=== PATIENT | female | born 1985 | race Caucasian/White ===

== ENCOUNTER → 2016-08-21 | Outpatient (REF) | payer OTHER ==
[~2016-08-21] MED LIST: PERC5TAB6 PO
[2016-08-21 19:20] LABS: CONTROL LINE UCG INT CTR LINE PRESENT
== END | disposition home or self-care (01) ==
LOC: M LAB REF 17:22
PROVIDERS: ATTEND Physician Assistant Medical
DX: R10.2 Pelvic and perineal pain (principal)

== ENCOUNTER 2016-11-28 10:21 | Emergency (ER) | payer OTHER ==
[~2016-11-28] VITALS: Ht 170.2 cm; Wt 99.8 kg
[2016-11-28 10:22] VITALS: BP 127/92
[2016-11-28] MEDS ORDERED: ALPRAZolam 0.25 MG TAB PO ONE (12:00)
--- NOTE | 2016-11-29 08:07 | ECGEPIP ---
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
== END 2016-11-28 13:02 | disposition home or self-care (01) ==
LOC: M ED 12:05
DX: F43.0 Acute stress reaction (principal); F41.9 Anxiety disorder, unspecified; Z90.49 Acquired absence of other specified parts of digestive tract; Z90.89 Acquired absence of other organs; Z91.040 Latex allergy status

== ENCOUNTER → 2017-02-25 | Outpatient (REF) | payer OTHER ==
[~2017-02-25] MED LIST changes: +PERC5TAB12 PO; -PERC5TAB6 PO
[2017-02-25 21:27] LABS: CONTROL LINE UCG INT CTR LINE PRESENT
[2017-02-26 15:14] LABS: HCG, SERUM QUANTITATIVE < 1.0 MIU/ML
== END ==
LOC: M LAB REF 20:52
PROVIDERS: ATTEND Physician Assistant Medical
DX: R10.9 Unspecified abdominal pain (principal); Z20.2 Contact with and (suspected) exposure to infections with a predominantly sexual mode of transmission

== ENCOUNTER → 2017-03-14 | Outpatient (REF) | payer OTHER | LOC: M LAB REF 16:56 | PROVIDERS: ATTEND Physician Assistant Medical | DX: N39.0 Urinary tract infection, site not specified (principal) ==

== ENCOUNTER → 2017-03-22 | Outpatient (CLI) | payer OTHER ==
--- NOTE | 2017-03-22 18:20 | REP ---
Pelvic sonography: History: Pelvic and perineal pain. Findings: Transabdominal and transvaginal scanning are performed. Uterine dimensions are normal at 7.3 x 3.1 x 4.1 cm. Endometrial echo 0.4 cm thick and centrally placed. There are tiny Nabothian cysts. Normal ovaries are seen. Right ovary dimensions are 2.0 x 1.5 x 2.4 cm. The left ovary measures 2.9 x 2.0 x 2.6 cm. Doppler flow is normal in both ovaries with resistive indices 0.60 on the right and 0.66 on the left. Impression: Normal pelvic sonography. Signed by Mina Suggs MD 03/23/2017 08:33 A
== END ==
LOC: M RAD 17:15
PROVIDERS: ATTEND Specialist
DX: R10.2 Pelvic and perineal pain (principal)

== ENCOUNTER 2017-06-26 22:28 | Emergency (ER) | payer MEDICAID ==
[~2017-06-26] VITALS: Ht 170.2 cm; Wt 90.9 kg
[2017-06-26] MEDS ORDERED: TYLE500T78 PO (22:47)
[2017-06-26] MEDS ORDERED: AMOX500C PO (23:40)
[2017-06-26] MEDS ORDERED: NORCOTAB PO (23:40)
[2017-06-26] MEDS ORDERED: AMOXICILLIN 500 MG CAP PO ONE (23:45)
[2017-06-26] MEDS ORDERED: NORCO, ANEXSIA 5/325MG TABLET (HYDROcodone/ACETAMINOPHEN) PO ONE (23:45)
[2017-06-26 23:51] VITALS: BP 156/70
== END 2017-06-26 23:52 | disposition home or self-care (01) ==
LOC: M ED 22:28
DX: K02.9 Dental caries, unspecified (principal)

== ENCOUNTER → 2017-08-21 | Outpatient (REF) | payer OTHER | LOC: M LAB REF 16:37 | DX: R19.7 Diarrhea, unspecified (principal) ==

== ENCOUNTER 2017-11-12 21:38 | Emergency (ER) | payer OTHER ==
[2017-11-12] MEDS: KETOROLAC 60 MG/2 ML VIAL (J1885) IM (23:06)
== END 2017-11-12 23:13 | disposition home or self-care (01) ==
LOC: M ED 21:38
DX: S76.012A Strain of muscle, fascia and tendon of left hip, initial encounter (principal); S50.11XA Contusion of right forearm, initial encounter; W01.10XA Fall on same level from slipping, tripping and stumbling with subsequent striking against unspecified object, initial encounter; Y92.099 Unspecified place in other non-institutional residence as the place of occurrence of the external cause; Y93.9 Activity, unspecified; Y99.9 Unspecified external cause status; F41.9 Anxiety disorder, unspecified; Z79.899 Other long term (current) drug therapy; Z91.040 Latex allergy status
CPT/HCPCS: J1885

== ENCOUNTER → 2017-11-16 | Outpatient (REF) | payer OTHER ==
[2017-11-16 17:24] LABS: TOTAL 25(OH) VITAMIN D 20.3 NG/ML (30.0-100.0)
[2017-11-16 17:26] LABS: ANION GAP 8 MEQ/L (8-16); BLOOD UREA NITROGEN 7 MG/DL (7-18); CALCIUM LEVEL 9.3 MG/DL (8.5-10.1); CARBON DIOXIDE LEVEL 26 MEQ/L (21-32); CHLORIDE LEVEL 104 MEQ/L (98-107); CREATININE FOR GFR 0.74 MG/DL (0.55-1.30); FREE T4 1.21 NG/DL (0.76-1.46); GLOMERULAR FILTRATION RATE > 60.0 (>60); GLUCOSE, FASTING 81 MG/DL (70-100); POTASSIUM SERUM 4.5 MEQ/L (3.5-5.1); SODIUM LEVEL 138 MEQ/L (136-145)
== END ==
LOC: M LAB REF 16:20
DX: T07.XXXD Unspecified multiple injuries, subsequent encounter (principal); F41.9 Anxiety disorder, unspecified; M25.562 Pain in left knee; W18.30XA Fall on same level, unspecified, initial encounter; Y92.009 Unspecified place in unspecified non-institutional (private) residence as the place of occurrence of the external cause

== ENCOUNTER → 2018-01-14 | Outpatient (REF) | payer OTHER ==
[2018-01-14 20:04] LABS: CHLAMYDIA DNA AMPLIFICATION NEGATIVE (NEGATIVE); GC DNA AMPLIFICATION NEGATIVE (NEGATIVE)
== END ==
LOC: M LAB REF 17:16
DX: Z11.3 Encounter for screening for infections with a predominantly sexual mode of transmission (principal)
CPT/HCPCS: 87591

== ENCOUNTER → 2018-02-08 | Outpatient (CLI) | payer OTHER ==
[2018-02-08 19:10] LABS: HIV 1&2 SCREEN CENTAUR NEGATIVE (NEGATIVE)
[2018-02-08 20:28] LABS: CHLAMYDIA DNA AMPLIFICATION NEGATIVE (NEGATIVE); GC DNA AMPLIFICATION NEGATIVE (NEGATIVE)
[2018-02-08 20:39] LABS: HCG, SERUM QUANTITATIVE < 1.0 MIU/ML
[2018-02-11 14:08] LABS: HEPATITIS B SURFACE ANTIGEN NEGATIVE (NEGATIVE)
[2018-02-11 14:09] LABS: HEPATITIS A ANTIBODY IGM NEGATIVE (NEGATIVE); HEPATITIS B CORE ANTIBODY IGM NEGATIVE (NEGATIVE)
[2018-02-11 14:09] LABS: HEPATITIS C VIRUS ABY INDEX 0.1 INDEX (<0.8)
== END ==
LOC: M SMT 14:27
DX: Z11.3 Encounter for screening for infections with a predominantly sexual mode of transmission (principal)
CPT/HCPCS: 87340

== ENCOUNTER → 2018-06-17 | Outpatient (REF) | payer OTHER ==
[2018-06-17 18:56] LABS: ALBUMIN/GLOBULIN RATIO 1.25 (1.00-1.93); ALKALINE PHOSPHATASE 65 U/L (45-117); ALT/SGPT 18 U/L (12-78); ANION GAP 6 MEQ/L (8-16); AST/SGOT 9 U/L (7-37); BILIRUBIN,TOTAL 0.5 MG/DL (0.2-1.0); BLOOD UREA NITROGEN 8 MG/DL (7-18); CALCIUM LEVEL 8.8 MG/DL (8.5-10.1); CARBON DIOXIDE LEVEL 28 MEQ/L (21-32); CHLORIDE LEVEL 107 MEQ/L (98-107); FOLATE 16.5 NG/ML; GLOMERULAR FILTRATION RATE > 60.0 (>60); GLUCOSE, FASTING 87 MG/DL (70-100); POTASSIUM SERUM 4.9 MEQ/L (3.5-5.1); SODIUM LEVEL 141 MEQ/L (136-145); TOTAL 25(OH) VITAMIN D 48.4 NG/ML (30.0-100.0); TOTAL PROTEIN 7.2 GM/DL (6.4-8.2); VITAMIN B12 LEVEL 641 PG/ML
== END ==
LOC: M LAB REF 17:24
DX: Z13.9 Encounter for screening, unspecified (principal)
CPT/HCPCS: 82746

== ENCOUNTER 2018-07-11 20:04 | Emergency (ER) | payer OTHER ==
[2018-07-11] MEDS: LORazepam 2 MG/ML VIAL (J2060) IV (20:51)
[2018-07-11] MEDS: diphenhydrAMINE INJ 50MG/ML VIAL (J1200) IV (20:51)
[2018-07-11] MEDS: KETOROLAC 30 MG/ML VIAL (J1885) IV (21:00)
[2018-07-11] MEDS: METOCLOPRAMIDE INJ 10MG/2ML VIAL (J2765) IV (21:00)
[2018-07-11] MEDS: NS 1,000 ML IV (21:00)
== END 2018-07-11 22:48 | disposition home or self-care (01) ==
LOC: M ED 20:04
DX: M79.2 Neuralgia and neuritis, unspecified (principal); K21.9 Gastro-esophageal reflux disease without esophagitis; Z79.899 Other long term (current) drug therapy; Z91.040 Latex allergy status
CPT/HCPCS: J1200

== ENCOUNTER → 2018-07-11 | Outpatient (CLI) | payer OTHER ==
[~2018-07-11] MED LIST changes: -PERC5TAB12 PO; +PROHANCE 279.3MG/ML 15ML VIAL (A9576) As Ordered
== END ==
LOC: M RAD 17:42
DX: M50.323 Other cervical disc degeneration at C6-C7 level (principal); G35 Multiple sclerosis; H81.49 Vertigo of central origin, unspecified ear
CPT/HCPCS: A9576

== ENCOUNTER → 2018-10-14 | Outpatient (REF) | payer OTHER ==
[~2018-10-14] MED LIST changes: +AMOX500C PO; +FISH7.5C PO; +MULTCAP PO; +NORCOTAB PO; +PERC5TAB12 PO; +PHEN-239 PO; -PROHANCE 279.3MG/ML 15ML VIAL (A9576) As Ordered; +TYLE500T78 PO
[2018-10-14 15:33] LABS: CHLAMYDIA DNA AMPLIFICATION NEGATIVE (NEGATIVE); GC DNA AMPLIFICATION NEGATIVE (NEGATIVE)
[2018-10-17 14:12] LABS: HPV HYBRID CAPTURE II Negative (Negative)
== END ==
LOC: M LAB REF 13:25
PROVIDERS: ATTEND Specialist
DX: Z11.3 Encounter for screening for infections with a predominantly sexual mode of transmission (principal)

== ENCOUNTER → 2019-09-05 | Outpatient (REF) | payer OTHER ==
[~2019-09-05] MED LIST changes: +HYDR-3715 PO; -NORCOTAB PO
[2019-09-05 14:13] LABS: HEMOGLOBIN A1c 4.8 %
[2019-09-05 14:17] LABS: FREE T4 1.05 NG/DL (0.76-1.46); RHEUMATOID FACTOR QUANT < 10.0 IU/ML (<15.0); TOTAL PROTEIN 7.5 GM/DL (6.4-8.2); VITAMIN B12 LEVEL 460 PG/ML
[2019-09-05 14:18] LABS: FOLATE 16.3 NG/ML
== END ==
LOC: M LABNEURO 10:12
PROVIDERS: ATTEND Psychiatry & Neurology Neurology
DX: M54.5 Low back pain (principal); G62.9 Polyneuropathy, unspecified

== ENCOUNTER 2019-09-12 03:49 | Emergency (ER) | payer OTHER ==
[~2019-09-12] VITALS: Ht 172.7 cm; Wt 72.7 kg
[2019-09-12] MEDS ORDERED: CLON-412 (04:12)
[2019-09-12] MEDS ORDERED: BUPR150T3 (04:12)
[2019-09-12] MEDS ORDERED: ONDANSETRON 4MG/2ML VIAL (J2405) IV ONE (04:15)
[2019-09-12] MEDS ORDERED: NS 1,000 ML IV ONE (04:15)
[2019-09-12] MEDS ORDERED: KETOROLAC 30 MG/ML VIAL (J1885) IV ONE (04:15)
[2019-09-12 04:22] LABS: HEMATOCRIT 34.3 % (36.0-47.0); HEMOGLOBIN 11.6 g/dl (12.0-15.5); MEAN CORPUSCULAR HEMOGLOBIN 29.2 pg (27.0-33.0); MEAN CORPUSCULAR HGB CONC 33.8 g/dl (32.0-36.5); MEAN CORPUSCULAR VOLUME 86.4 fl (80.0-96.0); PLATELET COUNT, AUTOMATED 253 10^3/uL (150-450); RED BLOOD COUNT 3.97 10^6/uL (4.00-5.40); WHITE BLOOD COUNT 8.3 10^3/uL (4.0-10.0)
[2019-09-12 04:47] LABS: ALBUMIN 3.8 GM/DL (3.2-5.2); BILIRUBIN,DIRECT 0.2 MG/DL (0.0-0.2); BILIRUBIN,TOTAL 0.4 MG/DL (0.2-1.0); TOTAL PROTEIN 6.8 GM/DL (6.4-8.2)
--- NOTE | 2019-09-12 05:08 | REPVR ---
PROCEDURE INFORMATION: Exam: CT Abdomen And Pelvis Without Contrast Exam date and time: 09/12/2019 4:03 AM Age: 33 years old Clinical indication: Abdominal pain; Flank; Right; Additional info: Right flank pain TECHNIQUE: Imaging protocol: Computed tomography of the abdomen and pelvis without contrast. Radiation optimization: All CT scans at this facility use at least one of these dose optimization techniques: automated exposure control; mA and/or kV adjustment per patient size (includes targeted exams where dose is matched to clinical indication); or iterative reconstruction. COMPARISON: CT ABD PELVIS W/O CONTRAST 11/05/2015 10:45 PM FINDINGS: Lungs: The visualized portions of the lung bases are normal. Liver: The unenhanced liver appears unremarkable. Gallbladder and bile ducts: There has been a cholecystectomy. There is no biliary ductal dilation. Pancreas: The pancreas appears unremarkable. No pancreatic ductal dilation identified. Spleen: The unenhanced spleen appears unremarkable. Adrenals: The adrenal glands are normal. Kidneys and ureters: The unenhanced kidneys appear unremarkable. There is no hydronephrosis. The nondilated distal ureters are difficult to trace, but no stones are seen along their expected course. Stomach and bowel: Mild diverticulosis is present in the distal colon. There is no dilation or thickening of the colon. The small bowel appears unremarkable. Appendix: There has been an appendectomy. Intraperitoneal space: There is no evidence of free intraperitoneal or pelvic fluid. Vasculature: No aortic aneurysm. Lymph nodes: There is no gross lymphadenopathy. Bladder: The bladder is mostly collapsed. No bladder stones are identified. Reproductive: The uterus is unremarkable. Bones/joints: There are degenerative changes in both hips. No suspicious osseous lesions. No acute fractures or dislocations. Soft tissues: An incision scar is again seen in the right lower anterior abdominal wall, unchanged. IMPRESSION: 1. No evidence of an acute abdominal or pelvic abnormality. 2. No nephrolithiasis, ureterolithiasis, or hydronephrosis identified. 3. Scattered diverticula in the colon without evidence of acute diverticulitis. Electronically signed by: Hoa Muñoz On 09/12/2019 05:08:27 AM
[2019-09-12] MEDS ORDERED: CYCL5TAB PO (06:47)
[2019-09-12] MEDS ORDERED: KETO10TAB PO (06:47)
[2019-09-12] MEDS ORDERED: KETOROLAC TROMETHAMINE 10 MG TAB PO ONE (07:15)
[2019-09-12 07:22] VITALS: BP 102/60
== END 2019-09-12 07:23 | disposition home or self-care (01) ==
LOC: M ED 03:49
DX: M62.838 Other muscle spasm (principal); K21.9 Gastro-esophageal reflux disease without esophagitis; F17.200 Nicotine dependence, unspecified, uncomplicated; Z91.040 Latex allergy status; Z79.899 Other long term (current) drug therapy
CPT/HCPCS: 74176; 80047; 80076; 81001; 84702; 85027; 96361; 96374; 96375; 99284; J1885; J2405

== ENCOUNTER → 2019-09-20 | Outpatient (REF) | payer OTHER ==
[~2019-09-20] MED LIST changes: +BUPR150T3; +CLON-412; +CYCL5TAB PO; +KETO10TAB PO
== END ==
LOC: M LAB REF 21:52
PROVIDERS: ATTEND Physician Assistant Medical
DX: R50.9 Fever, unspecified (principal)

== ENCOUNTER 2020-01-10 13:37 | Emergency (ER) | payer OTHER ==
[~2020-01-10] VITALS: Ht 170.2 cm; Wt 71.2 kg
[2020-01-10] MEDS ORDERED: METH1TAB40 (13:43)
[2020-01-10] MEDS ORDERED: CYMB1CAP4 (13:43)
[2020-01-10] MEDS ORDERED: CYMB1CAP5 (13:43)
[2020-01-10] MEDS ORDERED: XANA0.5T (13:43)
[2020-01-10] MEDS ORDERED: KETOROLAC 60MG 2ML VIAL IM ONE (14:30)
[2020-01-10] MEDS ORDERED: KETO10TAB PO (15:08)
[2020-01-10 15:14] VITALS: BP 138/61
--- NOTE | 2020-01-10 15:58 | REP ---
Single view pelvis, two views left hip and two views left femur: 01/10/2020. Indication: Left hip and leg pain following fall. Comparison: 11/12/2017. Findings: There is no acute fracture, subluxation or dislocation. No lytic or blastic lesions are present. There is moderate narrowing of the left hip joint with sclerotic changes indicative of mild to moderate osteoarthritis. Osteoarthritic changes are additionally noted within the patellofemoral compartment. Impression: No acute fracture. Electronically Signed by Dre Tsai DO 01/10/2020 03:50 P
== END 2020-01-10 15:22 | disposition home or self-care (01) ==
LOC: M ED 13:37
DX: S76.012A Strain of muscle, fascia and tendon of left hip, initial encounter (principal); S70.02XA Contusion of left hip, initial encounter; S70.12XA Contusion of left thigh, initial encounter; W18.39XA Other fall on same level, initial encounter; Y92.89 Other specified places as the place of occurrence of the external cause; Y93.K9 Activity, other involving animal care; M16.12 Unilateral primary osteoarthritis, left hip; M17.12 Unilateral primary osteoarthritis, left knee; F41.9 Anxiety disorder, unspecified; Z91.040 Latex allergy status; Z79.899 Other long term (current) drug therapy
CPT/HCPCS: 72170; 73502; 73552; 84702; 96372; 99284; J1885

== ENCOUNTER → 2020-03-11 | Outpatient (REF) | payer OTHER ==
[~2020-03-11] MED LIST changes: +CYMB1CAP4; +CYMB1CAP5; +METH1TAB40; +PRED20TA PO; +ROBA750T4 PO; +XANA0.5T
[2020-04-18 10:06] LABS: CHLAMYDIA DNA AMPLIFICATION NEGATIVE (NEGATIVE); GC DNA AMPLIFICATION NEGATIVE (NEGATIVE)
== END ==
LOC: M LAB REF 14:48
PROVIDERS: ATTEND Physician Assistant
DX: L98.9 Disorder of the skin and subcutaneous tissue, unspecified (principal)

== ENCOUNTER 2020-04-08 01:46 | Emergency (ER) | payer OTHER ==
[~2020-04-08] VITALS: Ht 170.2 cm; Wt 72.7 kg
[~2020-04-08 01:46] MED LIST changes: -PRED20TA PO; -ROBA750T4 PO
[2020-04-08] MEDS ORDERED: PRED20TA PO (03:56)
[2020-04-08] MEDS ORDERED: ROBA750T4 PO (03:56)
[2020-04-08] MEDS ORDERED: methocarbamoL 750 MG TAB PO ONE (04:00)
[2020-04-08] MEDS ORDERED: predniSONE 20 MG TAB PO ONE (04:00)
[2020-04-08 04:21] VITALS: BP 110/66
== END 2020-04-08 04:25 | disposition home or self-care (01) ==
LOC: M ED 01:46
DX: S76.011A Strain of muscle, fascia and tendon of right hip, initial encounter (principal); S76.912A Strain of unspecified muscles, fascia and tendons at thigh level, left thigh, initial encounter; M19.90 Unspecified osteoarthritis, unspecified site; Z88.8 Allergy status to other drugs, medicaments and biological substances; Z91.040 Latex allergy status; Z79.899 Other long term (current) drug therapy

== ENCOUNTER → 2020-05-06 | Outpatient (CLI) | payer OTHER ==
[~2020-05-06] MED LIST changes: +PRED20TA PO; +ROBA750T4 PO
--- NOTE | 2020-05-07 12:27 | ECWPNPC ---
PATIENT NAME: DREA PRYOR : 1985 GENDER: FEMALE VISIT DATE: 05/06/2020 DISCHARGE DATE: 05/06/20925 VISIT LOCKED DATE TIME: PHYSICIAN: ADRIANNA CARRASCO RESOURCE: ADRIANNA CARRASCO REASON FOR APPOINTMENT 1. BACK/HIPS 2. IMAGING AND REFERRAL SCANNED 04/30 HISTORY OF PRESENT ILLNESS DEPRESSION SCREENING: PHQ-2 (2015 EDITION) LITTLE INTEREST OR PLEASURE IN DOING THINGS?NOT AT ALL FEELING DOWN, DEPRESSED, OR HOPELESS?NOT AT ALL TOTAL SCORE0 34-YEAR-OLD FEMALE IN FOR INITIAL PAIN CONSULT. SHE HAS COMPLAINTS OF BACK AND HIP PAIN THAT HAS BEEN PRESENT FOR MULTIPLE YEARS, PATIENT ADMITS TO HIP INJECTIONS IN THE PAST THAT DID NOT HELP HER PAIN. SHE IS CURRENTLY ON MEDICAL MARIJUANA TO HELP ALLEVIATE HER SYMPTOMS. SHE RATES HER PAIN CURRENTLY AT A 4 OUT OF 10 AND DESCRIBES IT A STIFFNESS. GENERAL: - -. FALL RISK SCREENING: SCREENING :TWO OR MORE FALLS WITH INJURY IN THE PAST YEAR INJURING HIPS AND LEGS AND BACK, PT WAS SEEN AT HOSPITAL IMAGING WAS DONE AND PT WAS REFERRED TO ORTHO, PT WAS TREATED FOR TENDON TEAR, ADVANCED OSTEOARTHRITIS AND HIP DYSPLASIA. PAIN SCREENING: PATIENT HAS A COMPLAINT OF ACUTE OR CHRONIC PAIN :YES LOCATION OF PAIN:LEFT HIP, RIGHT HIP, BACK NURSING NOTE: - -. PAIN CENTER INTAKE QUESTIONS: DO YOU HAVE A HISTORY OF MRSA? :YES PT HAD APPENDIX OUT 2004 THEN SHE WENT SEPTIC SHOCK WITH A STAPH INFECTION, NOT SURE IF IT WAS MRSA OR NOT DO YOU TAKE A BLOOD THINNERS? :NO DO YOU HAVE ANY BLEEDING DISORDERS? :NO ANY NEW NUMBNESS OR WEAKNESS IN YOUR LEGS OR ARMS? :YES PT HAS BILAT ARMS SEVERELY NUMBNESS WITH ACTIVITY ANY PACEMAKER,DEFIBRILLATOR, OR DORSAL COLUMN STIMULATOR? :NO DO YOU HAVE ANY RASHES OR OPEN SORES? :NO ARE YOU ALLERGIC TO IV DYE? :NO GADALIDIUM FOR MRI'S ARE YOU DIABETIC? :NO ANY NEW PROBLEMS WITH YOUR MEDICATIONS? :NO HAVE YOU RECEIVED A VACCINE IN THE PAST 30 DAYS? :NO DO YOU PLAN TO RECEIVE A VACCINE IN THE NEXT 21 DAYS? :NO DO YOU NEED ANY PRESCRIPTION? :YES PT ASKING FOR PAIN CONTROL MEDS, LIDO PATCHES? DO YOU TAKE ANY IMMUNOSUPPRESSIVE MEDICATIONS? :NO CURRENT MEDICATIONS TAKING ATOMOXETINE HCL 10 MG CAPSULE DIRECTED ORALLY TAKING ALPRAZOLAM 0.5 MG TABLET 1 TABLET ORALLY DAILY PRN TAKING DULOXETINE HCL 40 MG CAPSULE DELAYED RELEASE PARTICLES 1 CAPSULE ORALLY ONCE A DAY TAKING CLONIDINE HCL 0.1 MG TABLET 1 TABLET ORALLY ONCE A DAY PRN TAKING METHOCARBAMOL 500 MG TABLET 1 TABLET ORALLY BID PRN TAKING CYCLOBENZAPRINE HCL 10 MG TABLET 1 TABLET AT BEDTIME NEEDED ORALLY PRN TAKING MULTIVITAL NOT-TAKING PROVERA 10 MG TABLET 1 TABLET WITH FOOD ORALLY ONCE A DAY NOT-TAKING PHENTERMINE HCL 37.5 MG CAPSULE 1 CAPSULE ORALLY ONCE A DAY NOT-TAKING AMOXICILLIN 500 MG TABLET 1 TABLET ORALLY EVERY 8 HRS MEDICATION LIST REVIEWED AND RECONCILED WITH THE PATIENT PAST MEDICAL HISTORY REPORTS HISTORY OF PCOS DIAGNOSED AN ADOLESCENT, THOUGH LABS IN 2009 ([employer]) DO NOT SUGGEST REPORTS ENDOMETRIOSIS BUT LAPAROSCOPY BY DR. BEY (12/2013) SHOWS "NO EVIDENCE OF ENDOMETRIOSIS" 10 YEAR CARDIOVASCULAR RISK CALCULATED AT 3.3% (01/2014) -- LOW RISK ALLERGIES LATEX (FOR ALLERGY USE ONLY): RASH/BREATHING - ALLERGY GADOLINIUM: SEVERE PAIN - ALLERGY METAL: RASH/SWELLING - ALLERGY ADHESIVE BANDAGES: BLISTERS/RASH - ALLERGY SURGICAL HISTORY REMOVAL OF ADHESIONS, 01/16/2014 LAPARASCOPIC CHOLECYSTECTOMY 05/2006 APPENDECTOMY 01/2005 ORIF LEFT ANKLE 08/1999 ECTOPIC 06/30/2016 LEFT ELBOW RADIAL HEAD REMOVED 2005 LEFT HAND REPAIR 2018 FAMILY HISTORY FATHER: ALIVE, COPD MOTHER: ALIVE, ESOPHAGUS CANCER, STOMACH CANCER/ GASTRIC BYPASS SIBLINGS: 1/2 BROTHER AND 1/2 SISTER MATERNAL GRAND MOTHER: DIAGNOSED WITH DIABETES MATERNAL UNCLE: DIABETES 1 BROTHER(S) , 1 SISTER(S) - HEALTHY. EXTENSIVE HISTORY OF DIABETES IN MOTHER'S SIDE OF THE FAMILY. SOCIAL HISTORY GENERAL: TOBACCO USE ARE YOU A:FORMER SMOKER HOW LONG HAS IT BEEN SINCE YOU LAST SMOKED?6-12 MONTHS ADDITIONAL FINDINGS: TOBACCO USERTRIVIAL CIGARETTE SMOKER (LESS THAN ONE CIGARETTE/DAY) SMOKING CESSATION INFORMATION GIVEN02/04/2016 LATEX QUESTIONNAIRE LATEX ALLERGY : HAVE YOU EVER DEVELOPED ANY TYPE OF REACTION AFTER HANDLING LATEX PRODUCTS SUCH RUBBER GLOVES, CONDOMS, DIAPHRAGMS, BALLOONS, SOCKS, OR UNDERWEAR?YES - PLEASE INDICATE :RUBBER GLOVES,CONDOMS,SOCKS,UNDERWEAR,OTHER (DOCUMENT IN NOTES) LATEX ALLERGY : HAVE YOU EVER DEVELOPED ANY TYPE OF REACTION DURING OR AFTER DENTAL APPOINTMENT, VAGINAL/RECTAL EXAMINATION, SURGICAL PROCEDURE, OR ANY OTHER EXPOSURE?YES - PLEASE INDICATE :DENTAL PROCEDURE LATEX RISK : HAVE YOU EVER HAD ANY DIFFICULTY BREATHING OR HIVES AFTER EATING OR HANDLING ANY FRUITS, OR VEGETABLES; SUCH KIWI, BANANAS, STONE FRUITS, OR CHESTNUTSNO LATEX RISK : DO YOU HAVE A PREVIOUS PERSONAL HISTORY OF MORE THAN NINE SURGERIES, SPINA BIFIDA, OR REPEATED CATHERIZATIONS? YES - PLEASE INDICATE : > 9 SURGERIES LATEX RISK : ARE YOU FREQUENTLY EXPOSED TO LATEX PRODUCTS IN YOUR OCCUPATION?NO DATE ASKED : 05/06/2020 BMI CARE GOAL FOLLOW-UP ABOVE NORMAL BMI FOLLOW-UPGIVING ENCOURAGEMENT TO EXERCISE ALCOHOL SCREENING DID YOU HAVE A DRINK CONTAINING ALCOHOL IN THE PAST YEAR?YES HOW OFTEN DID YOU HAVE A DRINK CONTAINING ALCOHOL IN THE PAST YEAR?MONTHLY OR LESS (1 POINT) HOW MANY DRINKS DID YOU HAVE ON A TYPICAL DAY WHEN YOU WERE DRINKING IN THE PAST YEAR?3 OR 4 (1 POINT) HOW OFTEN DID YOU HAVE SIX OR MORE DRINKS ON ONE OCCASION IN THE PAST YEAR?NEVER (0 POINTS) POINTS2 INTERPRETATIONNEGATIVE RECREATIONAL DRUG USE DRUG USE?YES MARIJUANA ONCE A MONTH CAFFEINE 1-2/DAY COFFEE. SEXUAL HX HAD SEX IN THE LAST 12 MONTHS (VAGINAL, ORAL, OR ANAL)?YES WITHMEN ONLY USE PROTECTION?NO LMP:MAY 2019 HAVE YOU EVER HAD AN STD?YES CHLAMYDIA?YES HIV / HEP-C SCREENING HIV TEST OFFERED TO PATIENT:YES DATE OFFERED:09/22/2019 TEST ACCEPTED:NO HEP-C TEST OFFERED TO PATIENT:YES DATE OFFERED:09/22/2019 REASON:PATIENT DECLINED TEST ACCEPTED:NO REASON:PATIENT DECLINED BROCHURE PROVIDED TO PATIENTNO CAODAISM CAODAISM NO MANDAEN BELIEFS THAT WOULD IMPACT HEALTH CARE. LANGUAGE LANGUAGES SPOKEN:CONGOLESE LEARNING BARRIERS / SPECIAL NEEDS CHANGE FROM LAST VISIT?NO BARRIERS TO LEARNING?NO HEARING IMPAIRED?NO VISION IMPAIRED?NO COGNITIVELY IMPAIRED?NO READINESS TO LEARN?YES LEARNING PREFERENCES?NO LEARNING CAPABILITIES PRESENT?YES EMOTIONAL BARRIERS?NO SPECIAL DEVICES?NO INSTRUCTIONAL PARAPROFESSIONAL NEEDED?NO DOMESTIC VIOLENCE STATUS:SINGLE NO HISTORY OF ABUSE DO YOU FEEL SAFE IN YOUR ENVIRONMENT?YES DIET: REGULAR. EXERCISE: WALKS. MARITAL STATUS: . FIANCE CURRENTLY. OTHERS AT HOME: BOYFRIEND, ROOMMATE. PAIN CLINIC PFS, CLERGY, PUBLIC HEALTH REFERRALS HAS THE PATIENT BEEN EDUCATED REGARDING HIS/HER PLAN OF CARE?YES HAS THE PATIENT BEEN EDUCATED REGARDING PAIN, THE RISK FOR PAIN, THE IMPORTANCE OF EFFECTIVE PAIN MANAGEMENT, AND THE PAIN ASSESSMENT PROCESS?YES HOSPITALIZATION/MAJOR DIAGNOSTIC PROCEDURE CHOLECYSTITIS AND LAP PEPE 05/2006 APPENDECTOMY 01/2005 READMITTED WITH ABSCESS POST APPENDECTOMY 01/2005 ANKLE FRACTURE 08/1999 REVIEW OF SYSTEMS CONSTITUTIONAL: ANY RECENT FEVER NO . CHILLS NO . WEIGHT CHANGE OF UNKNOWN REASONS NO . GASTROENTEROLOGY: NEW UNEXPLAINABLE CHANGES IN BOWEL CONTROL NO . CONSTIPATION NO . GENITOURINARY: ANY NEW CHANGE IN BLADDER CONTROL? NO . NEUROLOGY: NEW ONSET DIZZINESS OR NEUROLOGICAL CHANGES NOT MENTIONED NO . NEW NUMBNESS OR PAIN PATTERNS NOT MENTIONED AND PERTINENT TO TODAY'S VISIT NO . CARDIOLOGY: NEW CHEST PRESSURE NO . NEW CHEST PAIN NO . RESPIRATORY: UNEXPLAINABLE COUGH NO . NEW SHORTNESS OF BREATH NO . VITAL SIGNS WT 169.6 LBS, HT 67 IN, BMI 26.56 INDEX, BP 113/66 MM HG, HR 56 /MIN, RR 18 /MIN, TEMP 97.0 F, OXYGEN SAT % 99%, NA INITIALS SC 08:42, REVIEWED BY: SHMUEL DE SANTIAGO CMA. EXAMINATION GENERAL EXAMINATION: GENERALNO ACUTE DISTRESS, WELL NOURISHED AND HYDRATED. PSYCHAPPROPRIATE MOOD AND AFFECT . LUNGS:CLEAR TO AUSCULTATION BILATERALLY, NO WHEEZES, RHONCHI, RALES. HEART:NO MURMURS, REGULAR RATE AND RHYTHM. BACK:POINT TENDER LEFT LUMBAR SPINE, SURROUNDING SKIN SHOWS NO ERYTHEMA, ECCHYMOSIS, INCREASED WARMTH, AND/OR SKIN ERUPTIONS NOTED. POSITIVE MODIFIED SLR LEFT SIDE . MUSCULOSKELETAL:NOTABLE WEAKNESS OF THE LEFT LOWER EXTREMITY RIGHT LOWER EXTREMITY WITHIN NORMAL LIMITS . ASSESSMENTS INTERVERTEBRAL DISC DISORDER WITH RADICULOPATHY OF LUMBAR REGION - M51.16 (PRIMARY) PAIN IN UNSPECIFIED HIP - M25.559 TREATMENT INTERVERTEBRAL DISC DISORDER WITH RADICULOPATHY OF LUMBAR REGION START VOLTAREN GEL, 1 %, 1GM APPLIED TO AFFECTED AREA, TRANSDERMAL, 4 TIMES DAILY PRN, 30 DAYS, 1 TUBE CLINICAL NOTES: 34-YEAR-OLD FEMALE IN FOR PAIN CONSULT REGARDING BILATERAL HIP AND LOW BACK PAIN. GIVEN PRESENTING SYMPTOMS AND RESULTS PHYSICAL EXAMINATION RECOMMENDED VOLTAREN GEL ( PATIENT HAS TRIED ORAL DICLOFENAC AND HAD RESULTING LEG SWELLING) AND POTENTIALLY INCREASING PATIENT CYMBALTA TO 60 MG PENDING DISCUSSION WITH HER PSYCHIATRIC PROVIDER. PATIENT HAS EXPRESSED UNDERSTANDING OF AND WAS IN AGREEMENT WITH TREATMENT PLAN. GIVEN TIME TO ASK QUESTIONS AND EXPRESS CONCERNS. OTHERS CLINICAL NOTES: 05/05/20 @ 0930 MENDEL SPARKS RN BSN. PREVENTIVE MEDICINE PAIN CLINIC TEACHING: THE PATIENT HAS BEEN EDUCATED REGARDING PAIN, THE RISK FOR PAIN, THE IMPORTANCE OF EFFECTIVE PAIN MANAGEMENT, AND THE PAIN ASSESSMENT PROCESS. : REVIEWED MEDICATIONS AND PLAN OF CARE WITH PATIENT. PATIENT ACKNOWLEDGES UNDERSTANDIG. Lenard DE SANTIAGO [facility] PROCEDURE CODES FA211 ESTABILISHED PATIENT [facility] CHARGE DISPOSITION & COMMUNICATION FOLLOW UP 4 WEEKS (REASON: BACK AND HIP PAIN ) ELECTRONICALLY SIGNED BY BINAKA CERVANTES ON 05/07/2020 AT 12:26 PM EDT DISCLAIMER : THIS IS A VISIT SUMMARY EXTRACTED FROM THE [employer] CHART. IT IS NOT A COPY OF THE [employer] PROGRESS NOTE. MUKESH
== END ==
LOC: M PAIN 08:15
PROVIDERS: ATTEND Family Medicine
DX: M51.16 Intervertebral disc disorders with radiculopathy, lumbar region (principal); M25.559 Pain in unspecified hip; F17.210 Nicotine dependence, cigarettes, uncomplicated; Z91.040 Latex allergy status; Z91.09 Other allergy status, other than to drugs and biological substances; Z79.899 Other long term (current) drug therapy

== ENCOUNTER → 2020-05-12 | Outpatient (REF) | payer OTHER | LOC: M SFHCWAGY 17:04 | PROVIDERS: ATTEND Specialist | DX: Z20.2 Contact with and (suspected) exposure to infections with a predominantly sexual mode of transmission (principal) ==

== ENCOUNTER → 2020-06-02 | Outpatient (CLI) | payer OTHER ==
[2020-06-02 11:23] LABS: C REACTIVE PROTEIN QUANTITATIV < 0.30 MG/DL (0.00-0.30); RHEUMATOID FACTOR QUANT < 10.0 IU/ML (<15.0); URIC ACID 3.4 MG/DL (2.6-6.0)
[2020-06-03 14:13] LABS: ANTINUCLEAR ANTIBODIES DIRECT Negative (Negative)
== END ==
LOC: M LAB 09:56
PROVIDERS: ATTEND Orthopaedic Surgery
DX: M25.551 Pain in right hip (principal); M25.552 Pain in left hip

== ENCOUNTER → 2020-06-15 | Outpatient (CLI) | payer OTHER ==
--- NOTE | 2020-06-16 23:47 | ECWPNPC ---
PATIENT NAME: DREA PRYOR : 1985 GENDER: FEMALE VISIT DATE: 06/15/2020 DISCHARGE DATE: 06/15/20 1131 VISIT LOCKED DATE TIME: PHYSICIAN: ADRIANNA CARRASCO RESOURCE: ADRIANNA CARRASCO REASON FOR APPOINTMENT 1. BACK AND HIP PAIN HISTORY OF PRESENT ILLNESS GENERAL: -34-YEAR-OLD FEMALE IN FOR CHRONIC PAIN FOLLOW-UP. SHE RATES HER PAIN CURRENTLY AT A 6 OUT OF 10 AND DESCRIBES IT THROBBING. PATIENT WAS STARTED ON DICLOFENAC GEL AT LAST CLINIC VISIT BUT HER INSURANCE DENIED COVERAGE. SHE IS CURRENTLY BEING PRESCRIBED TRAMADOL FROM ANOTHER PROVIDER. FALL RISK SCREENING: SCREENING :TWO OR MORE FALLS WITHOUT INJURY IN THE PAST YEAR PAIN SCREENING: PATIENT HAS A COMPLAINT OF ACUTE OR CHRONIC PAIN :YES LOCATION OF PAIN:MID BACK, LOW BACK, LEG(S) INTENSITY OF PAIN (SCALE OF 1 TO 10):6 WHAT DOES YOUR PAIN FEEL LIKE:THROBBING DURATION:ALL DAY PAIN IS INCREASED BY:ACTIVITIES, PROLONGED STANDING PAIN IS DECREASED BY:USE OF PAIN MEDICATIONS TREATMENT/MEDICATIONS USED TO MANAGE PAIN:OPIOIDS PAIN HAS INTERFERED WITH THE FOLLOWING:HOUSEWORK, ENJOYMENT OF LIFE NURSING NOTE: -. PAIN CENTER INTAKE QUESTIONS: DO YOU HAVE A HISTORY OF MRSA? :YES PT HAD APPENDIX OUT 2004 THEN SHE WENT SEPTIC SHOCK WITH A STAPH INFECTION, NOT SURE IF IT WAS MRSA OR NOT DO YOU TAKE A BLOOD THINNERS? :NO DO YOU HAVE ANY BLEEDING DISORDERS? :NO ANY NEW NUMBNESS OR WEAKNESS IN YOUR LEGS OR ARMS? :YES PT HAS BILAT ARMS SEVERELY NUMBNESS WITH ACTIVITY ANY PACEMAKER,DEFIBRILLATOR, OR DORSAL COLUMN STIMULATOR? :NO DO YOU HAVE ANY RASHES OR OPEN SORES? :NO ARE YOU ALLERGIC TO IV DYE? :NO GADALIDIUM FOR MRI'S ARE YOU DIABETIC? :NO ANY NEW PROBLEMS WITH YOUR MEDICATIONS? :NO HAVE YOU RECEIVED A VACCINE IN THE PAST 30 DAYS? :NO DO YOU PLAN TO RECEIVE A VACCINE IN THE NEXT 21 DAYS? :NO DO YOU NEED ANY PRESCRIPTION? :NO DO YOU TAKE ANY IMMUNOSUPPRESSIVE MEDICATIONS? :NO CURRENT MEDICATIONS TAKING TRAMADOL HCL 50 MG TABLET SOLUBLE DIRECTED ORALLY , NOTES: 3 TIMES A DAY TAKING PERCOCET 7.5-325 MG TABLET 1 TABLET NEEDED ORALLY EVERY 6 HRS, NOTES: 2 TIMES A DAY TAKING PROVERA 10 MG TABLET 1 TABLET WITH FOOD ORALLY ONCE A DAY TAKING PHENTERMINE HCL 37.5 MG CAPSULE 1 CAPSULE ORALLY ONCE A DAY TAKING PROVERA 10 MG TABLET 1 TABLET WITH FOOD ORALLY ONCE A DAY TAKING PHENTERMINE HCL 37.5 MG CAPSULE 1 CAPSULE ORALLY ONCE A DAY TAKING AMOXICILLIN 500 MG TABLET 1 TABLET ORALLY EVERY 8 HRS DISCONTINUED VOLTAREN 1 % GEL 1GM APPLIED TO AFFECTED AREA TRANSDERMAL 4 TIMES DAILY PRN UNKNOWN ATOMOXETINE HCL 10 MG CAPSULE DIRECTED ORALLY UNKNOWN ALPRAZOLAM 0.5 MG TABLET 1 TABLET ORALLY DAILY PRN UNKNOWN DULOXETINE HCL 40 MG CAPSULE DELAYED RELEASE PARTICLES 1 CAPSULE ORALLY ONCE A DAY UNKNOWN CLONIDINE HCL 0.1 MG TABLET 1 TABLET ORALLY ONCE A DAY PRN UNKNOWN METHOCARBAMOL 500 MG TABLET 1 TABLET ORALLY BID PRN UNKNOWN CYCLOBENZAPRINE HCL 10 MG TABLET 1 TABLET AT BEDTIME NEEDED ORALLY PRN UNKNOWN MULTIVITAL MEDICATION LIST REVIEWED AND RECONCILED WITH THE PATIENT PAST MEDICAL HISTORY REPORTS HISTORY OF PCOS DIAGNOSED AN ADOLESCENT, THOUGH LABS IN 2009 ([employer]) DO NOT SUGGEST REPORTS ENDOMETRIOSIS BUT LAPAROSCOPY BY DR. BEY (12/2013) SHOWS "NO EVIDENCE OF ENDOMETRIOSIS" 10 YEAR CARDIOVASCULAR RISK CALCULATED AT 3.3% (01/2014) -- LOW RISK ALLERGIES LATEX (FOR ALLERGY USE ONLY): RASH/BREATHING - ALLERGY GADOLINIUM: SEVERE PAIN - ALLERGY METAL: RASH/SWELLING - ALLERGY ADHESIVE BANDAGES: BLISTERS/RASH - ALLERGY SURGICAL HISTORY REMOVAL OF ADHESIONS, 01/16/2014 LAPARASCOPIC CHOLECYSTECTOMY 05/2006 APPENDECTOMY 01/2005 ORIF LEFT ANKLE 08/1999 ECTOPIC 06/30/2016 LEFT ELBOW RADIAL HEAD REMOVED 2005 LEFT HAND REPAIR 2019 FAMILY HISTORY FATHER: ALIVE, COPD MOTHER: ALIVE, ESOPHAGUS CANCER, STOMACH CANCER/ GASTRIC BYPASS SIBLINGS: 1/2 BROTHER AND 1/2 SISTER MATERNAL GRAND MOTHER: DIAGNOSED WITH DIABETES MATERNAL UNCLE: DIABETES 1 BROTHER(S) , 1 SISTER(S) - HEALTHY. EXTENSIVE HISTORY OF DIABETES IN MOTHER'S SIDE OF THE FAMILY. SOCIAL HISTORY GENERAL: TOBACCO USE ARE YOU A:FORMER SMOKER HOW LONG HAS IT BEEN SINCE YOU LAST SMOKED?6-12 MONTHS ADDITIONAL FINDINGS: TOBACCO USERTRIVIAL CIGARETTE SMOKER (LESS THAN ONE CIGARETTE/DAY) SMOKING CESSATION INFORMATION GIVEN02/04/2016 LATEX QUESTIONNAIRE LATEX ALLERGY : HAVE YOU EVER DEVELOPED ANY TYPE OF REACTION AFTER HANDLING LATEX PRODUCTS SUCH RUBBER GLOVES, CONDOMS, DIAPHRAGMS, BALLOONS, SOCKS, OR UNDERWEAR?YES LATEX ALLERGY : HAVE YOU EVER DEVELOPED ANY TYPE OF REACTION DURING OR AFTER DENTAL APPOINTMENT, VAGINAL/RECTAL EXAMINATION, SURGICAL PROCEDURE, OR ANY OTHER EXPOSURE?YES - PLEASE INDICATE :RUBBER GLOVES,CONDOMS,SOCKS,UNDERWEAR,OTHER (DOCUMENT IN NOTES) - PLEASE INDICATE :DENTAL PROCEDURE DATE ASKED : 05/06/2020 LATEX RISK : HAVE YOU EVER HAD ANY DIFFICULTY BREATHING OR HIVES AFTER EATING OR HANDLING ANY FRUITS, OR VEGETABLES; SUCH KIWI, BANANAS, STONE FRUITS, OR CHESTNUTSNO LATEX RISK : DO YOU HAVE A PREVIOUS PERSONAL HISTORY OF MORE THAN NINE SURGERIES, SPINA BIFIDA, OR REPEATED CATHERIZATIONS? YES - PLEASE INDICATE : > 9 SURGERIES LATEX RISK : ARE YOU FREQUENTLY EXPOSED TO LATEX PRODUCTS IN YOUR OCCUPATION?NO BMI CARE GOAL FOLLOW-UP ABOVE NORMAL BMI FOLLOW-UPGIVING ENCOURAGEMENT TO EXERCISE ALCOHOL SCREENING DID YOU HAVE A DRINK CONTAINING ALCOHOL IN THE PAST YEAR?YES HOW OFTEN DID YOU HAVE SIX OR MORE DRINKS ON ONE OCCASION IN THE PAST YEAR?NEVER (0 POINTS) HOW MANY DRINKS DID YOU HAVE ON A TYPICAL DAY WHEN YOU WERE DRINKING IN THE PAST YEAR?3 OR 4 (1 POINT) HOW OFTEN DID YOU HAVE A DRINK CONTAINING ALCOHOL IN THE PAST YEAR?MONTHLY OR LESS (1 POINT) POINTS2 INTERPRETATIONNEGATIVE RECREATIONAL DRUG USE DRUG USE?YES MARIJUANA ONCE A MONTH CAFFEINE 1-2/DAY COFFEE. SEXUAL HX HAD SEX IN THE LAST 12 MONTHS (VAGINAL, ORAL, OR ANAL)?YES WITHMEN ONLY USE PROTECTION?NO LMP:MAY 2019 HAVE YOU EVER HAD AN STD?YES CHLAMYDIA?YES HIV / HEP-C SCREENING HIV TEST OFFERED TO PATIENT:YES DATE OFFERED:09/22/2019 TEST ACCEPTED:NO HEP-C TEST OFFERED TO PATIENT:YES DATE OFFERED:09/22/2019 REASON:PATIENT DECLINED TEST ACCEPTED:NO REASON:PATIENT DECLINED BROCHURE PROVIDED TO PATIENTNO MORMONISM MORMONISM NO YAZIDISM BELIEFS THAT WOULD IMPACT HEALTH CARE. LANGUAGE LANGUAGES SPOKEN:KOREAN LEARNING BARRIERS / SPECIAL NEEDS CHANGE FROM LAST VISIT?NO BARRIERS TO LEARNING?NO HEARING IMPAIRED?NO VISION IMPAIRED?NO COGNITIVELY IMPAIRED?NO READINESS TO LEARN?YES LEARNING PREFERENCES?NO LEARNING CAPABILITIES PRESENT?YES EMOTIONAL BARRIERS?NO SPECIAL DEVICES?NO ASSISTANT EDUCATION DIRECTOR NEEDED?NO DOMESTIC VIOLENCE STATUS:SINGLE NO HISTORY OF ABUSE DO YOU FEEL SAFE IN YOUR ENVIRONMENT?YES DIET: REGULAR. EXERCISE: WALKS. MARITAL STATUS: . FIANCE CURRENTLY. OTHERS AT HOME: BOYFRIEND, ROOMMATE. PAIN CLINIC PFS, CLERGY, PUBLIC HEALTH REFERRALS HAS THE PATIENT BEEN EDUCATED REGARDING HIS/HER PLAN OF CARE?YES HAS THE PATIENT BEEN EDUCATED REGARDING PAIN, THE RISK FOR PAIN, THE IMPORTANCE OF EFFECTIVE PAIN MANAGEMENT, AND THE PAIN ASSESSMENT PROCESS?YES HOSPITALIZATION/MAJOR DIAGNOSTIC PROCEDURE CHOLECYSTITIS AND LAP PEPE 05/2006 APPENDECTOMY 01/2005 READMITTED WITH ABSCESS POST APPENDECTOMY 01/2005 ANKLE FRACTURE 08/1999 REVIEW OF SYSTEMS CONSTITUTIONAL: ANY RECENT FEVER NO . CHILLS NO . WEIGHT CHANGE OF UNKNOWN REASONS NO . GASTROENTEROLOGY: NEW UNEXPLAINABLE CHANGES IN BOWEL CONTROL NO . CONSTIPATION NO . GENITOURINARY: ANY NEW CHANGE IN BLADDER CONTROL? NO . NEUROLOGY: NEW ONSET DIZZINESS OR NEUROLOGICAL CHANGES NOT MENTIONED NO . NEW NUMBNESS OR PAIN PATTERNS NOT MENTIONED AND PERTINENT TO TODAY'S VISIT NO . CARDIOLOGY: NEW CHEST PRESSURE NO . NEW CHEST PAIN NO . RESPIRATORY: UNEXPLAINABLE COUGH NO . NEW SHORTNESS OF BREATH NO . VITAL SIGNS WT 162.0 LBS, HT 67 IN, BMI 25.37 INDEX, BP 125/67 MM HG, HR 73 /MIN, RR 18 /MIN, TEMP 97.3 F, OXYGEN SAT % 96%, NA INITIALS AW 1101. EXAMINATION GENERAL EXAMINATION: GENERALNO ACUTE DISTRESS, WELL NOURISHED AND HYDRATED. PSYCHAPPROPRIATE MOOD AND AFFECT . LUNGS:CLEAR TO AUSCULTATION BILATERALLY, NO WHEEZES, RHONCHI, RALES. HEART:NO MURMURS, REGULAR RATE AND RHYTHM. ASSESSMENTS INTERVERTEBRAL DISC DISORDER WITH RADICULOPATHY OF LUMBAR REGION - M51.16 (PRIMARY) TREATMENT INTERVERTEBRAL DISC DISORDER WITH RADICULOPATHY OF LUMBAR REGION START ZYRTEC ALLERGY TABLET, 10 MG, 1 TABLET, ORALLY, ONCE A DAY, 30 DAY(S), 30 NOTES: 34-YEAR-OLD FEMALE IN FOR CHRONIC PAIN FOLLOW-UP. PATIENT HAS REQUESTED A REFERRAL TO PLASTIC SURGERY FOR POTENTIAL SKIN REMOVAL SHE HAS LOST AN EXCESSIVE AMOUNT OF WEIGHT AND STATES THAT SHE FEELS HER PAIN STEMS FROM THE WEIGHT OF THE EXCESS SKIN. GIVEN PRESENTING SYMPTOMS RECOMMEND REFERRAL TO PLASTIC SURGERY WITH FOLLOW-UP IN 4 MONTHS. HAD DISCUSSION WITH PATIENT REGARDING USE OF MEDICAL MARIJUANA AND THE FACT THAT THIS CORK INSULATOR WOULD NOT PRESCRIBE OPIATES GIVEN THE PATIENT WAS ON MEDICAL MARIJUANA. PATIENT IS BETWEEN PROVIDERS THIS CORK INSULATOR WILL SUPPLY PATIENT WITH A PRESCRIPTION FOR ZYRTEC GOING FORWARD PATIENT IS TO GET PRESCRIPTION FROM HER NEW PRIMARY CARE PROVIDER. PATIENT HAS EXPRESSED UNDERSTANDING OF AND WAS IN AGREEMENT WITH TREATMENT PLAN. GIVEN TIME TO ASK QUESTIONS AND EXPRESS CONCERNS. 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 PROCEDURE CODES FA211 ESTABILISHED PATIENT NEW [facility] CHARGE DISPOSITION & COMMUNICATION FOLLOW UP 4 MONTHS (REASON: BACK PAIN ) ELECTRONICALLY SIGNED BY BIANKA CERVANTES ON 06/16/2020 AT 09:32 AM EST DISCLAIMER : THIS IS A VISIT SUMMARY EXTRACTED FROM THE [email or web address] CHART. IT IS NOT A COPY OF THE [employer] PROGRESS NOTE. MUKESH
== END ==
LOC: M PAIN 10:30
PROVIDERS: ATTEND Family Medicine
DX: M51.16 Intervertebral disc disorders with radiculopathy, lumbar region (principal); G89.29 Other chronic pain; Z87.891 Personal history of nicotine dependence; Z91.040 Latex allergy status; Z91.09 Other allergy status, other than to drugs and biological substances; Z79.891 Long term (current) use of opiate analgesic; Z79.899 Other long term (current) drug therapy

== ENCOUNTER 2020-07-25 22:30 | Emergency (ER) | payer OTHER ==
[~2020-07-25] VITALS: Ht 170.2 cm; Wt 72.2 kg
[2020-07-25] MEDS ORDERED: STRA18CA PO (22:43)
[2020-07-25] MEDS ORDERED: ALPR0.5T3 (22:43)
[2020-07-25] MEDS ORDERED: HYDR-3363 (22:43)
[2020-07-26] MEDS ORDERED: NS 1,000 ML IV ONE (00:30)
[2020-07-26 00:45] LABS: BASO % 0.2 % (0.0-1.0); EOS # 0.1 10^3/uL (0.0-0.5); HEMATOCRIT 39.8 % (36.0-47.0); LYMPH # 2.5 10^3/uL (1.5-5.0); LYMPH % 30.2 % (24.0-44.0); MEAN CORPUSCULAR HEMOGLOBIN 28.9 pg (27.0-33.0); MEAN CORPUSCULAR HGB CONC 32.7 g/dl (32.0-36.5); MEAN CORPUSCULAR VOLUME 88.4 fl (80.0-96.0); MONO # 0.8 10^3/uL (0.0-0.8); MONO % 9.7 % (0.0-5.0); NEUTROPHILS # 4.8 10^3/uL (1.5-8.5); NEUTROPHILS % 58.7 % (36.0-66.0); PLATELET COUNT, AUTOMATED 320 10^3/uL (150-450); WHITE BLOOD COUNT 8.1 10^3/uL (4.0-10.0)
[2020-07-26 01:20] LABS: ALBUMIN 3.8 GM/DL (3.2-5.2); BILIRUBIN,DIRECT 0.1 MG/DL (0.0-0.2); BILIRUBIN,TOTAL 0.2 MG/DL (0.2-1.0); FREE THYROXINE INDEX 2.9 % (1.3-4.8); THYROID STIMULATING HORMONE 1.32 uIU/ML (0.358-3.740); THYROXINE (T4) 8.5 UG/DL (4.5-12.0); TOTAL PROTEIN 6.9 GM/DL (6.4-8.2)
[2020-07-26] MEDS ORDERED: METOCLOPRAMIDE INJ 10MG/2ML VIAL (J2765 PER 1) IV ONE (01:30)
[2020-07-26] MEDS ORDERED: KETOROLAC 30 MG/ML 1ML VIAL IV ONE (01:30)
--- NOTE | 2020-07-26 02:05 | REPVR ---
PROCEDURE INFORMATION: Exam: CT Head Without Contrast Exam date and time: 07/26/2020 1:46 AM Age: 34 years old Clinical indication: Pain; Headache; Additional info: Dizziness TECHNIQUE: Imaging protocol: Computed tomography of the head without contrast. Radiation optimization: All CT scans at this facility use at least one of these dose optimization techniques: automated exposure control; mA and/or kV adjustment per patient size (includes targeted exams where dose is matched to clinical indication); or iterative reconstruction. COMPARISON: MRI-Brain W/O FOLL BY WITH 07/11/2018 6:11 PM FINDINGS: Brain: Normal. No hemorrhage. Unremarkable white matter. No mass effect. Cerebral ventricles: No ventriculomegaly. Bones/joints: Unremarkable. No acute fracture. Paranasal sinuses: Visualized sinuses are unremarkable. No fluid levels. Mastoid air cells: Visualized mastoid air cells are well aerated. Soft tissues: Unremarkable. IMPRESSION: No acute intracranial abnormality. Electronically signed by: Ismael Bustamante On 07/26/2020 02:05:23 AM
[2020-07-26 02:36] VITALS: BP 119/74
--- NOTE | 2020-07-26 05:52 | ECGEPIP ---
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
== END 2020-07-26 02:37 | disposition home or self-care (01) ==
LOC: M ED 22:30
DX: R51.9 Headache, unspecified (principal); R07.89 Other chest pain; R10.9 Unspecified abdominal pain; R42 Dizziness and giddiness; I49.3 Ventricular premature depolarization; M48.00 Spinal stenosis, site unspecified; K21.9 Gastro-esophageal reflux disease without esophagitis; F90.9 Attention-deficit hyperactivity disorder, unspecified type; Z91.048 Other nonmedicinal substance allergy status; Z88.6 Allergy status to analgesic agent; Z88.5 Allergy status to narcotic agent; Z91.040 Latex allergy status; Z79.899 Other long term (current) drug therapy
CPT/HCPCS: 70450; 80047; 80076; 81001; 83690; 84436; 84443; 84479; 84702; 85025; 93005; 96361; 96374; 96375; 99284; J1885; J2765

== ENCOUNTER → 2020-08-10 | Outpatient (REF) | payer OTHER ==
[~2020-08-10] MED LIST changes: +ALPR0.5T3; -BUPR150T3; +BUPR150T4; +HYDR-3363; +STRA18CA PO
[2020-08-11 14:56] LABS: CHLAMYDIA DNA AMPLIFICATION NEGATIVE (NEGATIVE); GC DNA AMPLIFICATION NEGATIVE (NEGATIVE)
== END ==
LOC: M SFHCWAGY 09:41
PROVIDERS: ATTEND Nurse Practitioner Family
DX: Z11.3 Encounter for screening for infections with a predominantly sexual mode of transmission (principal)

== ENCOUNTER 2020-09-21 23:35 | Emergency (ER) | payer OTHER ==
[~2020-09-21] VITALS: Ht 170.2 cm; Wt 76.3 kg
[~2020-09-21 23:35] MED LIST changes: +METH-1164; -METH1TAB40
--- OUTSIDE RECORDS SUMMARY | 2020-09-21 23:42 | CCD ---
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 Role Phone Monica Muse Unavailable PROBLEMS Type Condition ICD9-CM Code [id number] Code Onset Dates Condition S tatus SNOMED Code Notes Problem Obesity E66.9 Active 018607711 Problem Morbid obesity due to excess calories E66.01 Ac tive 182078782 Problem Amenorrhea N91.2 Active 08419234 Problem Abdominal pain R10.9 Active 40110628 Problem Abdominal adhesions K66.0 Active 70643065 Problem History of PCOS Z87.42 Active 959191487 Problem Endometriosis N80.9 Active 700410695 ALLERGIES Allergen (clinical drug ingredient) Drug/Non Drug Allergy do cumented on EMR Reaction Allergy Type Onset Date Status acetaminophen / oxycodone Percocet([facility] Code:[address]-46) Unknown Drug Allergy Active Adhesive Bandages blisters/rash Drug Allergy Ac tive tramadol Tramadol HCl(ND Code:[address]-57) Unknown Drug Aller gy Active gadolinium severe pain Non Drug Allergy Active metal rash/swelling Non Drug Allergy Activ e Latex (for allergy use only) rash/breathing Drug Allergy Active ENCOUNTERS from 1985 to 2020-08-17 Encounter Location Date Provider Diagnosis [facility] [address] [place] [phone] Jul, Monica Almaz Encounter for screen ing for infections with a predominantly sexual mode of transmission Z11.3 and Dysuria R30.0 IMMUNIZATIONS No Information SOCIAL HISTORY Tobacco Use: Social History Observation Description Date Details (start date - stop date) Former Smoker Sex Assigned At : Social History Observation Description Sex Assigned At Unknown Language: Question Answer Notes Languages spoken: Bengali Presybeterian: Question Answer Notes Presybeterian No advent beliefs that would impact health care. Domestic Violence: Question Answer Notes Status: Single No history of abuse Sexual Hx: Question Answer Notes Had sex in the last 12 months (vaginal, oral, or anal)? Yes LMP: May 2019 Have you ever had an STD? Yes with Men only Use protection? No Chlamydia? Yes Alcohol Screening: Question Answer Notes Did you have a drink containing alcohol in the past year? Ye s Points 2 Interpretation Negative How often did you have six or more drinks on one occas ion in the past year? Never (0 points) How many drinks did you have on a typica l day when you were drinking in the past year? 3 or 4 (1 point) How often did you have a drink containing alcohol in t he past year? Monthly or less (1 point) BMI Care Goal Follow-Up Question Answer Notes Above Normal BMI Follow-Up Giving encouragement to exercise Tobacco Use: Question Answer Notes Are you a: former smoker Additional Findings: Tobacco User Trivial cigarette sm oker (less than one cigarette/day) Smoking Cessation Information Given 02/04/2016 How long has it been since you last smoked? 6-12 months REASON FOR REFERRAL No Information VITAL SIGNS Weight 163 lbs Jul, Weight-kg 73.94 kg Jul, Height 67 in Jul, BMI 25.53 kg/m2 Jul, Blood pressure systolic 113 mm Hg Jul, Blood pressure diastolic 80 mm Hg Jul, MEDICATIONS Medication SIG (Take, Route, Frequency, Duration) Notes Start Da te End Date Status Phentermine HCl 37.5 MG 1 capsule Orally Once a day for 30 days Apr, Not-Taking Cyclobenzaprine HCl 10 MG 1 tablet at bedtime as needed Orally PRN Unknown Alprazolam 0.5 MG 1 tablet Orally Daily PRN Unknown Amoxicillin 500 MG 1 tablet Orally every 8 hrs for 10 day(s) Feb, Not-Taking Atomoxetine HCl 10 MG as directed Orally Unknown Phentermine HCl 37.5 MG 1 capsule Orally Once a day for 30 days Aug, Not-Taking Zyrtec Allergy 10 MG 1 tablet Orally Once a day for 30 day(s) May, Active Multivital Unknown Duloxetine HCl 60 MG 1 capsule Orally Once a day for 30 day(s) Active Percocet 7.5-325 MG 1 tablet as needed Orally every 6 hrs Not-Taking Methocarbamol 500 MG 1 tablet Orally bid PRN Unknown Tramadol HCl 50 MG as directed Orally Not-Taking Provera 10 MG 1 tablet with food Orally Once a day for 10 day (s) Aug, Not-Taking Clonidine HCl 0.1 MG 1 tablet Orally Once a day PRN Unknown Provera 10 MG 1 tablet with food Orally Once a day for 10 day(s) Apr, Not-Taking PROCEDURES No Information RESULTS Component Value Reference Range Urinalysis, no micro Reviewed date:08/10/2020 16:24:00 Interpretation:Normal Performing Lab:[facility], ,[place] [address] Spec gravity 1.010 1.002 - 1.035 pH 8 5.0 - 9.0 Leukocyte trace Negative - Nitrate neg Negative - Protein neg Negative - mg/dl Glucose normal Negative - mg/dl Ketones neg Negative - mg/dl Urobili normal Normal - mg/dl Bilirubin neg Negative - Blood neg Negative - Internal QC Acceptable (Y/N) REASON FOR VISIT STD CHECK MEDICAL (GENERAL) HISTORY Type Description Date Medical History reports history of PCOS diag nosed as an adolescent, though labs in 2009 ([employer]) do not suggest Medical History reports endometriosis but [place] paroscopy by Dr. Somers (12/2013) shows "no evidence of endometriosis" Medical History 10 year cardiovascular risk calculated at 3.3% (01/2014) -- low risk Surgical History removal of adhesions, 01/16/2014 Surgical History laparascopic cholecystectomy 05/2006 Surgical History appendectomy 01/2005 Surgical History ORIF left ankle 08/1999 Surgical History ectopic 06/30/2016 Surgical History Left elbow radial head removed 2005 Surgical History left hand repair 2019 Hospitalization History cholecystitis and lap justa 05/2006 Hospitalization History appendectomy 01/2005 Hospitalization History readmitted with abscess post appende ctomy 01/2005 Hospitalization History ankle fracture 08/1999 Goals Section No Information Health Concerns No Information MEDICAL EQUIPMENT No Information MENTAL STATUS No Information FUNCTIONAL STATUS No Information ASSESSMENTS Encounter Date Diagnosis Assessment Notes Treatment Notes Treatm ent Clinical Notes Jul, Encounter for screening for infections with a predominantly sexual mode of transmission (ICD-10 - Z11.3) Reassured normal examurine appears very clear on chem 10 not cloudy or odiferous Jul, Dysuria (ICD-10 - R30.0) PLAN OF TREATMENT Treatment Notes Assessment Notes Clinical Notes Encounter for screening for infections w ith a predominantly sexual mode of transmission Reassured normal examurine a ppears very clear on chem 10 not cloudy or odiferous Next Appt Details annual Reason: Insurance Providers Payer Name Payer Address Payer Phone Insured Name Patient Relati onship to Insured Coverage Start Date Coverage End Date [facility] [employer] [facility] [address] [facility] [id number] DREA PRYOR self
--- OUTSIDE RECORDS SUMMARY | 2020-09-21 23:43 | CCD ---
Author Author [facility] Organization [facility] Address Unknown Phone Unavailable Support Name Relationship Address Phone GENA PENNINGTON Next Of Kin [address] [place] [address] Eladia Man Next Of Kin [address] [place] [address] Cami Rueda Next Of Kin [address] [place], [place] [id number] Lorraine Dasilva MD Next Of [address] [id number] [place] [place] [address] ARTURO ESPAÑA Next Of Kin [address] [place] [address] [place] [address] CONVERGYS Next Of Kin [address] [place] [address] STREAM Next Of Kin [address] [place] [address] RCIO Next Of Kin [address] [address] [place] [address] UNEMPLOYED Next Of Kin [address] [place] [address] NO REG CNTR FOR INDEP LIVING Next Of Kin [address] [place] [address] [place] [address] UNK SSV* Next Of Kin [address] [place] [address] SKH* Next Of Kin [address] [place] [address] WHISPERING PATTY [place] [address] UN UE Next Of Kin Unknown Unavailable SELF EMPLOYED Next Of Kin [address] [place] [address] [place] CEREBRAL PALSY Next Of Kin Unknown Unavaila ble Lincoln PRYOR Next Of Kin [address] [facility] [address] [place] [address] SMC* Next Of Kin [address] [place] [address] KYA MARTE Next Of Kin [address] [place] [address] LESLEY PRYOR Next Of Kin [address] [place] [address] LESLEY PRYOR [facility] [address] [place] [address] Unavailable Care Team Providers Care Machine Accountant Name Role Phone Matilda Allen Unavailable Unavailable Tiffany, Jose Carlos MD Unavailable Unavailable Tiffany, Jose Carlos Unavailable Unavailable Tiffany, Jose Carlos Unavailable Unavailable Tiffany, Jose Carlos Unavailable Unavailable Tiffany, Jose Carlos Unavailable Unavailable Tiffany, Jose Carlos Unavailable Unavailable Tiffany, Jose Carlos Unavailable Unavailable Tiffany, Jose Carlos Unavailable Unavailable Tiffany, Jose Carlos Unavailable Unavailable Tiffany, Jose Carlos Unavailable Unavailable Tiffany, Jose Carlos Unavailable Unavailable Tiffany, Jose Carlos Unavailable Unavailable Tiffany, Jose Carlos Unavailable Unavailable Tiffany, Jose Carlos Unavailable Unavailable Tiffany, Jose Carlos Unavailable Unavailable Tiffany, Jose Carlos Unavailable Unavailable Tiffany, Jose Carlos Unavailable Unavailable Tiffany, Jose Carlos Unavailable Unavailable Tiffany, Jose Carlos Unavailable Unavailable Tiffany, Jose Carlos Unavailable Unavailable Tiffany, Jose Carlos Unavailable Unavailable Tiffany, Jose Carlos MD Unavailable Unavailable Tiffany, Jose Carlos MD Unavailable Unavailable Tiffany, Jose Carlos Unavailable Unavailable Tiffany, Jose Carlos MD Unavailable Unavailable Tiffany, Jose Carlos Unavailable Unavailable Tiffany, Jose Carlos Unavailable Unavailable Tiffany, Jose Carlos Unavailable Unavailable Tiffany, Jose Carlos Unavailable Unavailable Tiffany, Jose Carlos Unavailable Unavailable Tiffany, Jose Carlos Unavailable Unavailable Tiffany, Jose Carlos Unavailable Unavailable Tiffany, Jose Carlos Unavailable Unavailable Tiffany, Jose Carlos Unavailable Unavailable Tiffany, Jose Carlos Unavailable Unavailable Tiffany, Jose Carlos Unavailable Unavailable Tiffany, Jose Carlos Unavailable Unavailable Tiffany, Jose Carlos MD Unavailable Unavailable Tiffany, Jose Carlos MD Unavailable Unavailable Tiffany, Jose Carlos MD Unavailable Unavailable Tiffany, Jose Carlos MD Unavailable Unavailable Tiffany, Jose Carlos MD Unavailable Unavailable Tiffany, Jose Carlos MD Unavailable Unavailable Tiffany, Jose Carlos MD Unavailable Unavailable Tiffany, Jose Carlos MD Unavailable Unavailable Tiffany, Jose Carlos MD Unavailable Unavailable Tiffany, Jose Carlos MD Unavailable Unavailable Tiffany, Jose Carlos MD Unavailable Unavailable Tiffany, Jose Carlos MD Unavailable Unavailable Tiffany, Jose Carlos MD Unavailable Unavailable Tiffany, Jose Carlos MD Unavailable Unavailable Tiffany, Jose Carlos MD Unavailable Unavailable Tiffany, Jose Carlos MD Unavailable Unavailable Tiffany, Jose Carlos MD Unavailable Unavailable Tiffany, Jose Carlos MD Unavailable Unavailable Tiffany, Jose Carlos MD Unavailable Unavailable Tiffany, Jose Carlos MD Unavailable Unavailable Tiffany, Jose Carlos MD Unavailable Unavailable Tiffany, Jose Carlos MD Unavailable Unavailable Tiffany, Jose Carlos MD Unavailable Unavailable Tiffany, Jose Carlos MD Unavailable Unavailable Tiffany, Jose Carlos MD Unavailable Unavailable Kervin Graves Unavailable [phone] Kervin Graves Unavailable [phone] Alex Graveson Unavailable [phone] Ely, Kervin Unavailable [phone] Kervin Graves Unavailable [phone] Scozzari, K Demetra PA Unavailable Unavailable Scozzari, K Demetra PA Unavailable Unavailable Scozzari, K Demetra PA Unavailable Unavailable Scozzari, K Demetra PA Unavailable Unavailable Scozzari, K Demetra PA Unavailable Unavailable Scozzari, K Demetra PA Unavailable Unavailable Scozzari, K Demetra PA Unavailable Unavailable Scozzari, K Demetra PA Unavailable Unavailable Scozzari, K Demetra PA Unavailable Unavailable Scozzari, K Demetra PA Unavailable Unavailable Scozzari, K Demetra PA Unavailable Unavailable Scozzari, K Demetra PA Unavailable Unavailable Scozzari, K Demetra PA Unavailable Unavailable Scozzari, K Demetra PA Unavailable Unavailable Scozzari, K Demetra PA Unavailable Unavailable Scozzari, K Demetra PA Unavailable Unavailable Scozzari, K Demetra PA Unavailable Unavailable Scozzari, K Demetra PA Unavailable Unavailable Scozzari, K Demetra PA Unavailable Unavailable Scozzari, K Demetra PA Unavailable Unavailable Scozzari, K Demetra PA Unavailable Unavailable Scozzari, K Demetra PA Unavailable Unavailable Scozzari, K Demetra PA Unavailable Unavailable Scozzari, K Demetra PA Unavailable Unavailable Scozzari, K Demetra PA Unavailable Unavailable Scozzari, K Demetra PA Unavailable Unavailable Scozzari, K Demetra PA Unavailable Unavailable Scozzari, K Demetra PA Unavailable Unavailable Scozzari, K Demetra PA Unavailable Unavailable Scozzari, K Demetra PA Unavailable Unavailable Scozzari, K Demetra PA Unavailable Unavailable Scozzari, K Demetra PA Unavailable Unavailable Scozzari, K Demetra PA Unavailable Unavailable Scozzari, K Demetra PA Unavailable Unavailable Scozzari, K Demetra PA Unavailable Unavailable Scozzari, K Demetra PA Unavailable Unavailable Scozzari, K Demetra PA Unavailable Unavailable Scozzari, K Demetra PA Unavailable Unavailable Scozzari, K Demetra PA Unavailable Unavailable Scozzari, K Demetra PA Unavailable Unavailable Scozzari, K Demetra PA Unavailable Unavailable Scozzari, K Demetra PA Unavailable Unavailable Scozzari, K Demetra PA Unavailable Unavailable Scozzari, K Demetra PA Unavailable Unavailable Scozzari, K Demetra PA Unavailable Unavailable Scozzari, K Demetra PA Unavailable Unavailable Fish, Rick Martines MD Unavailable Unavailable Fish, Rick Martines MD Unavailable Unavailable Fish, Rick Martines MD Unavailable Unavailable Fish, Rick Martines MD Unavailable Unavailable Fish, Rick Martines MD Unavailable Unavailable Fish, Rick Martines MD Unavailable Unavailable Fish, Rick Martines MD Unavailable Unavailable Fish, Rick Martines MD Unavailable Unavailable Fish, Rick Martines MD Unavailable Unavailable Fish, Rick Martines MD Unavailable Unavailable Fish, Rick Martines MD Unavailable Unavailable Fish, Rick Martines MD Unavailable Unavailable Fish, Rick Martines MD Unavailable Unavailable Fish, Rick Martines MD Unavailable Unavailable Fish, Rick Martines MD Unavailable Unavailable Fish, Rick Martines MD Unavailable Unavailable Fish, Rick Martines MD Unavailable Unavailable Fish, Rick Martines MD Unavailable Unavailable Fish, Rick Martines MD Unavailable Unavailable Fish, Rick Martines MD Unavailable Unavailable Fish, Rick Martines MD Unavailable Unavailable Fish, Rick Martines MD Unavailable Unavailable Fish, Rick Martines MD Unavailable Unavailable Fish, Rick Martines MD Unavailable Unavailable Fish, Rick Martines MD Unavailable Unavailable Fish, Rick Martines MD Unavailable Unavailable Fish, Rick Martines MD Unavailable Unavailable Fish, Rick Martines MD Unavailable Unavailable Fish, Rick Martines MD Unavailable Unavailable Fish, Rick Martines MD Unavailable Unavailable Fish, Rick Martines MD Unavailable Unavailable Fish, Rick Martines MD Unavailable Unavailable Fish, B Conrad LEE Unavailable Unavailable Fish, B Conrad LEE Unavailable Unavailable Fish, B Conrad LEE Unavailable Unavailable Fish, B Conrad LEE Unavailable Unavailable Fish, B Conrad LEE Unavailable Unavailable Fish, B Conrad LEE Unavailable Unavailable Fish, B Conrad LEE Unavailable Unavailable Fish, B Conrad LEE Unavailable Unavailable Fish, B Conrad LEE Unavailable Unavailable Fish, B Conrad LEE Unavailable Unavailable Fish, B Conrad LEE Unavailable Unavailable Fish, B Conrad LEE Unavailable Unavailable Fish, B Conrad LEE Unavailable Unavailable Fish, B Conrad LEE Unavailable Unavailable Fish, B Conrad LEE Unavailable Unavailable Fish, B Conrad LEE Unavailable Unavailable Fish, B Conrad LEE Unavailable Unavailable Fish, B Conrad LEE Unavailable Unavailable Fish, B Conrad LEE Unavailable Unavailable Fish, B Conrad LEE Unavailable Unavailable Fish, B Conrad LEE Unavailable Unavailable Jefferson, Maria Luz EXCHANGE TELLER Unavailable Unavailable Jefferson, Maria Luz EXCHANGE TELLER Unavailable Unavailable Jefferson, Maria Luz EXCHANGE TELLER Unavailable Unavailable Jefferson, Maria Luz EXCHANGE TELLER Unavailable Unavailable Jefferson, Maria Luz EXCHANGE TELLER Unavailable Unavailable Jefferson, Maria Luz EXCHANGE TELLER Unavailable Unavailable Jefferson, Maria Luz EXCHANGE TELLER Unavailable Unavailable Jefferson, Maria Luz EXCHANGE TELLER Unavailable Unavailable Jefferson, Maria Luz EXCHANGE TELLER Unavailable Unavailable Jefferson, Maria Luz EXCHANGE TELLER Unavailable Unavailable Jefferson, Maria Luz EXCHANGE TELLER Unavailable Unavailable Fish, B Conrad LEE Unavailable Unavailable Fish, B Conrad LEE Unavailable Unavailable Fish, B Conrad LEE Unavailable Unavailable Fish, B Conrad LEE Unavailable Unavailable Fish, B Conrad LEE Unavailable Unavailable Fish, B Conrad LEE Unavailable Unavailable Fish, B Conrad LEE Unavailable Unavailable Fish, B Conrad LEE Unavailable Unavailable Fish, B Conrda LEE Unavailable Unavailable Fish, B Conrad LEE Unavailable Unavailable Fish, B Conrad LEE Unavailable Unavailable Fish, B Conrad LEE Unavailable Unavailable Fish, B Conrad LEE Unavailable Unavailable Fish, B Conrad LEE Unavailable Unavailable Fish, B Conrad LEE Unavailable Unavailable Fish, B Conrad LEE Unavailable Unavailable Fish, B Conrad LEE Unavailable Unavailable Fish, B Conrad LEE Unavailable Unavailable Fish, B Conrad LEE Unavailable Unavailable Fish, B Conrad LEE Unavailable Unavailable Fish, B Conrad LEE Unavailable Unavailable Fish, B Conrad LEE Unavailable Unavailable Fish, B Conrad LEE Unavailable Unavailable Fish, B Conrad LEE Unavailable Unavailable Fish, B Conrad LEE Unavailable Unavailable Fish, B Conrad LEE Unavailable Unavailable Fish, B Conrad LEE Unavailable Unavailable Fish, B Conrad LEE Unavailable Unavailable Fish, B Conrad LEE Unavailable Unavailable Fish, B Conrad LEE Unavailable Unavailable Fish, B Conrad LEE Unavailable Unavailable Fish, B Conrad LEE Unavailable Unavailable Fish, B Conrad LEE Unavailable Unavailable Fish, B Conrad LEE Unavailable Unavailable Fish, B Conrad LEE Unavailable Unavailable Fish, B Conrad LEE Unavailable Unavailable Fish, B Conrad LEE Unavailable Unavailable Fish, B Conrad LEE Unavailable Unavailable Fish, B Conrad LEE Unavailable Unavailable Fish, B Conrad LEE Unavailable Unavailable Fish, B Conrad LEE Unavailable Unavailable Fish, B Conrad LEE Unavailable Unavailable Fish, B Conrad LEE Unavailable Unavailable Fish, B Conrad LEE Unavailable Unavailable Fish, B Conrad LEE Unavailable Unavailable Fish, B Conrad LEE Unavailable Unavailable Fish, B Conrad LEE Unavailable Unavailable Fish, B Conrad LEE Unavailable Unavailable Fish, B Conrad LEE Unavailable Unavailable Fish, B Conrad LEE Unavailable Unavailable Fish, B Conrad LEE Unavailable Unavailable Fish, B Conrad LEE Unavailable Unavailable Fish, B Conrad LEE Unavailable Unavailable TURRIN, MARLON Unavailable Unavailable TURRIN, MARLON Unavailable Unavailable TURRIN, MARLON Unavailable Unavailable TURRIN, MARLON Unavailable Unavailable Gokey, Brittney JUNIOR PROJECT MANAGER Unavailable Unavailable Gokey, Brittney JUNIOR PROJECT MANAGER Unavailable Unavailable Gokey, Brittney JUNIOR PROJECT MANAGER Unavailable Unavailable Gokey, Brittney JUNIOR PROJECT MANAGER Unavailable Unavailable Gokey, Brittney JUNIOR PROJECT MANAGER Unavailable Unavailable Gokey, Brittney JUNIOR PROJECT MANAGER Unavailable Unavailable Gokey, Brittney JUNIOR PROJECT MANAGER Unavailable Unavailable Gokey, Brittney JUNIOR PROJECT MANAGER Unavailable Unavailable Gokey, Brittney JUNIOR PROJECT MANAGER Unavailable Unavailable Gokey, Brittney JUNIOR PROJECT MANAGER Unavailable Unavailable Gokey, Brittney JUNIOR PROJECT MANAGER Unavailable Unavailable Gokey, Brittney JUNIOR PROJECT MANAGER Unavailable Unavailable Gokey, Brittney JUNIOR PROJECT MANAGER Unavailable Unavailable Gokey, Brittney JUNIOR PROJECT MANAGER Unavailable Unavailable Gokey, Brittney JUNIOR PROJECT MANAGER Unavailable Unavailable Gokey, Brittney JUNIOR PROJECT MANAGER Unavailable Unavailable Gokey, Brittney JUNIOR PROJECT MANAGER Unavailable Unavailable Gokey, Brittney JUNIOR PROJECT MANAGER Unavailable Unavailable Gokey, Brittney JUNIOR PROJECT MANAGER Unavailable Unavailable DIBBEN, S WENDY PA Unavailable Unavailable DIBBEN, S WENDY PA Unavailable Unavailable DIBBEN, S WENDY PA Unavailable Unavailable DIBBEN, S WENDY PA Unavailable Unavailable DIBBEN, S WENDY PA Unavailable Unavailable DIBBEN, S WENDY PA Unavailable Unavailable DIBBEN, S WENDY PA Unavailable Unavailable DIBBEN, S WENDY PA Unavailable Unavailable DIBBEN, S WENDY PA Unavailable Unavailable DIBBEN, S WENDY PA Unavailable Unavailable DIBBEN, S WENDY PA Unavailable Unavailable VILLA, Italia LANDERS MD Unavailable Unavailable VILLA, Italia LANDERS MD Unavailable Unavailable VILLA, Italia LANDERS MD Unavailable Unavailable VILLA, Italia LANDERS MD Unavailable Unavailable VILLA, Italia LANDERS MD Unavailable Unavailable VILLA, Italia LANDERS MD Unavailable Unavailable VILLA, Italia LANDERS MD Unavailable Unavailable VILLA, Italia LANDERS MD Unavailable Unavailable VILLA, Italia LANDERS MD Unavailable Unavailable VILLA, Italia LANDERS MD Unavailable Unavailable VILLA, Italia LANDERS MD Unavailable Unavailable VILLA, Italia LANDERS MD Unavailable Unavailable VILLA, Italia LANDERS MD Unavailable Unavailable VILLA, Italia LANDERS MD Unavailable Unavailable VILLA, Italia LANDERS MD Unavailable Unavailable VILLA, Italia LANDERS MD Unavailable Unavailable VILLA, Italia LANDERS MD Unavailable Unavailable VILLA, Italia LANDERS MD Unavailable Unavailable VILLA, Italia LANDERS MD Unavailable Unavailable VILLA, Italia LANDERS MD Unavailable Unavailable VILLA, Italia LANDERS MD Unavailable Unavailable VILLA, Italia LANDERS MD Unavailable Unavailable VILLA, Italia LANDERS MD Unavailable Unavailable VILLA, Italia LANDERS MD Unavailable Unavailable VILLA, Italia LANDERS MD Unavailable Unavailable VILLA, Italia LANDERS MD Unavailable Unavailable VILLA, Italia LANDERS MD Unavailable Unavailable VILLA, Italia LANDERS MD Unavailable Unavailable VILLA, Italia LANDERS MD Unavailable Unavailable VILLA, Italia LANDERS MD Unavailable Unavailable VILLA, Italia LANDERS MD Unavailable Unavailable VILLA, Italia LANDERS MD Unavailable Unavailable VILLA, Italia LANDERS MD Unavailable Unavailable VILLA, Italia LANDERS MD Unavailable Unavailable VILLA, Italia LANDERS MD Unavailable Unavailable VILLA, Italia LANDERS MD Unavailable Unavailable VILLA, Italia LANDERS MD Unavailable Unavailable VILLA, Italia LANDERS MD Unavailable Unavailable VILLA, Italia LANDERS MD Unavailable Unavailable VILLA, Italia LANDERS MD Unavailable Unavailable VILLA, Italia LANDERS MD Unavailable Unavailable VILLA, Italia LANDERS MD Unavailable Unavailable VILLA, Italia LANDERS MD Unavailable Unavailable VILLA, Italia LANDERS MD Unavailable Unavailable VILLA, Italia LANDERS MD Unavailable Unavailable VILLA, Italia LANDERS MD Unavailable Unavailable VILLA, Italia LANDERS MD Unavailable Unavailable VILLA, Italia LANDERS MD Unavailable Unavailable VILLA, Italia LANDERS MD Unavailable Unavailable VILLA, Italia LANDERS MD Unavailable Unavailable VILLA, Italia LANDERS MD Unavailable Unavailable VILLA, Italia LANDERS MD Unavailable Unavailable VILLA, Italia LANDERS MD Unavailable Unavailable VILLA, Italia LANDERS MD Unavailable Unavailable VILLA, Italia LANDERS MD Unavailable Unavailable VILLA, Italia LANDERS MD Unavailable Unavailable VILLA, Italia LANDERS MD Unavailable Unavailable VILLA, Italia LANDERS MD Unavailable Unavailable VILLA, Italia LANDERS MD Unavailable Unavailable VILLA, Italia LANDERS MD Unavailable Unavailable VILLA, Italia LANDERS MD Unavailable Unavailable VILLA, Italia LANEDRS MD Unavailable Unavailable VILLA, Italia LANDERS MD Unavailable Unavailable VILLA, Italia LANDERS MD Unavailable Unavailable VILLA, Italia LANDERS MD Unavailable Unavailable VILLA, Italia LANDERS MD Unavailable Unavailable VILLA, Italia LANDERS MD Unavailable Unavailable VILLA, Italia LANDERS MD Unavailable Unavailable VILLA, Italia LANDERS MD Unavailable Unavailable VILLA, Italia LANDERS MD Unavailable Unavailable VILLA, Italia LANDERS MD Unavailable Unavailable VILLA, Italia LANDERS MD Unavailable Unavailable VILLA, Italia LANDERS MD Unavailable Unavailable VILLA, Italia LANDERS MD Unavailable Unavailable VILLA, Italia LANDERS MD Unavailable Unavailable VILLA, Italia LANDERS MD Unavailable Unavailable VILLA, Italia LANDERS MD Unavailable Unavailable VILLA, Italia LANDERS MD Unavailable Unavailable VILLA, Italia LANDERS MD Unavailable Unavailable VILLA, Italia LANDERS MD Unavailable Unavailable VILLA, Italia LANDERS MD Unavailable Unavailable VILLA, Italia LANDERS MD Unavailable Unavailable VILLA, Italia LANDERS MD Unavailable Unavailable VILLA, Italia LANDERS MD Unavailable Unavailable VILLA, Italia LANDERS MD Unavailable Unavailable VILLA, Italia LANDERS MD Unavailable Unavailable VILLA, Italia LANDERS MD Unavailable Unavailable VILLA, Italia LANDERS MD Unavailable Unavailable VILLA, Italia LANDERS MD Unavailable Unavailable VILLA, Italia LANDERS MD Unavailable Unavailable VILLA, Italia LANDERS MD Unavailable Unavailable VILLA, Italia LANDERS MD Unavailable Unavailable VILLA, Italia LANDERS MD Unavailable Unavailable VILLA, Italia LANDERS MD Unavailable Unavailable VILLA, Italia LANDERS MD Unavailable Unavailable VLILA, Italia LANDERS MD Unavailable Unavailable VILLA, Italia LANDERS MD Unavailable Unavailable VILLA, Italia LANDERS MD Unavailable Unavailable VILLA, Italia LANDERS MD Unavailable Unavailable VILLA, Italia LANDERS MD Unavailable Unavailable VILLA, Italia LANDERS MD Unavailable Unavailable VILLA, Italia LANDERS MD Unavailable Unavailable VILLA, Italia LANDERS MD Unavailable Unavailable VILLA, Italia LANDERS MD Unavailable Unavailable VILLA, Italia LANDERS MD Unavailable Unavailable VILLA, Italia LANDERS MD Unavailable Unavailable VILLA, Italia LANDERS MD Unavailable Unavailable VILLA, Italia LANDERS MD Unavailable Unavailable VILLA, Italia LANDERS MD Unavailable Unavailable VILLA, Italia LANDERS MD Unavailable Unavailable VILLA, Italia LANDERS MD Unavailable Unavailable VILLA, Italia LANDERS MD Unavailable Unavailable VILLA, Italia LANDERS MD Unavailable Unavailable VILLA, Italia LANDERS MD Unavailable Unavailable VILLA, Italia LANDERS MD Unavailable Unavailable ROSAMARIA, Sylvia THOMAS MD Unavailable Unavailable ROSAMARIA, Sylvia THOMAS MD Unavailable Unavailable ROSAMARIA, Sylvia THOMAS MD Unavailable Unavailable ROSAMARIA, Sylvia THOMAS MD Unavailable Unavailable ROSAMARIA, Sylvia THOMAS MD Unavailable Unavailable ROSAMARIA, Sylvia THOMAS MD Unavailable Unavailable ROSAMARIA, Sylvia THOMAS MD Unavailable Unavailable ROSAMARIA, Sylvia THOMAS MD Unavailable Unavailable ROSAMARIA, Sylvia THOMAS MD Unavailable Unavailable ROSAMARIA, Sylvia THOMAS MD Unavailable Unavailable ROSAMARIA, Sylvia THOMAS MD Unavailable Unavailable ROSAMARIA, Sylvia THOMAS MD Unavailable Unavailable ROSAMARIA, Sylvia THOMAS MD Unavailable Unavailable ROSAMARIA, Sylvia THOMAS MD Unavailable Unavailable ROSAMARIA, Sylvia THOMAS MD Unavailable Unavailable ROSAMARIA, Sylvia THOMAS MD Unavailable Unavailable ROSAMARIA, Sylvia THOMAS MD Unavailable Unavailable ROSAMARIA, Sylvia THOMAS MD Unavailable Unavailable ROSAMARIA, Sylvia THOMAS MD Unavailable Unavailable ROSAMARIA, Sylvia THOMAS MD Unavailable Unavailable ROSAMARIA, Sylvia THOMAS MD Unavailable Unavailable ROSAMARIA, E GERMAN LEE Unavailable Unavailable ROSAMARIA, Sylvia THOMAS MD Unavailable Unavailable ROSAMARIA, E GERMAN LEE Unavailable Unavailable ROSAMARIA, Sylvia THOMAS MD Unavailable Unavailable ROSAMARIA, Sylvia THOMAS MD Unavailable Unavailable ROSAMARIA, Sylvia THOMAS MD Unavailable Unavailable ROSAMARIA, Sylvia THOMAS MD Unavailable Unavailable ROSAMARIA, Sylvia THOMAS MD Unavailable Unavailable ROSAMARIA, Sylvia THOMAS MD Unavailable Unavailable ROSAMARIA, Sylvia THOMAS MD Unavailable Unavailable ROSAMARIA, Sylvia THOMAS MD Unavailable Unavailable ROSAMARIA, Sylvia THOMAS MD Unavailable Unavailable ROSAMARIA, Sylvia THOMAS MD Unavailable Unavailable ROSAMARIA, Sylvia THOMAS MD Unavailable Unavailable ROSAMARIA, Sylvia THOMAS MD Unavailable Unavailable ROSAMARIA, Sylvia THOMAS MD Unavailable Unavailable ROSAMARIA, Sylvia THOMAS MD Unavailable Unavailable ROSAMARIA, Sylvia THOMAS MD Unavailable Unavailable ROSAMARIA, Sylvia THOMAS MD Unavailable Unavailable ROSAMARIA, Sylvia THOMAS MD Unavailable Unavailable ROSAMARIA, Sylvia THOMAS MD Unavailable Unavailable ROSAMARIA, Sylvia THOMAS MD Unavailable Unavailable ROSAMARIA, Sylvia THOMAS MD Unavailable Unavailable ROSAMARIA, Sylvia THOMAS MD Unavailable Unavailable ROSAMARIA, Sylvia THOMAS MD Unavailable Unavailable ROSAMARIA, Sylvia THOMAS MD Unavailable Unavailable ROSAMARIA, Sylvia THOMAS MD Unavailable Unavailable ROSAMARIA, Sylvia THOMAS MD Unavailable Unavailable ROSAMARIA, Sylvia THOMAS MD Unavailable Unavailable ROSAMARIA, Sylvia THOMAS MD Unavailable Unavailable ROSAMARIA, Sylvia THOMAS MD Unavailable Unavailable ROSAMARIA, Sylvia THOMAS MD Unavailable Unavailable ROSAMARIA, Sylvia THOMAS MD Unavailable Unavailable ROSAMARIA, Sylvia THOMAS MD Unavailable Unavailable ROSAMARIA, Sylvia THOAMS MD Unavailable Unavailable ROSAMARIA, Sylvia THOMAS MD Unavailable Unavailable ROSAMARIA, Sylvia THOMAS MD Unavailable Unavailable ROSAMARIA, Sylvia THOMAS MD Unavailable Unavailable ROSAMARIA, Sylvia THOMAS MD Unavailable Unavailable ROSAMARIA, Sylvia THOMAS MD Unavailable Unavailable ROSAMARIA, Sylvia THOMAS MD Unavailable Unavailable ROSAMARIA, Sylvia THOMAS MD Unavailable Unavailable ROSAMARIA, Sylvia THOMAS MD Unavailable Unavailable ROSAMARIA, Sylvia THOMAS MD Unavailable Unavailable ROSAMARIA, E GERMAN LEE Unavailable Unavailable ROSAMARIA, Sylvia THOMAS MD Unavailable Unavailable ROSAMARIA, Sylvia THOMAS MD Unavailable Unavailable ROSAMARIA, Sylvia THOMAS MD Unavailable Unavailable ROSAMARIA, Sylvia THOMAS MD Unavailable Unavailable ROSAMARIA, E GERMAN LEE Unavailable Unavailable ROSAMARIA, E GERMAN LEE Unavailable Unavailable ROSAMARIA, E GERMAN LEE Unavailable Unavailable ROSAMARIA, E GERMAN LEE Unavailable Unavailable ROSAMARIA, E GERMAN LEE Unavailable Unavailable ROSAMARIA, Sylvia THOMAS MD Unavailable Unavailable ROSAMARIA, Sylvia THOMAS MD Unavailable Unavailable ROSAMARIA, Sylvia THOMAS MD Unavailable Unavailable ROSAMARIA, Sylvia THOMAS MD Unavailable Unavailable ROSAMARIA, Sylvia THOMAS MD Unavailable Unavailable ROSAMARIA, Sylvia THOMAS MD Unavailable Unavailable ROSAMARIA, Sylvia THOMAS MD Unavailable Unavailable ROSAMARIA, Sylvia THOMAS MD Unavailable Unavailable ROSAMARIA, Sylvia THOMAS MD Unavailable Unavailable ROSAMARIA, Sylvia THOMAS MD Unavailable Unavailable ROSAMARIA, Sylvia THOMAS MD Unavailable Unavailable ROSAMARIA, Sylvia THOMAS MD Unavailable Unavailable ROSAMARIA, Sylvia THOMAS MD Unavailable Unavailable ROSAMARIA, Sylvia THOMAS MD Unavailable Unavailable ROSAMARIA, Sylvia THOMAS MD Unavailable Unavailable ROSAMARIA, Sylvia THOMAS MD Unavailable Unavailable ROSAMARIA, Sylvia THOMAS MD Unavailable Unavailable ROSAMARIA, Sylvia THOMAS MD Unavailable Unavailable ROSAMARIA, Sylvia THOMAS MD Unavailable Unavailable ROSAMARIA, Sylvia THOMAS MD Unavailable Unavailable ARACELI B YADIRA MD Unavailable Unavailable GREENKY, B YADIRA Unavailable Unavailable GREENKY B YADIRA MD Unavailable Unavailable GREENKY B YADIRA Unavailable Unavailable GREENKY, B YADIRA Unavailable Unavailable GREENKY, B YADIRA Unavailable Unavailable GREENKY, B YADIRA Unavailable Unavailable GREENKY, B YADIRA Unavailable Unavailable GREENKY, B YADIRA Unavailable Unavailable GREENKY, B YADIRA Unavailable Unavailable GREENKY, B YADIRA Unavailable Unavailable GREENKY, B YADIRA Unavailable Unavailable GREENKY, B YADIRA MD Unavailable Unavailable GREENKY, B YADIRA MD Unavailable Unavailable GREENKY, B YADIRA MD Unavailable Unavailable GREENKY, B YADIRA MD Unavailable Unavailable GREENKY, B YADIRA MD Unavailable Unavailable GREENKY, B YADIRA MD Unavailable Unavailable GREENKY, B YADIRA MD Unavailable Unavailable GREENKY, B YADIRA MD Unavailable Unavailable GREENKY, B YADIRA MD Unavailable Unavailable GREENKY, B YADIRA MD Unavailable Unavailable GREENKY, B YADIRA MD Unavailable Unavailable GREENKY, B YADIRA MD Unavailable Unavailable GREENKY, B YADIRA MD Unavailable Unavailable GREENKY, B YADIRA MD Unavailable Unavailable GREENKY, B YADIRA MD Unavailable Unavailable GREENKY, B YADIRA MD Unavailable Unavailable GREENKY, B YADIRA MD Unavailable Unavailable GREENKY, B YADIRA MD Unavailable Unavailable GREENKY, B YADIRA MD Unavailable Unavailable GREENKY, B YADIRA MD Unavailable Unavailable GREENKY, B YADIRA MD Unavailable Unavailable GREENKY, B YADIRA MD Unavailable Unavailable GREENKY, B YADIRA MD Unavailable Unavailable GREENKY, B YADIRA MD Unavailable Unavailable GREENKY, B YADIRA MD Unavailable Unavailable GREENKY, B YADIRA MD Unavailable Unavailable GREENKY, B YADIRA MD Unavailable Unavailable GREENKY, B YADIRA MD Unavailable Unavailable GREENKY, B YADIRA MD Unavailable Unavailable GREENKY, B YADIRA MD Unavailable Unavailable GREENKY, B YADIRA MD Unavailable Unavailable GREENKY, B YADIRA MD Unavailable Unavailable GREENKY, B YADIRA MD Unavailable Unavailable GREENKY, B YADIRA MD Unavailable Unavailable GREENKY, B YADIRA MD Unavailable Unavailable GREENKY, B YADIRA MD Unavailable Unavailable GREENKY, B YADIRA MD Unavailable Unavailable GREENKY, B YADIRA MD Unavailable Unavailable GREENKY, B YADIRA MD Unavailable Unavailable GREENKY, B YADIRA MD Unavailable Unavailable GREENKY, B YADIRA MD Unavailable Unavailable GREENKY, B YADIRA MD Unavailable Unavailable GREENKY, B YADIRA MD Unavailable Unavailable GREENKY, B YADIRA MD Unavailable Unavailable GREENKY, B YADIRA MD Unavailable Unavailable GREENKY, B YADIRA MD Unavailable Unavailable GREENKY, B YADIRA MD Unavailable Unavailable GREENKY, B YADIRA MD Unavailable Unavailable GREENKY, B YADIRA MD Unavailable Unavailable GREENKY, B YADIRA MD Unavailable Unavailable GREENKY, B YADIRA MD Unavailable Unavailable GREENKY, B YADIRA MD Unavailable Unavailable GREENKY, B YADIRA MD Unavailable Unavailable GREENKY, B YADIRA MD Unavailable Unavailable GREENKY, B YADIRA MD Unavailable Unavailable GREENKY, B YADIRA MD Unavailable Unavailable GREENKY, B YADIRA MD Unavailable Unavailable GREENKY, B YADIRA MD Unavailable Unavailable GREENKY, B YADIRA MD Unavailable Unavailable GREENKY, B YADIRA MD Unavailable Unavailable GREENKY, B YADIRA MD Unavailable Unavailable GREENKY, B YADIRA MD Unavailable Unavailable GREENKY, B YADIRA MD Unavailable Unavailable GREENKY, B YADIRA MD Unavailable Unavailable GREENKY, B YADIRA MD Unavailable Unavailable GREENKY, B YADIRA MD Unavailable Unavailable GREENKY, B YADIRA MD Unavailable Unavailable GREENKY, B YADIRA MD Unavailable Unavailable GREENKY, B YADIRA MD Unavailable Unavailable GREENKY, B YADIRA MD Unavailable Unavailable GREENKY, B YADIRA MD Unavailable Unavailable GREENKY, B YADIRA MD Unavailable Unavailable GREENKY, B YADIRA MD Unavailable Unavailable GREENKY, B YADIRA MD Unavailable Unavailable GREENKY, B YADIRA MD Unavailable Unavailable GREENKY, B YADIRA MD Unavailable Unavailable GREENKY, B YADIRA MD Unavailable Unavailable GREENKY, B YADIRA MD Unavailable Unavailable Eladia Jin JUNIOR PROJECT MANAGER JUNIOR PROJECT MANAGER Unavailable Unavailable Amie, Gloria Hicks MD Unavailable Unavailable Amie, Gloria Hicks MD Unavailable Unavailable Amie, Gloria Hicks MD Unavailable Unavailable Amie, Gloria Hicks MD Unavailable Unavailable Amie, Gloria Hicks MD Unavailable Unavailable Amie, Gloria Hicks MD Unavailable Unavailable Amie, Gloria Hicks MD Unavailable Unavailable Amie, Gloria Hicks MD Unavailable Unavailable Amie, Gloria Hicks MD Unavailable Unavailable Amie, Gloria Hicks MD Unavailable Unavailable Amie, Gloria Hicks MD Unavailable Unavailable Amie, Gloria Hicks MD Unavailable Unavailable NO, PCP Unavailable Unavailable Re-disclosure Warning The records that you are about to access may contain information from federally-assisted alcohol or drug abuse programs. If such information is present, then the following federally mandated warning applies: This information has been disclosed to you from records protected by federal confidentiality rules (42 CFR part 2). The federal rules prohibit you from making any further disclosure of this information unless further disclosure is expressly permitted by the written consent of the person to whom it pertains or as otherwise permitted by 42 CFR part 2. A general authorization for the release of medical or other information is NOT sufficient for this purpose. The Federal rules restrict any use of the information to criminally investigate or prosecute any alcohol or drug abuse patient.The records that you are about to access may contain highly sensitive health information, the redisclosure of which is protected by Article 27-F of the [place] State Public Health law. If you continue you may have access to information: Regarding HIV / AIDS; Provided by facilities licensed or operated by the [facility] Office of Mental Health; or Provided by the [facility] Office for People With Developmental Disabilities. If such information is present, then the following [facility] mandated warning applies: This information has been disclosed to you from confidential records which are protected by state law. State law prohibits you from making any further disclosure of this information without the specific written consent of the person to whom it pertains, or as otherwise permitted by law. Any unauthorized further disclosure in violation of state law may result in a fine or senior living sentence or both. A general authorization for the release of medical or other information is NOT sufficient authorization for further disc losure. Allergies and Adverse Reactions Type Description Substance Reaction Status Data Source(s ) Latex (for allergy use only) Latex (for allergy use only) La debbi (for allergy use only) rash/breathing Active eCW1 ([facility]) Drug Allergy Drug Allergy NKDA MEDENT (No [facility] ) Family History Family Member Name Family Member Gender Family Member Status Date o f Status Description Data Source(s) Unknown Unknown Problem MEDENT ([facility] ) Encounters Encounter Providers Location Date Indications Data Source(s ) Recurring Patient Attender: LEESA VILLA MDReferrer: Conrad nelson MD 08/30/2020 10:32:03 AM EST [facility] Outpatient Attender: Kervin Graves 08/20 04:44:57 PM EST - 08/20/2020 06:40:52 PM EST [facility]ap ([facility] ) Outpatient Attender: Demetra Kowalski PAReferrer: Brittney Singh JUNIOR PROJECT MANAGER 08/16/2020 08:48:39 AM EST [facility] [place] [address] [address] 08/10/2020 12:00:00 AM EST eCW1 ([facility]) Outpatient Attender: GERMAN SMITH MDReferrer: Brittney Stapleton EXCHANGE TELLER 07/20/2020 02:15:40 PM EST [facility] [place] [address] [facility] [address] 06/15/2020 12:00:00 AM EST eCW1 ([facility]) Outpatient [address] [facility] [place] [address] 06/15/2020 12:00:00 AM EST eCW1 ([facility]) Outpatient Attender: Maria Luz Jefferson NP Minna Cox Jade lopez 06/14/2020 09:30:00 AM EST MEDENT ([facility]) Unknown [address] [facility] [place] [address] 06/11/2020 12:00:00 AM EST eCW1 ([facility]) Outpatient Attender: LEESA VILLA MDReferrer: Brittney CARLTON 06/03/2020 08:01:23 AM EST [facility] Outpatient Attender: LEESA VILLA MDReferrer: Brittney CARLTON 05/21/2020 08:20:34 AM EDT [facility] Recurring Patient Attender: LEESA VILLA MDReferrer: Conrad nelson MD 05/18/2020 09:03:52 AM EDT [facility] [address] [facility] [place] [address] 05/12/2020 12:00:00 AM EDT eCW1 ([facility]) Unknown [address] [facility] [place] [address] 05/11/2020 12:00:00 AM EDT eCW1 ([facility]) Unknown [address] [facility] [place] [address] 05/06/2020 12:00:00 AM EDT eCW1 ([facility]) Outpatient [address] [facility] [place] [address] 05/06/2020 12:00:00 AM EDT eCW1 ([facility]) Unknown [address] [facility] [place] [address] 05/05/2020 12:00:00 AM EDT eCW1 ([facility]) Recurring Patient Referrer: Conrad Carlson MD 04/08/2020 04:0 5:02 PM EDT [facility] Recurring Patient Referrer: Conrad Carlson MD 04/08/2020 03:5 0:53 PM EDT [facility] Recurring Patient Referrer: Conrad Carlson MD 03/22/2020 04:1 2:53 PM EDT [facility] Outpatient Attender: YADIRA ANAND MDReferrer: Brittney Singh JUNIOR PROJECT MANAGER 03/09/2020 12:24:42 PM EDT [facility] Recurring Patient Referrer: Conrad Carlson MD 03/05/2020 01:5 3:53 PM EDT [facility] Recurring Patient Referrer: Conrad Carlson MD 03/05/2020 01:4 3:36 PM EDT [facility] Outpatient Attender: Conrad Carlson MD Physical Therapy 02/18/2020 0 1:45:00 PM EDT MEDENT ([facility]) Emergency Attender: MARLON ANGELESConsultant: PCP NO 02/11/2020 09:01:00 PM EDT - 02/12/2020 12:37:00 AM EDT [facility] Patient discharged. Recurring Patient Referrer: Conrad Carlson MD 01/28/2020 12:3 7:55 PM EDT [facility] Outpatient Referrer: Conrad Carlson MD 01/28/2020 04:56:00 AM EDT [facility] Outpatient Referrer: Conrad Carlson MD 01/22/2020 02:09:00 PM EDT [facility] Outpatient Referrer: Conrad Carlson MD 01/22/2020 10:58:00 AM EDT [facility] Outpatient Referrer: Conrad Carlson MD 01/22/2020 10:58:00 AM EDT [facility] Outpatient Referrer: Conrad Carlson MD 01/22/2020 07:17:00 AM EDT [facility] Outpatient Referrer: Conrad Carlson MD 01/22/2020 04:46:00 AM EDT [facility] Outpatient Referrer: Conrad Carlson MD 01/21/2020 02:58:00 PM EDT [facility] Outpatient Referrer: Conrad Carlson MD 01/21/2020 02:58:00 PM EDT [facility] Outpatient Referrer: Conrad Carlson MD 01/15/2020 12:51:00 PM EDT [facility] Outpatient Referrer: Conrad Carlson MD 01/15/2020 12:50:00 PM EDT [facility] Outpatient Attender: Conrad Carlson MD Physical Therapy 01/14/2020 1 0:30:00 AM EDT MEDENT ([facility]) Outpatient Attender: Jose Carlos Allen MD Main office - [place] 01/12/2020 11:00:00 AM EDT MEDENT ([facility]) Outpatient Attender: BIANKA CARLTON FP 01/06/2020 07:42:01 P M EDT [facility] Outpatient Referrer: Conrad Carlson MD 12/30/2019 12:36:00 PM EDT [facility] Outpatient Referrer: Conrad Carlson MD 12/30/2019 12:35:00 PM EDT [facility] Outpatient Referrer: Conrad Carlson MD 12/30/2019 10:51:00 AM EDT [facility] Outpatient Referrer: Conrad Carlson MD 12/30/2019 08:20:00 AM EDT [facility] Outpatient Referrer: Conrad Carlson MD 12/29/2019 09:14:00 AM EDT [facility] Outpatient Referrer: Conrad Carlson MD 12/29/2019 08:42:00 AM EDT [facility] Outpatient Attender: BIANKA CARLTON FP 12/27/2019 12:12:53 A M EDT [facility] Outpatient Referrer: Conrad Carlson MD 12/18/2019 09:41:00 AM EDT [facility] Outpatient Referrer: Kurt Holloway MD 12/18/2019 09:39:00 A M EDT [facility] Outpatient Referrer: Kurt Holloway MD 12/18/2019 09:35:00 A M EDT [facility] OFFICE OUTPATIENT NEW 30 MINUTES Attender: Conrad Carlson MD Physic al Therapy 12/10/2019 10:45:00 AM EDT MEDENT ([facility]) Outpatient Attender: Jose Carlos Allen MD Main office - [place] 12/08/2019 12:15:00 PM EDT MEDENT ([facility]) Outpatient Referrer: Kurt Holloway MD 10/21/2019 01:29:00 P M EDT [facility] Outpatient Referrer: Kurt Holloway MD 10/15/2019 10:36:00 A M EDT [facility] Outpatient Referrer: Kurt Holloway MD 10/15/2019 10:36:00 A M EDT [facility] Outpatient Referrer: Kurt Holloway MD 10/15/2019 10:29:00 A M EDT [facility] Outpatient Referrer: Kurt Holloway MD 10/15/2019 10:27:00 A M EDT [facility] Outpatient 10/01/2019 06:28:00 PM EST [facility] [address] [place] [address] 09/22/2019 12:00:00 AM EST eCW1 ([facility]) Outpatient Attender: WENDY ROLDAN CPSCAORT-CPSCNAFT 04/18 04:22:00 PM EDT - 04/18/2019 04:23:00 PM EDT [facility] Patient discharged. Medications Medication Brand Name Start Date Product Form Dose Route Admi nistrative Instructions Pharmacy Instructions Status Indications Reaction Description Data Source(s) cetirizine hydrochloride 10 MG Oral Tablet [Zyrtec] Zy rtec Allergy 10 MG Zyrtec Allergy 10 MG 06/16/2020 12:00:00 AM EST 1.0 {tablet} active Zyrtec Allergy 10 MG [facility] cetirizine hydrochloride 10 MG Oral Tablet [Zyrtec] Zy rtec Allergy 10 MG Zyrtec Allergy 10 MG 06/16/2020 12:00:00 AM EST 1.0 {tablet} active Zyrtec Allergy 10 MG [facility]) cetirizine hydrochloride 10 MG Oral Tablet [Zyrtec] Zy rtec Allergy 10 MG Zyrtec Allergy 10 MG 06/16/2020 12:00:00 AM EST 1.0 {tablet} active Zyrtec Allergy 10 MG [facility]CW1 [facility]) cetirizine hydrochloride 10 MG Oral Tablet [Zyrtec] Zy rtec Allergy 10 MG Zyrtec Allergy 10 MG 06/16/2020 12:00:00 AM EST 1.0 {tablet} active Zyrtec Allergy 10 MG [facility]CW1 [facility]) Phentermine Hydrochloride 37.5 MG Oral Capsule Phenter mine HCl 37.5 MG Phentermine HCl 37.5 MG 05/12/2020 12:00:00 AM EDT 1.0 {capsule} active Phentermine HCl 37.5 MG eCW1 ([facility]) medroxyprogesterone acetate 10 MG Oral Tablet [Provera ] Provera 10 MG Provera 10 MG 05/12/2020 12:00:00 AM EDT 1.0 {tablet_with_food} active Provera 10 MG eCW1 [facility]) medroxyprogesterone acetate 10 MG Oral Tablet [Provera ] Provera 10 MG Provera 10 MG 05/12/2020 12:00:00 AM EDT 1.0 {tablet_with_food} active Provera 10 MG eCW1 ([facility]) medroxyprogesterone acetate 10 MG Oral Tablet [Provera ] Provera 10 MG Provera 10 MG 05/12/2020 12:00:00 AM EDT 1.0 {tablet_with_food} active Provera 10 MG eCW1 ([facility]) medroxyprogesterone acetate 10 MG Oral Tablet [Provera ] Provera 10 MG Provera 10 MG 05/12/2020 12:00:00 AM EDT 1.0 {tablet_with_food} active Provera 10 MG eCW1 [facility]) medroxyprogesterone acetate 10 MG Oral Tablet [Provera ] Provera 10 MG Provera 10 MG 05/12/2020 12:00:00 AM EDT 1.0 {tablet_with_food} suspended Provera 10 MG eCW1 [facility]) Phentermine Hydrochloride 37.5 MG Oral Capsule Phenter mine HCl 37.5 MG Phentermine HCl 37.5 MG 05/12/2020 12:00:00 AM EDT 1.0 {capsule} active Phentermine HCl 37.5 MG eCW1 ([facility]) medroxyprogesterone acetate 10 MG Oral Tablet [Provera ] Provera 10 MG Provera 10 MG 05/12/2020 12:00:00 AM EDT 1.0 {tablet_with_food} active Provera 10 MG eCW1 [facility]) Phentermine Hydrochloride 37.5 MG Oral Capsule Phenter mine HCl 37.5 MG Phentermine HCl 37.5 MG 05/12/2020 12:00:00 AM EDT 1.0 {capsule} active Phentermine HCl 37.5 MG eCW1 ([facility]) Phentermine Hydrochloride 37.5 MG Oral Capsule Phenter mine HCl 37.5 MG Phentermine HCl 37.5 MG 05/12/2020 12:00:00 AM EDT 1.0 {capsule} active Phentermine HCl 37.5 MG eCW1 [facility]) Phentermine Hydrochloride 37.5 MG Oral Capsule Phenter mine HCl 37.5 MG Phentermine HCl 37.5 MG 05/12/2020 12:00:00 AM EDT 1.0 {capsule} suspended Phentermine HCl 37.5 MG eCW1 ([facility]) Phentermine Hydrochloride 37.5 MG Oral Capsule Phenter mine HCl 37.5 MG Phentermine HCl 37.5 MG 05/12/2020 12:00:00 AM EDT 1.0 {capsule} active Phentermine HCl 37.5 MG eCW1 [facility]) Phentermine Hydrochloride 37.5 MG Oral Capsule Phenter mine HCl 37.5 MG Phentermine HCl 37.5 MG 05/12/2020 12:00:00 AM EDT 1.0 {capsule} active Phentermine HCl 37.5 MG eCW1 ([facility]) medroxyprogesterone acetate 10 MG Oral Tablet [Provera ] Provera 10 MG Provera 10 MG 05/12/2020 12:00:00 AM EDT 1.0 {tablet_with_food} active Provera 10 MG [facility]CW1 [facility]) Diclofenac Sodium 0.01 MG/MG Topical Gel [Voltaren] Voltaren 1 % Voltaren 1 % 05/06/2020 12:00:00 AM EDT active Voltaren 1 % eCW1 ([facility]) Diclofenac Sodium 0.01 MG/MG Topical Gel [Voltaren] Voltaren 1 % Voltaren 1 % 05/06/2020 12:00:00 AM EDT active Voltaren 1 % eCW1 [facility]) Diclofenac Sodium 0.01 MG/MG Topical Gel [Voltaren] Voltaren 1 % Voltaren 1 % 05/06/2020 12:00:00 AM EDT active Voltaren 1 % eCW1 [facility]) Diclofenac Sodium 0.01 MG/MG Topical Gel [Voltaren] Voltaren 1 % Voltaren 1 % 05/06/2020 12:00:00 AM EDT active Voltaren 1 % [facility]CW1 [facility]) tizanidine 2 MG Oral Capsule Tizanidine HCL 01/23/2020 12:00:00 AM EDT ORAL active MEDENT ([facility]) Lidocaine Lidocaine 01/23/2020 12:00:00 AM EDT act prashant MEDENT ([facility]) Cyclobenzaprine hydrochloride 10 MG Oral Tablet Cyclobenzapr ine HCL 01/14/2020 12:00:00 AM EDT ORAL active M EDENT ([facility]) No Active Medications 12/10/2019 12:00:00 AM EDT completed MEDENT ([facility]) Methocarbamol 500 MG Oral Tablet Methocarbamol 12/08/2019 12:00:00 AM EDT ORAL active MEDENT ([facility]) zonisamide 50 MG Oral Capsule Zonisamide 12/08/2019 12:00:00 AM EDT ORAL active MEDENT ([facility]) medroxyprogesterone acetate 10 MG Oral Tablet [Provera ] Provera 10 MG Provera 10 MG 09/22/2019 12:00:00 AM EST 1.0 {tablet_with_food} active Provera 10 MG eCW1 [facility]) medroxyprogesterone acetate 10 MG Oral Tablet [Provera ] Provera 10 MG Provera 10 MG 09/22/2019 12:00:00 AM EST 1.0 {tablet_with_food} active Provera 10 MG eCW1 [facility]) medroxyprogesterone acetate 10 MG Oral Tablet [Provera ] Provera 10 MG Provera 10 MG 09/22/2019 12:00:00 AM EST 1.0 {tablet_with_food} suspended Provera 10 MG eCW1 ([facility]) Phentermine Hydrochloride 37.5 MG Oral Capsule Phenter mine HCl 37.5 MG Phentermine HCl 37.5 MG 09/22/2019 12:00:00 AM EST 1.0 {capsule} suspended Phentermine HCl 37.5 MG eCW1 ([facility]) Phentermine Hydrochloride 37.5 MG Oral Capsule Phenter mine HCl 37.5 MG Phentermine HCl 37.5 MG 09/22/2019 12:00:00 AM EST 1.0 {capsule} suspended Phentermine HCl 37.5 MG eCW1 ([facility]) medroxyprogesterone acetate 10 MG Oral Tablet [Provera ] Provera 10 MG Provera 10 MG 09/22/2019 12:00:00 AM EST 1.0 {tablet_with_food} suspended Provera 10 MG eCW1 ([facility]) medroxyprogesterone acetate 10 MG Oral Tablet [Provera ] Provera 10 MG Provera 10 MG 09/22/2019 12:00:00 AM EST 1.0 {tablet_with_food} suspended Provera 10 MG eCW1 [facility]) Phentermine Hydrochloride 37.5 MG Oral Capsule Phenter mine HCl 37.5 MG Phentermine HCl 37.5 MG 09/22/2019 12:00:00 AM EST 1.0 {capsule} suspended Phentermine HCl 37.5 MG eCW1 ([facility]) medroxyprogesterone acetate 10 MG Oral Tablet [Provera ] Provera 10 MG Provera 10 MG 09/22/2019 12:00:00 AM EST 1.0 {tablet_with_food} suspended Provera 10 MG eCW1 [facility]) Phentermine Hydrochloride 37.5 MG Oral Capsule Phenter mine HCl 37.5 MG Phentermine HCl 37.5 MG 09/22/2019 12:00:00 AM EST 1.0 {capsule} suspended Phentermine HCl 37.5 MG eCW1 ([facility]) Phentermine Hydrochloride 37.5 MG Oral Capsule Phenter mine HCl 37.5 MG Phentermine HCl 37.5 MG 09/22/2019 12:00:00 AM EST 1.0 {capsule} suspended Phentermine HCl 37.5 MG eCW1 ([facility]) Phentermine Hydrochloride 37.5 MG Oral Capsule Phenter mine HCl 37.5 MG Phentermine HCl 37.5 MG 09/22/2019 12:00:00 AM EST 1.0 {capsule} active Phentermine HCl 37.5 MG eCW1 [facility]) medroxyprogesterone acetate 10 MG Oral Tablet [Provera ] Provera 10 MG Provera 10 MG 09/22/2019 12:00:00 AM EST active 1 tablet with food eCW1 ([facility]) Phentermine Hydrochloride 37.5 MG Oral Capsule Phenter mine HCl 37.5 MG Phentermine HCl 37.5 MG 09/22/2019 12:00:00 AM EST 1.0 {capsule} active Phentermine HCl 37.5 MG eCW1 [facility]) Phentermine Hydrochloride 37.5 MG Oral Capsule Phenter mine HCl 37.5 MG Phentermine HCl 37.5 MG 09/22/2019 12:00:00 AM EST 1.0 {capsule} suspended Phentermine HCl 37.5 MG eCW1 ([facility]) medroxyprogesterone acetate 10 MG Oral Tablet [Provera ] Provera 10 MG Provera 10 MG 09/22/2019 12:00:00 AM EST 1.0 {tablet_with_food} active Provera 10 MG eCW1 [facility]) medroxyprogesterone acetate 10 MG Oral Tablet [Provera ] Provera 10 MG Provera 10 MG 09/22/2019 12:00:00 AM EST 1.0 {tablet_with_food} suspended Provera 10 MG eCW1 ([facility]) medroxyprogesterone acetate 10 MG Oral Tablet [Provera ] Provera 10 MG Provera 10 MG 09/22/2019 12:00:00 AM EST 1.0 {tablet_with_food} suspended Provera 10 MG eCW1 [facility]) Phentermine Hydrochloride 37.5 MG Oral Capsule Phenter mine HCl 37.5 MG Phentermine HCl 37.5 MG 09/22/2019 12:00:00 AM EST 1.0 {capsule} active Phentermine HCl 37.5 MG eCW1 [facility]) Phentermine Hydrochloride 37.5 MG Oral Capsule Phenter mine HCl 37.5 MG Phentermine HCl 37.5 MG 09/22/2019 12:00:00 AM EST active 1 capsule eCW[facility]) Insurance Providers Payer name Policy type / Coverage type Policy ID Covered libertarian ID Covered libertarian's relationship to estrada Policy E[employer] Plan Information [employer] [id number] SP [id number] [facility] Comm Plan Medicaid F [id number] SELF [id number] [facility] Commercial Insurance Co. [id number] Self [id number] [facility]([place]) O [id number] S [id number] [facility] Comm Plan Medicaid F [id number] SELF [id number] [facility] Commercial F [id number] SELF [id number] 2917 UN AMERICHOICE XIX -HMO [id number] 18 [id number] [facility](MCAID) O [id number] S [id number] Managed Care - [facility] Community Plan P [id number] S [id number] Medicaid S [id number] S [id number] [facility] COMMUNITY PL [id number] Unemploye d [id number] UN COMMUNITY PLAN MCDO [id number] SP [id number] [facility] COMMUNITY PL [id number] Unemploye d [id number] [facility] DEZ [id number] S [id number] [facility] [id number] Unemployed [id number] Managed Care - Community Plan [facility] P [id number] S [id number] [facility] [id number] SP [id number] [facility] Health Maintenance Organization (HMO) [id number] Self [id number] Managed Care - Community Plan [employer] [facility] P [id number] S [id number] [facility] [id number] SP [id number] Managed Care - Community Plan [facility] P [id number] S [id number] Managed Care - Community Plan [facility] P [id number] S [id number] ANSI-Medicaid [id number] Medicaid S [id number] S [id number] [facility] Dez/MCR Health Maintenance Organization (HMO) [id number] Self [id number] UNHC COMMUNITY PLAN MCDO [id number] SP [id number] [place] [id number] Self [id number] MEDICAID M [id number] S [id number] UNHC AMERICHOICE XIX -HMO [id number] 18 [id number] UNHC COMMUNITY PLAN XIX [id number] 18 [id number] MEDICAID [id number] SP [id number] [place] [id number] Self [id number] [place] Medig[place] Part B [id number] Self [id number] [employer] [facility] Dez/MCR Medigap Part B [id number] Self [id number] [facility] Dez/MCR Health Maintenance Organization (HMO) [id number] Self [id number] [facility](MCAID) O [id number] S [id number] [place] Medig[place] Part [place] [id number] Self [id number] [place]ig[place] [id number] Self [id number] UNHC COMMUNITY PLAN MCDHMO [id number] SP [id number] D [facility] CHP/Essential Plan P [id number] S [id number] Medicaid Dental S [id number] S [id number] [employer] [facility] P [id number] S [id number] UNHC COMMUNITY PLAN MCDHMO [id number] SP [id number] SELF PAY ONLY UNAVAILABLE SP UNAV AILABLE MEDICAID [id number] SP [id number] [place] Medigap Part B Self [facility] Dez/MCR Health Maintenance Organization (HMO) Self [facility] Dez/MCR Health Maintenance Organization (HMO) [id number] Self [id number] UNHC COMMUNITY PLAN MCDHMO UNHC COMMUNITY PLAN MCDO Self [place] BALL UNHC COMMUNITY PLAN MCDHMO SELF PAY UNAVAILABLE SP UNAVAILA BLE [facility] Care Hmo Commercial Self MEDICAID [id number] Estee [id number] [facility] MEDICAID [id number] Estee [id number] [facility](MCAID) O [id number] S [id number] UNHC COMMUNITY PLAN MCDHMO [id number] SP [id number] SELF PAY ONLY [id number] SP [id number] UNHC COMMUNITY PLAN MCDHMO [id number] SP [id number] UnitedHealth Care Hmo Commercial Self Unitedhealthcare Medicaid Medicaid Self D Managed Care United [facility] P [id number] S [id number] MEDICAID UNAVAILABLE UNAVAILA BLE N REGION CNTR/INDEP LIVING [id number] SP [id number] OTHER WORKERS COMPENSATION [id number] SP [id number] [facility] MANAGEMENT DOROTHY [facility] [id number] SP [id number] [place]BS [place] PPO 302/307 [id number] SP [id number] HMO BLUE [id number] SP [id number] Problems, Conditions, and Diagnoses Code Display Name Description Problem Type Effective Dates Data Source(s) N91.2 Amenorrhea Amenorrhea Problem 05/12/2020 12:00:00 AM ED T [facility] J94120 Latex allergy status Latex allergy status Diagnosis 02/11/2020 09:01:00 PM EDT [facility] [id number] Personal history of urinary (tract) infe ctions Personal history of urinary (tract) infections Diagnosis 02/11/2020 09:01:00 PM EDT [facility] R1084 Generalized abdominal pain Generalized abdominal pain Diagnosis 02/11/2020 09:01:00 PM EDT [facility] Surgeries/Procedures Procedure Description Date Indications Data Source(s) X-Ray Hip Unilateral With Pelvis 2-3 Views 02/18/2020 12:00:00 AM EDT [facility] ([facility]) ELECTROENCEPHALOGRAM W/REC AWAKE&ASLEEP 01/02/2020 12: 00:00 AM EDT [facility] ([facility]) ELECTROENCEPHALOGRAM W/REC AWAKE&ASLEEP 01/02/2020 12: 00:00 AM EDT [facility] ([facility]) Magnetic Resonance Angiogtaphy Head W/O Contrast Material(S) 12/10/2019 12:00:00 AM EDT [facility] ([facility]) Magnetic Resonance Angiogtaphy Head W/O Contrast Material(S) 12/10/2019 12:00:00 AM EDT [facility] ([facility]) MRI BRAIN BRAIN STEM W/O CONTRAST MATERIAL 12/10/2019 12:00:00 AM EDT [facility] ([facility]) MRI BRAIN BRAIN STEM W/O CONTRAST MATERIAL 12/10/2019 12:00:00 AM EDT [facility] ([facility] ) MRI SPINAL CANAL LUMBAR W/O CONTRAST MATERIAL 09/18/19 12:00:00 AM EST [facility] ([facility] ) MRI SPINAL CANAL LUMBAR W/O CONTRAST MATERIAL 09/18/19 20 12:00:00 AM EST [facility] ([facility] ) MRI SPINAL CANAL CERVICAL W/O CONTRAST MATRL 0 12:00:00 AM EST [facility] ([facility] ) MRI SPINAL CANAL CERVICAL W/O CONTRAST MATRL 0 12:00:00 AM EST [facility] ([facility] ) Needle electromyography, each extremity, with related paraspinal areas, when performed, done with nerve conduction, amplitude and latency/velocity study; complete, five or more muscles studied, innervated by three or more nerves or four or more spinal levels (list separately in addition to the code for primary procedure). 09/04/2019 12:00:00 AM EST [facility] T ([facility] ) Needle electromyography, each extremity, with related paraspinal areas, when performed, done with nerve conduction, amplitude and latency/velocity study; complete, five or more muscles studied, innervated by three or more nerves or four or more spinal levels (list separately in addition to the code for primary procedure). 09/04/2019 12:00:00 AM EST [facility] T ([facility] ) 94598 Nerve conduction studies 13 or more studies NEW 201209/04/2019 12:00:00 AM EST [facility] ([facility] ) Needle electromyography, each extremity, with related paraspinal areas, when performed, done with nerve conduction, amplitude and latency/velocity study; complete, five or more muscles studied, innervated by three or more nerves or four or more spinal levels (list separately in addition to the code for primary procedure). 09/02/2019 12:00:00 AM EST [facility] T ([facility] ) Needle electromyography, each extremity, with related paraspinal areas, when performed, done with nerve conduction, amplitude and latency/velocity study; complete, five or more muscles studied, innervated by three or more nerves or four or more spinal levels (list separately in addition to the code for primary procedure). 09/02/2019 12:00:00 AM EST [facility] T ([facility] ) Needle Electromyography Non Extremity Done With Nerve Conduc tion 09/02/2019 12:00:00 AM EST [facility] ([facility]) 61155 Nerve conduction studies 13 or more studies NEW 201209/02/2019 12:00:00 AM EST [facility] ([facility]) Results ID Date Data Source [id number] 08/20/2020 12:00:00 AM EST [facility] Name Value Range Interpretation Code Description Data Krysten rce(s) Supporting Document(s) SARS coronavirus 2 RNA [Presence] in Res piratory specimen by HEENA with probe detection NEGATIVE [facility] This lab was ordered by Lavern Arce and reported by [employer]. ID Date Data Source [id number] 08/20/2020 12:00:00 AM EST [facility] Name Value Range Interpretation Code Description Data Krysten rce(s) Supporting Document(s) Carestart Rapid COVID Antigen Test Negative [facility] This lab was reported by Lavern mendoza. ID Date Data Source [id number] 08/16/2020 08:48:39 AM EST [facility]Name: Arpita PryorDOB: 1985Provider: RobertgeraldojulioDemetra bakerDOS: 08/13/2020 Reason For VisitArpita Pryor is here today for Left hip. Arpita Pryor is an established patient here for follow up. Patient is not working at this time. History of Present IllnessPatient follows up today for her left hip, she has known degenerative changes. Patient states that she had the cortisone injection back in May which helped her for about 1 month until she had to tony after her dog. She states since then she has had increased pain. She states that she has difficulty walking because of the pain. She is looking for a solution for her hip issues. She does have chronic issues with her lumbar spine. Assessment Pain of left hip (719.45) (M25.552) Patient with left hip primary osteoarthritis PlanPatient was upset with this visit today she feels it was a waste of her time. She needs a hip replacement but I told her that I do not have a timeframe for when we can replace her hip because of the pandemic. She has Medicaid so we cannot do her surgery at the surgery center. She states that we are not helping her with her pain. She asked about something nonnarcotic that she could try. She is requesting Lidoderm patches but I told her that I am not sure her insurance will pay for these. I can give her prescription for aqua therapy as she has found this helpful. We could set her up for another cortisone injection next month but I told her if she does get this and surgeries to open at the hospital she would not be able to have surgery for 3 months from the injection. She verbalized understanding. Her arthritic panel did not show any abnormalities. She is looking for permanent disability for her left hip I told her I can take her out of work but she tells me she does not work. I did not examine her hip due to her response to this visit today. We discussed the use of a walker to get her weight off of her left leg. Work / School NoteThe percentage of temporary impairment is 0%. The patient is not working at this time. This document was dictated and electronically signed using [employer] software. A reasonable attempt at proof reading has been made to minimize errors. Please call with any questions. Signatures Electronically signed by : Demetra Kowalski PA-C; Aug 13 2020 11:24AM EST (Author) Electronically signed by : Leesa Villa M.D.; Aug 16 2020 8:48AM EST (Author) Name Value Range Interpretation Code Description Data Krysten rce(s) Supporting Document(s) ID Date Data Source [id number] 07/20/2020 02:19:42 PM EST [facility] PCName: Arpita PryorDOB: 1985Provider: Geetha Smith: 07/20/2020 Reason For VisitArpita Pryor is here today for lumbar spine. Patient is seen at the request of Yadira Anand MD. Arpita Pryor is a new patient. LSP XRay 03/05/20 @ [facility]. Patient ambulates with one crutch. Other DOI/DOO: 2018. Patient states the injury occurred while running. The patient has not had a course of physical therapy for greater than 4 weeks. The patient has not had a course of NSAIDs for greater than 4 weeks. 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 Patient is not working at this time due to this problem. History of Present IllnessShe is a very animated upset and frustrated 34-year-old woman who presents today with a complaint of back pain. She is known to have hip dysplasia on the left and she is considering having hip replacement surgery. She recently underwent an injection in the left hip which she said was amazing . It took away her pain. But when the injection wore off her back pain has returned. She denies any radicular component. She says she was told by other doctors that she has arthritis everywhere and she is only 34 years old. She is totally disabled by her consuming pain. 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 Results/DataLumbar MRI date of exam September 18, 2019 was reviewed. It is negative. No herniated disks no significant degenerative changes no arthritis no congenital developmental or traumatic problems. I gave her the results and she disagreed with me telling telling me that she has scoliosis and arthritis her x- rays do show a slight 13 degree lumbar curve which is considered to be extremely mild and not associated with any symptoms AssessmentLeft hip pain PlanI do not think there is anything primarily wrong with her back. I think her back pain is secondary to the bad hip she has and she is considering hip replacement surgery but she says she can never have it because she is allergic to every kind of metal that exists. She said she had ankle surgery and she got an infection which was evidence that her body rejected the metal they put in. I tried to suggest to her that the infection is nothing to do with an allergy but she would not hear it. I also suggested to her that we make hip replacements out of titanium that are considered to be bioinert and nonreactive to people with allergies. She would not hear of that either. I will leave that discussion up to her and Dr. Sanchez who is going to be doing her hip replacement if she consents. She does not need a back operation she does not need further treatment or follow-up with regard to her spine.After receiving this information she became irate in the office demanding that I prescribe pain medication for her because she has none. She says none of her doctors will prescribe her pain medication and that is the reason that she came here. I did not give her any. She left upset. Work / School NoteThe patient is not working at this time. Signatures Electronically signed by : German Smith M.D.; Jul 20 2020 2:15PM EST (Author) Electronically signed by : German Smith M.D.; Jul 20 2020 2:19PM EST (Author) Name Value Range Interpretation Code Description Data Krysten hercules(s) Supporting Document(s) ID Date Data Source [id number] 06/03/2020 08:01:23 AM EST [facility] PCName: Arpita PryorDOB: 1985Provider: Chucky Villa: 06/01/2020 Reason For VisitArpita Pryor is here today for Left hip. Arpita Pryor is an established patient here for follow up. Patient is not working at this time. Plan Start: Triamcinolone Acetonide 0.1 % External Cream; APPLY SPARINGLY TO AFFECTEDAREA(S) 3 TIMES A DAY Rx By: Leesa Villa; Dispense: 5 Days ; #:1 X 15 GM Tube; Refill: 0;For: Hand joint pain; JOCE = N; Verified Transmission to [facility] 1870; Last Updated By: Zachary James; 06/01/2020 4:45:40 PM ASSESSMENT:Primary osteoarthritis, left hip. Left hip pain.Patient comes in for an 80 mg Depo-Medrol injection today. No complications were encountered. PLAN: Patient was also asking for a refill of Triamcinolone acetonide 0.1% cream for her hands that she was given at urgent care. I think we can give her a refill and then she will follow up with her primary care doctor. She will return here in a month for her left hip. Signatures Electronically signed by : Teresa Wilcox, ; Jun 02 2020 1:00PM EST Electronically signed by : Leesa Villa M.D.; Jun 03 2020 8:01AM EST (Author) Name Value Range Interpretation Code Description Data Krysten delisa(s) Supporting Document(s) ID Date Data Source [id number] 05/21/2020 08:20:34 AM EDT [facility] PCName: Arpita PryorDOB: 1985Provider: Chucky Villa: 05/18/2020 Reason For VisitSOS Patient Intake: Arpita Pryor is here today for Left hip. Arpita Pryor is a new patient. SOS Occupation and Work Status: Patient is not working at this time. Assessment 1. Multiple joint complaints (719.99) (M25.9) 2. Inflammation Plan Arthritis Panel (Print Please) (URIC ACID, VINITA SCREEN, C REACTIVE PROTEIN,RHEUMATOID FACTOR, ESR); Status:Active; Requested for:18May2020; Perform:Outside Facility; Order Comments:Please fax resukts to Dr. Leesa Villa, ; Due:28May2020; Last Updated By:Francoise Zapien; 05/18/2020 10:10:51 AM;Ordered; For:Inflammation, Multiple joint complaints, Pain of both hip joints; Ordered By:Leesa Villa; X-Ray I Hip Bilat Pelvis - 2 views (XRays were ordered, obtained and interpreted todayin the office. Indication: pain/dysfunction.); Status:Complete; Done: 18May2020 Perform:SOS14 (General); Due:01Jun2020; Last Updated By:Danni Singh; 05/18/2020 9:19:03 AM;Ordered; For:Pain of both hip joints; Ordered By:Leesa Villa;Weight Bearing Status : Weight bearing Assessment:Left low back painLeft hip dysplasia with primary osteoarthritis and left hip bursal bursitisArpita is a 34-year-old lade here for another opinion on her left hip. She has seen a couple of other physicians in the past. Pain is mainly on the left side for at least one year. When she was in [place], she had a cortisone shot on about three separate occasions. The first went well and the second two were in [place] that did not do quite as well. She has some some PT and has been on Meloxicam but it gave her ankle swelling so she gave up and is leery going on nonsteroidals. 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 She used to run and play sports and lost 150 pounds from a maximum of 320 pounds. She was running on a trial when the pain all started.On exam, the right hip is mildly arthritic and the left hip clearly arthritic and her left low back is irritable.Imaging:X-rays: X- rays of the pelvis and two views of the each hip were ordered, obtained and interpreted by me in the office today with supplemented prior views including MRI of the hip and lumbar spine.There is mild scoliosis of the spine. Both hips show hip dysplasia and primary osteoarthritis, left > right. There is a 15 degree roof angle on the left, similar on the right.Plan:Based on the x-rays and MRI and failure of conservative treatment with the symptoms that she has, there is nothing other than a hip replacement that will give her long-term relief.Her mother apparently had her hips done in her thirties so the etiology of the dysplasia is probably genetic although this is academic in terms of what we need to do.She is not a candidate for resurfacing and is not a candidate for arthroscopy. She also asked about stem cells and I told her not to waste her time and money and that would not work.I will give her an arthritis panel test as she has multiple joint arrmd-zcr-ldafm but I do not believe her condition is related to an inflammatory etiology.The risks, benefits and lack of guarantees of hip replacement were discussed but ultimately this is the way she will need to go and there is no huynh.She is considering having another cortisone injection but was not happy with the ones in [place] so she will come back to me to have one done here. Signatures Electronically signed by : Aleah Lenz, ; May 19 2020 10:49AM EST Electronically signed by : Leesa Villa M.D.; May 21 2020 8:20AM EST (Author) Name Value Range Interpretation Code Description Data Krysten rce(s) Supporting Document(s) ID Date Data Source [id number] 03/09/2020 12:24:42 PM EDT [facility] PCName: Arpita BallDOB: 1985Provider: Tiana Anand: 03/05/2020 AssessmentREASON FOR VISIT:This is an emotional 34-year-old woman who reports that she suddenly started to have hip pain, with groin pain, on the left side nine months ago, when she was jogging on a trail. Ever since that time she has had left-sided groin pain, she hasn't been able to go to work and has pain at night. The pain is 8 out of 10. The pain diminishes slightly if she pushes hard on her groin. She is from [place] and has been seen by [facility]. They worked her up with an MRI scan of her back and hip, and did plain x-rays. In a nutshell, the MRI scan of her hip is consistent with a labral tear. Plain x-rays of her hip show dysplasia of her hip, which I think pre-dated this jogging incident, cystic changes in the acetabulum, thinning of the superior weightbearing portion of her joint space, quite a valgus femoral neck on both sides, about 170 degrees, and mild osteopenia. X-rays of her back show lumbar spondylosis that is quite mild and normal disc space. She had an injection of, what sounds like, Marcaine and Depo- Medrol , in her hip, which made her better for an hour but then hurt more for several days. She is in for a consultation. She wants to know about an injection of stem cells and other, what I would call, experimental treatment, for someone who has significant hip arthritis.PHYSICAL EXAMINATION:The patient is awake alert and oriented x3. The patient has appropriate mood and affect. The upper extremities have normal strength, sensation, reflexes, muscle tone and coordination. There are no skin lesions in either upper extremity. There are normal pulses in both wrists. These characteristics are important in the event that the patient may need crutches for ambulation in the future. Examination of the left hip shows pretty much normal motion, with pain at extremes, mostly with external rotation but also some with internal rotation. There is no leg length inequality. There is tenderness of the SI joint around her right trochanter and in the left hip and groin, around her anterior-inferior iliac spine and around the trochanter. She walks with far more antalgia and Trendelenburg on the left side than I would expect.X-RAYS:AP pelvis and lateral of the left hip were ordered, taken and interpreted by me today. They show the abnormality that I described previously.AP and lateral x-rays of the lumbar spine were ordered, taken and interpreted today. They show subtle concavity on the right side and, what look like, prema from a gallbladder operation. Her disc spaces are pretty normal and she has normal lumbar lordosis.History of labral tear,seen on MRI scan. I have a note from [facility] but I do not have an MRI scan report. I do not have the report of her lumbar MRI scan. The plain x-rays are consistent with hip dysplasia and subsequent osteoarthritic change of a moderate degree.DIAGNOSIS:Hip dysplasia, moderate primary osteoarthritis of left hip, degenerative labral tear and symptoms greater than I would anticipate from the x-rayTREATMENT:I think a third opinion is what she wants. I am going to have her see Dr. Villa. I don't think an arthroscopic hip operation, with the amount of degenerative change she has already, is going to be particularly beneficial. I am asking Dr. Villa to see her in this respect, to either fortify or refute that premise. At least right now, there is no evidence that I am aware of that stem cell injections in her hip or bone marrow injections are likely to remedy this situation. I would be happy to see her back after she sees Dr. Villa.Hs Plan Start: Celecoxib 200 MG Oral Capsule (CeleBREX); TAKE 1 CAPSULE DAILY WITH AMEAL NEEDED. MDD:1 Rx By: Yadira Anand; Dispense: 0 Days ; #:30 Capsule; Refill: 1;For: Pain of left hip; JOCE = N; [facility]; Last Updated By: Zachary James; 03/05/2020 3:31:39 PM X-Ray I Hip Pelvis - 1 view (XRays were ordered, obtained and interpreted today in theoffice. Indication: pain/dysfunction.); Status:Complete; Done: [id number] Perform:SOS29; Due:18Gdg2252; Last Updated By:Leigha Batista; 03/05/2020 3:09:29 PM;Ordered; For:Pain of left hip; Ordered By:Yadira Anand;Weight Bearing Status : Weight bearingLaterality: : Left X- Ray I Lumbosacral - 2 views (XRays were ordered, obtained and interpreted today inthe office. Indication: pain/dysfunction.); Status:Complete; Done: [id number] Perform:SOS29; Due:54Esx0909; Last Updated By:Leigha Batista; 03/05/2020 3:09:29 PM;Ordered; For:Pain of left hip; Ordered By:Yadira Anand; Signatures Electronically signed by : Francoise Quinonez, ; Mar 08 2020 12:05PM EST Electronically signed by : Yadira Anand M.D.; Mar 09 2020 12:24PM EST Name Value Range Interpretation Code Description Data Krysten rce(s) Supporting Document(s) ID Date Data Source [id number] 02/13/2020 02:20:00 AM EDT [facility] [address] [place] [address] PHONE: [phone] FAX: [phone] Name ..............: KONSTANTIN Castro Acct Number ...........................: [id number] ROOM. ............: TR-07 Number ............................: [id number] Stay type.........: E/R Discharge Date...............:02/12/20 Admit Date .....: 02/11/20 Admit Phys .............................: BRIDGETTE BIANCHI Date of ..: 1985 Family Phys ...........................: NO PCP Phone..............: [phone] Age.................................:34 Film# ...............:[id number] Sex.................................:F Unsigned transcriptions are preliminary reports and do not represent a medical or legal document [facility] [id number] COMPLETE:02/12/20 04:08 VMT [id number] Please See Scanned Results. Name Value Range Interpretation Code Description Data Krysten rce(s) Supporting Document(s) ID Date Data Source [id number] 02/11/2020 09:01:00 PM EDT [facility] 1 OrderSheet [facility] Emergency Department [address] [place] [address] Phone #: ext- [phone] 02/11/2020 20:30 Patient: ARPITA PRYOR Sex: F : 1985 Age: 34yWEIGHT:70.3 kg (S) HEIGHT:67 inches (S) BMI:24.3ALLERGIES: Adhesive, Latex, Metal, Morphine and Related, NSAIDsCHIEF COMPLAINT: abdominal painDIAGNOSIS: Abdominal painLAB ORDERSOrder Description Priority Entered Acknowledged InitialedCBC w Diff STAT 21:02/11/2020 21:36 Lior Castellano R.N. P.A.-C;CMP STAT 21:02/11/2020 21:36 Lior Castellano.N. P.A.-C;Lipase STAT 21:02/11/2020 21:36 Lior Castellano.N. P.A.-C;Urinalysis (Clean STAT 21:02/11/2020 23:26 Shawna[facility] Lior HernandezNJose Antonio P.A.-C;HCG Serum Qual STAT 21:02/11/2020 21:36 Lior Castellano.N. P.A.-C;Culture, Urine STAT 21:02/11/2020 21:36 Gray,(Urine, Clean Lior Orta.GaloCatch) P.A.-C;Troponin-T STAT 21:17 02/11/2020 21:36 Lior Castellano R.N. P.A.-C;DIAGNOSTIC STUDY ORDERSOrder Description Priority Entered Acknowledged InitialedCT Abd PEL W/ IV STAT 21:16 02/11/2020 21:36 Gray,Contrast Only Lior Griffin R.N.(Oxygen?(No)) P.A.-C;(IV?(Yes)) Reason for Study: NO CONTRAST: Pending CMP and HCG: abd pain, N/D. hx of d- itits/osis 2 OrderSheet [facility] Emergency Department [address] [place] [address] Phone #: ext- [phone] 02/11/2020 20:30 Patient: ARPITA PRYOR Sex: F : 1985 Age: 34yMEDICATION/IV/DRIP/FLUID ORDERSOrder Description Priority Entered Acknowledged InitialedNS IV : B olus 500 21:13 02/11/2020 21:37 Gray,mL, then 100 mL/hr Lior HernandezN. P.A.-C;Zofran IVP 4 mg 21:15 02/11/2020 21:37 Lior Castellano R.N. P.A.-C;Ativan IVP 1 mg 21:15 02/11/2020 21:37 Gray(HIGH ALERT Lior Orta.Anant.MEDICATION) P.A.-C;GENERAL ORDERSOrder Description Priority Entered Acknowledged InitialedNPO 21:13 02/11/2020 21:36 Lior Castellano R.N. P.A.-C;Saline Lock 21:02/11/2020 21:36 Lior Castellano R.N. P.A.-C;EKG 21:02/11/2020 21:36 Lior Castellano R.N. P.A.-C;Diesel Engine Ii Pipe Fitter 21:17 02/11/2020 21:36 Gray,(continuous) Lior Griffin R.N., P.A.-C;Pulse Oximetry 21:17 02/11/2020 21:36 Gray,Continuous Lior Griffin R.N., P.A.-C;[Electronically signed by Kimmie Matos R.N. (00:37 02/12/2020)][Electronically signed by Lior Murray P.A.-C (00:54 02/12/2020)][Electronically locked by Kimmie Matos R.N. (00:37 02/12/2020)] Name Value Range Interpretation Code Description Data Krysten rce(s) Supporting Document(s) ID Date Data Source [id number] 02/11/2020 09:01:00 PM EDT [facility] 1 Medication Reconciliation Report [facility] Emergency Department [address] [place] [address] Phone #: ext- [phone] 02/11/2020 20:30 Patient: ARPITA PRYOR Sex: F : 1985 Age: 34yWeight: 70.3 kgHeight/Length: 67 in.BMI: 24.3ALLERGIES: Adhesive, Latex, Metal, Morphine and Related, NSAIDsThe patient's Home Medications are listed below:CONTINUE TAKING THE FOLLOWING MEDICATIONS: cloNIDine HCl Oral Cymbalta Oral (30 mg) 1 capsule, daily Strattera Oral Xanax OralCONTINUE TAKING THE FOLLOWING MEDICATIONS UNTIL YOU CHECK WITH YOUR PHYSICIAN: Cyclobenzaprine HCl OralThe source(s) of the original Home Medication information:Not obtained.The following Medications were given to the patient in the Emergency Department:NS [IV] IV Fluids bolus 500 mL wide open, administered: 02/11/2020 9:37:00 PMZofran [IVP] IVP 4 mg, administered: 02/11/2020 9:37:00 PMAtivan [IVP] IVP 1 mg, administered: 02/11/2020 9:32:00 PMThe following Medications were prescribed to the patient:polyethylene glycol 3350 17 gram oral powder packet Take 1 packet once a day for 10 days --Dispense 10 packet. Refills: 0. Substitution permitted.Pharmacy - [id number] [phone] [facility] ; [place] [address]. FaxNumber: [phone]. -- Lior Murray P.A.-C 2 Medication Reconciliation Report [facility] Emergency Department [address] [place] [address] Phone #: ext- [phone] 02/11/2020 20:30 Patient: ARPITA PRYOR Sex: F : 1985 Age: 34y Name Value Range Interpretation Code Description Data Krysten rce(s) Supporting Document(s) ID Date Data Source [id number] 02/11/2020 09:01:00 PM EDT [facility] 1 Medication Administration Record [facility] Emergency Department [address] [place] [address] Phone #: ext- [phone] 02/11/2020 20:30 Patient: ARPITA PRYOR Sex: F : 1985 Age: 34yWeight: 70.3 kgHeight/Length: 67 inBMI: 24.3ALLERGIES: Adhesive, Metal, Latex, Morphine and Related, NSAIDs Date/Time Medication Administered Medication OrderedStart NS [IV] NS IV : Bolus 500 mL, then 92114:37 02/11/2020 Dose: IV Fluids mL/hrMaGaby aguillon R.N. Bolus: 500 mL wide open---- Dispensed: 1000 mL bagStop Site: #1 left AC22:36 02/11/2020Kimmie Matos R.N.Given ZOFRAN [IVP] (ONDANSETRON HCL) Zofran IVP 4 mg21:37 02/11/2020 Dose: 4 mg IVPMattGaby mclean R.N. Site: #1 left ACGiven ATIVAN [IVP] (LORAZEPAM) Ativan IVP 1 mg (HIGH ALERT21:32 02/11/2020 Dose: 1 mg IVP MEDICATION)Gaby Castellnao R.N. Site: #1 Name Value Range Interpretation Code Description Data Krysten rce(s) Supporting Document(s) ID Date Data Source [id number] 02/11/2020 09:01:00 PM EDT [facility] 1 General Instructions [facility] Emergency Department [address] [place] [address] Phone #: ext- [phone] 02/11/2020 20:30 Patient: ARPITA PRYOR Sex: F : 1985 Age: 34yAcute generalized abdominal pain of unknown cause.INSTRUCTIONSTake Tylenol (Acetaminophen) or Motrin (Ibuprofen) as needed for fever control. Take medicationaccording to label instructions. Do not work for two days.Drink plenty of fluids.Warnings: Further evaluation is necessary.GENERAL WARNINGS: Return or contact your physician immediately if your condition worsens orchanges unexpectedly, if not improving as expected, or if other problems arise.Your Current Medications: Your current home medications have been reviewed.CONTINUE TAKING THE FOLLOWING MEDICATIONS:cloNIDine HCl Oral.Cymbalta Oral : Capsule Delayed Release Particles 30 mg, 1 capsule daily.Strattera Oral.Xanax Oral.CONTINUE TAKING THE FOLLOWING MEDICATIONS UNTIL YOU CHECK WITH YOUR PHYSICIAN:Cyclobenzaprine HCl Oral.Prescription Medications:polyethylene glycol 3350 17 gram oral powder packet Take 1 packet once a day for 10 days --Dispense 10 packet. Refills: 0. Substitution permitted.Pharmacy - [id number] - [phone] [facility] ; [place] [address]. .Follow-up:Return to the emergency department as needed. Follow up with your healthcare provider in about twodays if not better. Call for an appointment.Understanding of the discharge instructions verbalized by patient.Follow-up with: Mega Vasquez MD, Gastroenterology, [id number], [facility],[address] [facility], [address], [place], [place], [facility] Follow up. Call for the next available appoi ntment. Reason for referral: evaluation and treatment. 2 General Instructions [facility] Emergency Department [address] [place] [address] Phone #: ext- [phone] 02/11/2020 20:30 [id number] Sex: F : 1985 Age: 34y ADDITIONAL INFORMATIONUnknown Causes of Abdominal Pain (Female)The exact cause of your belly (abdominal) pain is not clear. This does not mean that this is somethingto worry about. Everyone likes to know the exact cause of the problem. But sometimes with bellypain, there is no clear-cut cause, and this could be a good thing. The good news is that yoursymptoms can be treated, and you will feel better.Your condition does not seem serious now. But sometimes the signs of a serious problem may takemore time to appear. For this reason, it is important for you to watch for any new symptoms,problems, or worsening of your condition.Over the next few days, the abdominal pain may come and go. Or it may be constant. Other commonsymptoms can include nausea and vomiting. Sometimes it can be difficult to tell if you feel nauseous.You may just feel bad and not connect that feeling to nausea. Constipation, diarrhea, and a fever maygo along with the pain.The pain may continue even if treated correctly over the following days. Depending on how things go,sometimes the cause can become clear and may need more or different treatment. Additionalevaluations, medicines, or tests may also be needed. 3 General Instructions [facility] Emergency Department [address] [place] [address] Phone #: ext- [phone] 02/11/2020 20:30 Patient: ARPITA PRYOR Sex: F : 1985 Age: 34yHome [facility] healthcare provider may prescribe medicine for pain, symptoms, or an infection. Follow thehealthcare provider's instructions for taking these medicines.General care Rest as much as you can until your next exam. No strenuous activities. Try to find positions that ease discomfort. A small pillow placed on the abdomen may help relieve pain. Something warm on your abdomen (such as a heating pad) may help, but be careful not to burn yourself.Diet Don't force yourself to eat, especially if having cramps, vomiting, or diarrhea. Water is important so you don't get dehydrated. Soup may also be good. Sports drinks may also help, especially if they are not too acidic. Don't drink sugary drinks as this can make things worse. Take liquids in small amounts. Don't guzzle them. Caffeine sometimes makes the pain and cramping worse. Don't take dairy products if you have vomiting or diarrhea. Don't eat large amounts at a time. Wait a few minutes between bites. Eat a diet low in fiber (called a low-residue diet). Foods allowed include refined breads, white rice, fruit and vegetable juices without pulp, tender meats. These foods will pass more easily through the intestine. Don't have whole-grain foods, whole fruits and vegetables, meats, seeds and nuts, fried or fatty foods, dairy, alcohol and spicy foods until your symptoms go away.Follow-up careFollow up with your healthcare provider, or as advised, if your pain does not begin to improve in thenext 24 hours.Call [phone] if any of these occur: Trouble breathing Confusion 4 General Instructions [facility] Emergency Department [address] [place] [address] Phone #: ext- [phone] 02/11/2020 20:30 Patient: ARPITA PRYOR Sex: F : 1985 Age: 34y Fainting or loss of consciousness Rapid heart rate SeizureWhen to seek medical adviceCall your healthcare provider right away if any of these occur: Pain gets worse or moves to the right lower abdomen New or worsening vomiting or diarrhea Swelling of the abdomen Unable to pass stool for more than 3 days Fever of 100.4F (38C) or higher, or as directed by your healthcare provider. Blood in vomit or bowel movements (dark red or black color) Yellow color of eyes and skin (jaundice) Weakness, dizziness Chest, arm, back, neck, or jaw pain Unexpected vaginal bleeding or missed period Can't keep down liquids or water and you are getting dehydrated [id number] [employer]. [address] [place] [address]. All rights reserved. This information is not intended as asubstitute for professional medical care. Always follow your healthcare professional's instructions. You have been given the following additional information: Abdominal Pain, Unknown Cause, (Female) Do not work for two days.(Electronically signed by Lior Murray P.A.-C 02/12/2020 00:54) Name Value Range Interpretation Code Description Data Krysten rce(s) Supporting Document(s) ID Date Data Source [id number] 02/11/2020 09:01:00 PM EDT [facility] 1 Clinical Report - Nurses [facility] Emergency Department [address] [place] [address] Phone #: ext- [phone] 02/11/2020 20:30 Patient: ARPITA PRYOR Sex: F : 1985 Age: 34yTRIAGEHistorian: patient.Triage time: 20:31 02/11/2020. Acuity: LEVEL 3.Chief Complaint: ABDOMINAL PAIN.Alert. No acute distress.( pt c/o left hip and lower abd pain. pt had injections with her doc about 2 wks ago, c/o pain since then. ptstates she had problems with the last round of kenalog and had digestive problems, yet was given kenalogagain and now has problems pooping, including nausea and decreased appetite.).SEPSIS SCREEN: Sepsis Screen negative. No suspected or confirmed signs of infection present. --20:407/October, R.N.20:31 02/11/20. BP: 122/92. MAP: 102. HR: 46. RR: 18. O2 saturation: 100%. Temp: 97.7 F. Pain levelnow: 02/05. --20:40 7, October , R.N.Weight: 70.3 kg stated. Height/Length: 67 inches Per Patient. BMI: 24.3. --20:30 02/11/20, October, R.N.MedicationsCymbalta Oral (Capsule Delayed Release Particles 30 mg) 1 capsule, daily. --20:35 02/11/20October,R.N. cloNIDine HCl Oral. --20:35 02/11/20October, R.N. Strattera Oral. --20:35 02/11/20October, R.N. Cyclobenzaprine HCl Oral. --20:35 02/11/20October, R.N. Xanax Oral. --20:35 02/11/20October, R.N.AllergiesLatex. --20:35 02/11/20October, R.N.Metal. --20:35 02/11/20October, R.N.Adhesive. --20:35 02/11/20October, R.N.NSAIDs. --21:13 02/11/20 Lizbeth Chavarria-CMorphine and Related. Mild(jittery) --21:14 02/11/20 Joey ChavarriaC.PROBLEMS:Labral tear.Major depressive disorder.Ptsd.abral tear.Diverticulosis. --20:38 02/11/20October, RJose AntonioN. 2 Clinical Report - Nurses [facility] Emergency Department [address] [place] [address] Phone #: ext- [phone] 02/11/2020 20:30 Patient: ARPITA PRYOR Sex: F : 1985 Age: 34y ADDITIONAL SURGERIES: Ankle. Appendectomy. Cholecystectomy. Ectopic pregnany. Elbow. Hand. --20:38 02/11/20October, R.N. History PAST MEDICAL HX: Last normal menstrual period- unknown. SOCIAL HX: Never smoker. Occasional alcohol use. History of drug use. (medical marijuana). She was offered HIV testing but declined. She has not traveled outside the [place] Infectious disease exposure: No infectious disease exposure. (covid screen neg). Patient is not a known carrier of tuberculosis, hepatitis, HIV, MRSA or VRE. Patient is not a known carrier of CRE. SELF HARM ASSESSMENT: Self harm assessment was performed. The patient answered "no" to the question(s) "Have you recently felt down, depressed, or hopeless?", "Do you have thoughts of harming or killing yourself?", "Do you have a plan for harming or killing yourself?", "Have you recently had thoughts about harming or killing others?", "Do you have any dangerous items in your possession?", "Have you noticed less interest or pleasure in doing things?", "Are you here because you tried to hurt yourself?" and "Have you ever tried to hurt yourself before today?". ABUSE ASSESSMENT: Abuse assessment. yes. The patient had positive responses to the question(s) "Do you feel safe in your home?". No report of abuse. --20:40 02/11/20 Shawna Kimmie, R.N. NUTRITIONAL RISK ASSESSMENT: The nutritional risk assessment revealed no deficiencies. FUNCTIONAL ASSESSMENT: Functional assessment: no impairments noted. LEARNING NEEDS ASSESSMENT: The learning needs assessment revealed no barriers. FALL RISK ASSESSMENT: Fall risk assessment completed. No risk factors identified. SKIN INTEGRITY ASSESSMENT: Skin integrity risk assessment completed. No skin integrity risk identified. --20:40 02/11/20 Shawna Kimmie, R.N. Interventions To treatment room. --20:40 02/11/20 Shawna, Kimmie, R.N.NURSING PROGRESS NOTESPatient gowned. Head of bed elevated. Reassurance given. Two patient identifiers checked. Bedplaced in lowest position. Brakes of bed on. Patient ready for evaluation- ED physician and PA notified.--20:40 02/11/20 Shawna Kimmie, R.N. 3 Clinical Report - Nurses [facility] Emergency Department [address] [place] [address] Phone #: ext- [phone] 02/11/2020 20:30 Patient: ARPITA PRYOR Sex: F : 1985 Age: 34y 21:32 02/11/2020 Ativan (LORazepam) IVP 1 mg given over 3 minute(s) via site #1. Allergies verified and confirmed 5 rights. IV patency established. IV site checked: no pain, redness, or swelling. IV flushed thoroughly pre- and post- medication administration. Information reviewed with patient including sedative warning. Verbalizes understanding. --21:37 02/11/20 Gaby Castellano R.N. 21:36 02/11/2020 Site #1 started via IV in the left antecubital space with an 20g angiocath, with aseptic technique and good blood return; one attempt. Saline lock flushed with 10 mL saline. --21:36 02/11/20 Gaby Castellano R.N. 21:37 02/11/2020 Started bag #1 1000 mL IV Fluids NS; bolus of 500 mL wide open via site #1 via IV pump. Allergies verified and confirmed 5 rights. IV patency established. IV site checked: no pain, redness, or swelling. IV flushed thoroughly pre- and post-medication administration. Information reviewed with patient. Verbalizes understanding. --21:37 02/11/20 Gaby Castellano R.N. 21:37 02/11/2020 Zofran (Ondansetron HCl) IVP 4 mg given over 5 minute(s) via site #1. Allergies verified and confirmed 5 rights. IV patency established. IV site checked: no pain, redness, or swelling. IV flushed thoroughly pre- and post- medication administration. Information reviewed with patient. Verbalizes understanding. --21:37 02/11/20 Gaby Castellano R.N. EKG time: (22:13 02/11/2020). EKG was performed by a nurse and shown to the PA. --22:02/11/20 Kimmie Matos R.N. ( pt feeling better, IVF infused, pt up to restroom to obtain urine sample). --23:02/11/20 Shawna KimmieDerrick 23:02/11/20. BP: 112/80. MAP: 90. HR: 50. RR: 18. O2 saturation: 100%. Pain level now: 5/10. --23:16 02/11/20 Kimmie Matos R.N. Patient ID band checked for patient name and birthdate: patient confirmed. Instructions provided to collect clean catch urine and patient verbalized understanding. Clean catch urine collected with return of yellow-colored clear urine; sample sent to lab for urinalysis. Specimen labeled in the presence of the patient. --23:26 02/11/20 Shawna KimmieDerrickDISPOSITION / DISCHARGE 22:36 02/11/2020 IV Fluids NS via IV site #1 Discontinued: bag #1 infused. Total amount infused: 1000 mL. IV patency established. IV site checked: no pain, redness, or swelling. IV flushed thoroughly. --00:36 02/12/20 Shawna OctoberMaryNJose Antonio 00:36 02/12/2020 Site #1 removed upon discharge. Catheter intact. Bandaid applied. --00:36 02/12/20 Kimmie Matos R.N. Condition at departure: improved and stable. No learning barriers present. Discharge instructions provided and reviewed with the patient. Reviewed medication(s). Treatments reviewed. Work note given. Patient verbalized understanding. Written instructions provided in [place]. The patient was discharged by the physician architectural administrative assistant. She was discharged home and accompanied by floor technician. She 4 Clinical Report - Nurses [facility] Emergency Department [address] [place] [address] Phone #: ext- [phone] 02/11/2020 20:30 Patient: ARPITA PRYOR Sex: F : 1985 Age: 34y left ambulatory and via private vehicle. Office Clinician driving. --00:37 02/12/20 Shawna KimmieMaryNJose Antonio 00:36 02/12/20. BP: 108/80. MAP: 89. HR: 54. RR: 16. O2 saturation: 100%. Temp: 97.1 F. Pain level now: 0/10. --00:37 02/12/20 Kimmie Matos R.N.Locked/Released at 02/12/2020 00:37 by Kimmie Matos R.N. Name Value Range Interpretation Code Description Data Krysten rce(s) Supporting Document(s) ID Date Data Source [id number] 02/11/2020 09:01:00 PM EDT [facility] 1 Clinical Report - Physicians/Mid Levels [facility] Emergency Department [address] [place] [address] Phone #: ext- [phone] 02/11/2020 20:30 Patient: ARPITA PRYOR Sex: F : 1985 Age: 34y Time Seen: 21:08 02/11/2020. Arrived- By private vehicle. Historian- patient.HISTORY OF PRESENT ILLNESS Chief Complaint: ABDOMINAL PAIN. This started 6 weeks ago and is still present (worse 2 weeks ago). It is described as "pain", cramping and diffuse. No radiation. It is described as generalized in location. The patient has had nausea and loss of appetite. No vomiting or diarrhea. (Pt presents to the ER with multiple complaints, but specifically diffuse abdominal pain, weight gain and constipation over the last 6 weeks after been given a Kenalog injection on 12/31/2019. Pt sts she was given another kenalog injection on 01/14/2020 which worsened her symptoms. Pt sts she tried a laxative last Sunday which helped a little. Pt had a BM today but it was small and liquidy. Pt sts she discontinued all of her medications two weeks ago. Pt alaniz s a hx of colitis and diverticulitis). Similar symptoms previously. Patient has had similar symptoms frequently. Recent medical care: Not recently seen/assessed.REVIEW OF SYSTEMSThe patient has had constipation but not had weight loss. No black stools, hematemesis, difficulty withurination, pain with urination or urinary frequency. No bloody stools, fever, headache, sore throat orblurred vision. No chest pain, difficulty breathing, cough, joint pain or skin rash. No chills or back pain.Last bowel movement- today. All other systems reviewed and are negative.PAST HISTORYSee nurses notes. Problems: Endometriosis. Eptopic . Abdominal Pain. Polycystic Ovary Disease. Other Disease. Dysfunctional Uterine Bleeding. Acute Pain. Constipation. UTI - Urinary Tract Infection. Skin Rash. Neck Pain. Pelvic Pain. Ovarian Cyst. 2 Clinical Report - Physicians/Mid Levels [facility] Emergency Department [address] [place] [address] Phone #: ext- [phone] 02/11/2020 20:30 Patient: ARPITA PRYOR Sex: F : 1985 Age: 34y Labral tear. Major depressive disorder. Ptsd. abral tear. Diverticulosis. Additional Surgeries: Ankle. Ankle surgery. Appendectomy. Cholecystectomy. Ectopic pregnany. Elbow. Elbow surgery. Gallbladder Surgery. Hand. Laparoscopy. Laparoscopy. Left ankle. Left elbow. Tubal removal [05/2016]. Medications: Xanax Oral. Cyclobenzaprine HCl Oral. Strattera Oral. cloNIDine HCl Oral. Cymbalta Oral (Capsule Delayed Release Particles 30 mg) 1 capsule, daily. Allergies: Adhesive. Latex. Metal. Morphine and Related. Mild(jittery) NSAIDs.SOCIAL HISTORYNever smoker. Occasional alcohol use. History of drug use: marijuana.ADDITIONAL NOTESThe nursing notes have been reviewed.PHYSICAL EXAMVital Signs: 02/11/2020 20:31 BP: 122/92. MAP: 102. HR: 46. RR: 18. O2 saturation: 100%. Temp: 97.7F. Pain level now: 7/10. Have been reviewed. Bradycardic. Oxygen saturation normal. 3 Clinical Report - Physicians/Mid Levels [facility] Emergency Department [address] [place] [address] Phone #: ext- [phone] 02/11/2020 20:30 Patient: ARPITA PRYOR Sex: F : 1985 Age: 34y Appearance: Alert. Oriented X3. No acute distress. Alert. Eyes: Eyelids appear normal to inspection. Conjunctivae and sclerae appear normal to inspection. Corneas appear normal to inspection. Pupils equal, round and reactive to light. EOMs intact. Periorbital areas appear normal to inspection. ENT: Normal ENT inspection. Airway intact. TM's normal. Ears normal. Nose normal. Nares normal. Pharynx normal. Moist mucous membranes. Uvula midline. Voice normal. Neck: Neck supple and nontender. Full ROM. CVS: Normal heart rate and rhythm. No JVD present. Pulses normal. Capillary refill normal. Strong peripheral pulses. Heart sounds normal. Pulses: right radial 2+; left radial 2+; right dorsalis pedis 2+; left dorsalis pedis 2+; right posterior tibial 2+; left posterior tibial 2+. Respiratory: Chest normal on inspection. No respirator y distress. Unlabored respirations. Lungs clear. Good chest movement. Breath sounds normal and equal. Chest nontender. Abdomen: Normal inspection. Soft. Moderate tenderness in the epigastric area, left side of the abdomen and left lower quadrant. No distention. Skin: Skin warm and dry. Normal skin color. Neuro: Awake. Alert. Oriented X 3. Mood/affect normal. Speech normal. No motor deficit. No sensory deficit. Psych: Oriented X 3. Mood and affect normal. Speech normal. Cognition normal. Thought process and content normal. Insight and judgement normal.LABS, X-RAYS, AND EKGEKG: Bradycardia (46). Marked sinus raad; abnormal ecg. Discussed and reviewed with/by attending. CT Abdomen - Pelvis: CT Abdomen/Pelvis History: abd pain, N/D. hx of d-itits/osis. Accumulated DLP- 647.5 mGy*cm, Estimated DLP-636. HXR697, 75mL, [id number], 09/21. BUN-9, Createnine- .5, GFR >60. Neg Beta Time Out performed. Correct patient with 2 identifiers, type and amount of contrast used, correct body part and side all verified prior to examination. - RLB (Hx) / CORONAL (DICOM Hx) Technique: CT ABD PELVIS W/ IV ONLY Dose length product (mGy-cm): Not provided Reformations: None Contrast: With; ISO 370, 75mL Comparison: No comparison study provided. Findings: Surgical clips noted at cecum are noted consistent with an appendectomy. The large and small bowel loops appear normal. There is no evidence for bowel obstruction, inflammation or pneumatosis. 4 Clinical Report - Physicians/Mid Levels [facility] Emergency Department [address] [place] [address] Phone #: ext- [phone] 02/11/2020 20:30 Patient: ARPITA PRYOR Sex: F : 1985 Age: 34yMild periportal edema of indeterminate etiology.The exam demonstrates a cholecystectomy.There is normal appearing stomach, pancreas and bilateral adrenal glands.Normal appearing spleen is noted.Normal kidneys appearing are noted.Normal appearing bladder is noted.Unremarkable aorta is noted.Findings demonstrate patent celiac artery, superior mesenteric artery, renal arteries, and inferiormesenteric artery.Findings demonstrate patent bilateral common iliac arteries.Findings demonstrate patent bilateral external and internal iliac arteries.Normal appearing uterus is identified.Normal appearing ovaries are not ed.Minimal free fluid in the pelvis is noted and may represent physiologic changes or acute process notwell-visualized.ImpressionMinimal free fluid in the pelvis is noted and may represent physiologic changes or acute process notwell- visualized.Mild periportal edema of indeterminate etiology.Appendectomy.The exam demonstrates a cholecystectomy.Electronically signed on Feb 12, 2020 12:10:45 AM EDT by:Annalisa Champagne, [place] [employer]. The study was interpreted by the radiologist.Laboratory Tests:Troponin-T: (CATHERINE: 02/11/2020 21:23) ( MsgRcvd 02/11/2020 22:22) Final results Test Result Flag Units (Reference) TROPONIN T <0.01 NG/ML (0.00 - 0.10) TROPONIN T0.1 ng/ml Recommended as the clinical threshold value forTroponin T.CT Abd PEL W/ IV Contrast Only: (CATHERINE: 02/11/2020 21:16) ( MsgRcvd 02/12/2020 00:11) Finalresults Exam CT ABD //T// PELVIS W/ [place] [address] ---------NAME--------- NUMBER SEX AGE ADMIT DISC. XRAY# F/C TYPE KONSTANTIN Castro [id number] F 34 02/11/20 [id number] X6B E/R DATE OF : 1985 M/R# [id number] #: [id number] TR-07 LOCATION: EMERGENCY DEPT TRANSCRIBED: 02/12/[address] ABD //T// PELVIS W/ IV ONLY [id number] COMPLETED:02/11/20 23:35 RLB [id number] Reason(s): NO CONTRAST: Pending CMP and HCG: abd pain, N/D. hx of d-itits PHYSICIAN: BRIDGETTE MURRAY CH 5 Clinical Report - Physicians/Mid Levels [facility] Emergency Department [address] [place] [address] Phone #: ext- [phone] 02/11/2020 20:30 Patient: ARPITA PRYOR Sex: F : 1985 Age: 34y ======== R A D I O L O G Y R E P O R T PATIENT HISTORY:abd pain, N/D. hx of d-itits/osis. Accumulated DLP-647.5 mGy*cm, EstimatedDLP-636. TVX416, 75mL, [id number], 09/21. BUN-9, Createnine-.5, GFR >60. Neg BetaTime Out performed. Correct patient with 2 identifiers, type and amount ofcontrast used, correct body part and side all verified prior to examination. - RLB / CORONAL (DICOM Hx)CT Abdomen/PelvisHistory:abd pain, N/D. hx of d- itits/osis. Accumulated DLP-647.5 mGy*cm, EstimatedDLP-636. OGV592, 75mL, [id number], 09/21. BUN-9, Createnine-.5, GFR >60. Neg BetaTime Out performed. Correct patient with 2 identifiers, type and amount ofcontrast used, correct body part and side all verified prior to examination. -RLB (Hx) / CORONAL (DICOM Hx)Technique:CT ABD //T// PELVIS W/ IV ONLYDose length product (mGy-cm): Not providedReformations: NoneContrast: With; ISO 370, 75mLComparison:No comparison study provided.Findings:Surgical clips noted at cecum are noted consistent with an appendectomy.The large and small bowel loops appear normal.There is no evid ence for bowel obstruction, inflammation or pneumatosis.Mild periportal edema of indeterminate etiology.The exam demonstrates a cholecystectomy.There is normal appearing stomach, pancreas and bilateral adrenal glands.Normal appearing spleen is noted.Normal kidneys appearing are noted.Normal appearing bladder is noted.Unremarkable aorta is noted.Findings demonstrate patent celiac artery, superior mesenteric artery, renalarteries, and inferior mesenteric artery.Findings demonstrate patent bilateral common iliac arteries.Findings demonstrate patent bilateral external and internal iliac arteries.Normal appearing uterus is identified.Normal appearing ovaries are noted.Minimal free fluid in the pelvis is noted and may represent physiologic changesor acute process not well-visualized.IMPRESSIONS:Minimal free fluid in the pelvis is noted and may represent physiologic changesor acute process not well- visualized.Mild periportal edema of indeterminate etiology.Appendectomy.The exam demonstrates a cholecystectomy.While performing the above CT examination, radiation dose reduction wasaccomplished utilizing automated exposure control, adjusting of the mA and kVbased on the patient's body size and/or the use of imperative reconstructivetechniques. 6 Clinical Report - Physicians/Mid Levels [facility] Emergency Department [address] [place] [address] Phone #: ext- [phone] 02/11/2020 20:30 Patient: ARPITA PRYOR Sex: F : 1985 Age: 34y Electronically Signed By: Gerson Valentino M.D. , Radiologist Date/Time: 02/12/20 00:.0011.RLB.to EMERGENCY via [facility] w Diff: (CATHERINE: 02/11/2020 21:23) ( MsgRcvd 02/11/2020 22:19) Final results Test Result Flag Units (Reference) CBC W/AUTOMATED DIFF COMPLETE BLOOD COUNT WBC 5.9 10/uL (4.2 - 11.0) RBC 4.01 L 10/uL (4.20 - 5.40) HEMOGLOBIN 12.0 g/dL (12.0 - 16.0) HEMATOCRIT 35.3 L % (37.0 - 47.0) MCV 88.0 fL (81.0 - 101) MCH 29.9 pg (27.0 - 34.0) MCHC 34.0 g/dL (31.0 - 36.0) RDW 12.1 % (11.5 - 14.5) PLATELETS 285 10/uL (150 - 450) MPV 8.9 fL (7.4 - 10.4) NEUT 58.7 % (37.0 - 80.0) LYMPH 29.5 % (25.0 - 40.0) MONO 10.0 H % (3.0 - 8.0) EOS 1.4 % (0.0 - 7.0) BASO 0.2 % (0.0 - 2.5) %IG 0.2 H % (0.0 - 0.0) %NRBC 0.0 % (0.0 - 0.0) #NEUT 3.46 10/uL (2.00 - 6.90) #LYMPH 1.74 10/uL (0.60 - 3.40) #MONO 0.59 10/uL (0.00 - 0.90) #EOS 0.08 10/uL (0.00 - 0.70) #BASO 0.01 10/uL (0.00 - 0.20) #IG 0.01 10/uL (0.00 - 0.10) #NRBC 0.00 10/uL (0.00 - 0.00) MANUAL DIFF NOT INDICATED RBC MORPH NOT INDICATEDCMP: (CATHERINE: 02/11/2020 21:23) ( MsgRcvd 02/11/2020 22:36) Final results Test Result Flag Units (Reference) COMPREHENSIVE METABOLIC PANEL COMPREHENSIVE METABOLIC PANEL SODIUM 140 mEq/L (134 - 153) POTASSIUM 3.8 mEq/L (3.6 - 5.0) CHLORIDE 104 mEq/L (98 - 107) CO2 27 MEQ/L (22 - 30) GLUCOSE 87 MG/DL (65 - 110) BUN 9 MG/DL (7 - 21) CREATININE 0.5 L MG/DL (0.7 - 1.5) BUN/CREAT 18 (8 - 27) TOTAL PROTEIN 6.6 G/DL (6.3 - 8.2) ALBUMIN 4.3 G/DL (3.9 - 5.0) GLOBULIN 2.3 L GM/DL (2.4 - 3.2) A/G RATIO 1.9 (0.8 - 2.0) CALCIUM 9.0 MG/DL (8.4 - 10.2) TOTAL BILI <0.7 MG/DL (0.2 - 1.3) ALKALINE PHOS 47 U/L (38 - 126) 7 Clinical Report - Physicians/Mid Levels [facility] Emergency Department [address] [place] [address] Phone #: ext- [phone] 02/11/2020 20:30 Patient: ARPITA PRYOR Sex: F : 1985 Age: 34y SGOT/AST 13 U/L (5 - 40) SGPT/ALT 13 U/L (7 - 56) ANION GAP 9.0 mmol/L (8.0 - 16.0) AGE 34 yrs NON-AA GFR >60 mL/min AFR AMER GFR >60 mL/min Male GFR Interprentation 20-49 yrs >60 mL/min Normal 50-59 yrs >56 mL/min Normal 60-69 yrs >49 mL/min Normal 70-79yrs >42 mL/min Normal 80 and above >35 mL/min Normal Female GFR Interpretation 20-39 yrs >60 mL/min Normal 40-49 yrs >58 mL/min Normal 50-59 yrs >51 mL/min Normal 60-69 yrs >45 mL/min Normal 70-79 yrs >39 mL/min Normal 80 and above >32 mL/min Normal Lipase: (CATHERINE: 02/11/2020 21:23) ( [facility] 02/11/[facility] 22:36) Final results Test Result Flag Units (Reference) LIPASE 271 H U/L (13 - 60) Urinalysis: (CATHERINE: 02/11/2020 23:25) ( [facility] 02/11/[facility] 23:56) Final results Test Result Flag Units (Reference) URINALYSIS URINALYSIS SOURCE Clean Catch COLOR yellow (NORMAL: Yello CLARITY cloudy (NORMAL: Clear SPEC GRAVITY 1.010 (1.001 - 1.030 pH 8 (5 - 9) GLUCOSE NORM (NORMAL: Negat BILIRUBIN NEG (NORMAL: Negat KETONE NEG (NORMAL: Negat PROTEIN NEG (NORMAL: Negat NITRITE NEG (NORMAL: Negat BLOOD NEG (NORMAL: Negat LEUK EST NEG (NORMAL: Negat UROBILINOGEN NOR (less than 1.0 MICROSCOPIC See Below EPITHELIAL FEW (NORMAL: NONE MUCOUS Trace (NORMAL: NONE AMORPH SED 1+ (NORMAL: NONE Beta-HCG, Qual Serum: (CATHERINE: 02/11/2020 21:23) ( MsgRcvd 02/11/2020 22:05) Final results Test Result Flag Units (Reference) HCG SERUM QUAL NEGATIVE (NORMAL: NEGAT HCG SERUM QL REENTER NEGATIVE (NORMAL: NEGAT { KIT LOT # [id number] ){ KIT EXP DATE 05.11.21 ){ PROCEDURAL CONTROL VALID ).PROGRESS AND PROCEDURESCourse of Care: NAD, AOx3, interacting well and appropriately, no use of accessory muscle, able tospeak full sentences, stable, non-toxic looking. Noted raad, but asymptomatic. Normal BP. Will monitor. 8 Clinical Report - Physicians/Mid Levels [facility] Emergency Department [address] [place] [address] Phone #: ext- [phone] 02/11/2020 20:30 Patient: ARPITA PRYOR Sex: F : 1985 Age: 34yEnter room and pt lying peacefully in bed in NAD. Patient stable. Denies any new issues, concerns, orcomplaints.PE demos NV intact b/l UE and LE. Ntoed TTP of hte L abd and upper gastric. Hx of diverticulitis/-chelsey.Sts has been eating nuts and seeds. ? contstipation. Will obtina labs and imaging for furhter eval.Pending resutls.23:33 02/11/20. Walk by room and noted that pt is sleeping peacefully in bed in NAD. Pending results.Reviewed PRESS OPERATOR ASSISTANT.This report was requested by: Lior Murray Reference #: [id number]' PrescriptionsPatient Name: Arpita PryorBirth Date: 1985Address[address], [place] [address]Sex: FemaleRx Written Rx Dispensed Drug Quantity Days Supply Prescriber Name Payment Method Bkfjmrzcg78/25/2019 04/24/2019 hydrocodone-acetaminophen 5-325 mg tablet 15 5 Jmaia Grissom [facility]16[facility]/18/2019 04/21/2019 hydrocodone-acetaminophen 5-325 mg tablet 6 2 David Demarco)Medicaid [facility] #16004/18/2019 04/19/2019 hydrocodone-acetaminophen 5-325 mg tablet 12 3 Wendy Merchant (YULI) [facility] #16[facility]/27/2019 03/27/2019 tramadol hcl 50 mg tablet 15 3 Paul Jin [facility] Medicaid [facility] #03/09/2019 phentermine 37.5 mg tablet 30 30 Jersey Jack MD [facility] #16Patient Name: Arpita PryorBirth Date: 1985Address: [address] [place], [place] [address]Ccr: FemaleRx Written Rx Dispensed Drug Quantity Days Supply Prescriber Name Payment Method Lklmabhnm28/08/2020 01/10/2020 alprazolam 0.5 mg tablet 10 30 Phinney, Erin Medicaid [facility] [id number] #89294412/09/2019 alprazolam 0.5 mg tablet 10 30 Phinney, Erin Medicaid [facility] [id number] #21745610/17/2019 alprazolam 0.5 mg tablet 10 10 Phinney, Erin Medicaid [facility] Fmgrscgg51-2536 #29311709/22/2019 phentermine 37.5 mg capsule 30 30 Jersey Jack MD [facility] [id number] #[id number] resutls. Discussed with attendign.Enter room and patient lying peacefully in bed in NAD. Patient stable. Denies any new issues, concerns,or complaints. 9 Clinical Report - Physicians/Mid Levels [facility] Emergency Department [address] [place] [address] Phone #: [phone]- [phone] 02/11/2020 20:30 Patient: ARPITA PRYOR Sex: F : 1985 Age: 34y Discussed results with pt. Discussed tx plan with pt. Discussed and counseled on stable condition. Discussed importance of a f/u with PCP. Discussed return to ER criteria. Answered their questions. Indicates and verbalizes that they understand, agree, and will comply with above. Denies any new questions or concerns. Patient has capacity to understand. Discharge decision based on the following: patient's condition is stable; patient's exam is stable; social support is adequate; transportation is available; follow-up is available. Discussed of OTC Motrin and Tylenol to control inflammation and pain management. Informed to follow directions on bottle that are appropriate for age and/or weight. Discussed case with health care provider (Bridgette). Disposition: Discharged home in good and improved condition. Condition: good and stable.CLINICAL IMPRESSION Acute generalized abdominal pain of unknown cause.INSTRUCTIONS Take Tylenol (Acetaminophen) or Motrin (Ibuprofen) as needed for fever control. Take medication according to label instructions. Do not work for two days. Drink plenty of fluids. Warnings: Further evaluation is necessary. GENERAL WARNINGS: Return or contact your physician immediately if your condition worsens or changes unexpectedly, if not improving as expected, or if other problems arise. Your Current Medications: Your current home medications have been reviewed. CONTINUE TAKING THE FOLLOWING MEDICATIONS: cloNIDine HCl Oral. Cymbalta Oral : Capsule Delayed Release Particles 30 mg, 1 capsule daily. Strattera Oral. Xanax Oral. CONTINUE TAKING THE FOLLOWING MEDICATIONS UNTIL YOU CHECK WITH YOUR PHYSICIAN: Cyclobenzaprine HCl Oral. Prescription Medications: polyethylene glycol 3350 17 gram oral powder packet Take 1 packet once a day for 10 days -- Dispense 10 packet. Refills: 0. Substitution permitted. Pharmacy - [facility] - [address] ; [place] [address]. Phone: [phone] Clinical Report - Physicians/Mid Levels [facility] Emergency Department [address] [place], [place] [address] Phone #: ext- [phone] 02/11/2020 20:30 Patient: ARPITA PRYOR Sex: F : 1985 Age: 34y [phone] . Follow-up: Return to the emergency department as needed. Follow up with your healthcare provider in about two days if not better. Call for an appointment. Understanding of the discharge instructions verbalized by patient. Follow-up with: Mega Vasquez MD, Gastroenterology, [id number], [facility], [address] [place] [address], [address], [place], [facility] Follow up. Call for the next available appointment. Reason for referral: evaluation and treatment.(Electronically signed by Lior Murray P.A.-C 02/12/2020 00:54) Name Value Range Interpretation Code Description Data Krysten rce(s) Supporting Document(s) ID Date Data Source [id number] 02/12/2020 12:10:00 [place] [address] ---------NAME--------- NUMBER SEX AGE ADMIT DISC. XRAY# F/C TYPE KONSTANTIN Castro [id number] F 34 02/11/20 [id number] X6B E/R DATE OF : 1985 M/R# [id number] #: [id number] TR-07 LOCATION: EMERGENCY DEPT TRANSCRIBED: 02/12/[address] ABD //T// PELVIS W/ IV ONLY [id number] COMPLETED:02/11/20 23:35 RLB [id number] Reason(s): NO CONTRAST: Pending CMP and HCG: abd pain, N/D. hx of d-itits PHYSICIAN: BRIDGETTE MURRAY CH = R A D I O L O G Y R E P O R T PATIENT HISTORY:abd pain, N/D. hx of d-itits/osis. Accumulated DLP-647.5 mGy*cm, EstimatedDLP-636. IYR005, 75mL, [id number], 09/21. BUN-9, Createnine-.5, GFR >60. Neg BetaTime Out performed. Correct patient with 2 identifiers, type and amount ofcontrast used, correct body part and side all verified prior to examination. -RLB / CORONAL (DICOM Hx)CT Abdomen/PelvisHistory:abd pain, N/D. hx of d-itits/osis. Accumulated DLP-647.5 mGy*cm, EstimatedDLP-636. MWJ100, 75mL, [id number], 09/21. BUN-9, Createnine-.5, GFR >60. Neg BetaTime Out performed. Correct patient with 2 identifiers, type and amount ofcontrast used, correct body part and side all verified prior to examination. -RLB (Hx) / CORONAL (DICOM Hx)Technique:CT ABD //T// PELVIS W/ IV ONLYDose length product (mGy-cm): Not providedReformations: NoneContrast: With; ISO 370, 75mLComparison:No comparison study provided.Findings:Surgical clips noted at cecum are noted consistent with an appendectomy.The large and small bowel loops appear normal.There is no evidence for bowel obstruction, inflammation or pneumatosis.Mild periportal edema of indeterminate etiology.The exam demonstrates a cholecystectomy.There is normal appearing stomach, pancreas and bilateral adrenal glands.Normal appearing spleen is noted.Normal kidneys appearing are noted.Normal appearing bladder is noted.Unremarkable aorta is noted.Findings demonstrate patent celiac artery, superior mesenteric artery, renalarteries, and inferior mesenteric artery.Findings demonstrate patent bilateral common iliac arteries.Findings demonstrate patent bilateral external and internal iliac arteries.Normal appearing uterus is identified.Normal appearing ovaries are noted.Minimal free fluid in the pelvis is noted and may represent physiologic changesor acute process not well-visualized.IMPRESSIONS:Minimal free fluid in the pelvis is noted and may represent physiologic changesor acute process not well-vi sualized.Mild periportal edema of indeterminate etiology.Appendectomy.The exam demonstrates a cholecystectomy.While performing the above CT examination, radiation dose reduction wasaccomplished utilizing automated exposure control, adjusting of the mA and kVbased on the patient's body size and/or the use of imperative reconstructivetechniques.Electronically Signed By:Gerson Valentino M.D. , RadiologistDate/Time: 02/12/20 00:10 02/12/20.0011.RLB.to EMERGENCY via modem Name Value Range Interpretation Code Description Data Krysten rce(s) Supporting Document(s) ID Date Data Source [id number] 02/15/2020 03:09:00 PM EDT [facility] Name Value Range Interpretation Code Description Data Krysten rce(s) Supporting Document(s) CULTURE URINE [facility] spital _CULTURE URINE_$$[id number]$$416511$$640060$$548166$$033058$$529597$$118550$$535068$$578484$$ 998387$$703418$$398139$$884153$$656392$$889880$$119466$$459205$$947793$$041347$$ 823807$$637087$$945511$$414835$$642254$$528379$$088215$$121665 -- Continued on next page --Patient: KONSTANTIN Castro Order: [id number] Page 2Culture: CULTURE URINE Status: Final ==== -- Continued on next page --Patient: KONSTANTIN Castro Order: [id number] Page 2Culture: CULTURE URINE Status: Prelim =====$$[id number]$$[id number] DATE/TIME: 02/15/2020 14:06Culture: CULTURE URINE Status: FinalUrine Culture,Comprehensive: P1No growth in 36 - 48 hours. Previous result entered on 02/14/2020 06:41 ET Specimen has been received and testing has been initiated.P1 Test performed by: [facility] #: [id number] [address] [place] [id number] [facility] [id number] Director : Jaime Cabrera MD NPI #:Designer/Writer : 02/14/20.1215.XMT.SENT REF 02/15/20.1510.XMT.SENT REF ID Date Data Source [id number] 02/11/2020 11:53:00 PM EDT [facility] Name Value Range Interpretation Code Description Data Krysten rce(s) Supporting Document(s) URINALYSIS [facility] URINALYSIS SOURCE Clean Catch [facility] COLOR yellow NORMAL: Yellow [facility] CLARITY cloudy NORMAL: Clear [facility] Specific gravity of Urine by Test strip 1.010 1.001 - 1.030 [facility] pH 8 5 - 9 [facility] Glucose [Mass/volume] in Urine by Test strip NORM NORMAL: Negat prashant [facility] Bilirubin.total [Presence] in Urine by Test strip NEG NORMAL: Negative [facility] Ketones [Presence] in Urine by Test strip NEG NORMAL: Negative [facility] Protein [Mass/volume] in Urine by Test strip NEG NORMAL: Negat prashant [facility] Nitrite [Presence] in Urine by Test strip NEG NORMAL: Negative [facility] BLOOD NEG NORMAL: Negative [facility] Leukocyte esterase [Presence] in Urine by Test strip NEG ADOLFO L: Negative [facility] Urobilinogen [Mass/volume] in Urine by Test strip NOR less millicent n 1.0 mg/dL [facility] MICROSCOPIC See Below [facility] EPITHELIAL FEW NORMAL: NONE SEEN [facility] Mucus [Presence] in Urine sediment by Light microscopy Trace NORMAL: NONE SEEN [facility] Amorphous sediment [Presence] in Urine sediment by Light julia roscopy 1+ NORMAL: NONE SEEN [facility] ID Date Data Source [id number] 02/11/2020 10:36:00 PM EDT [facility] Name Value Range Interpretation Code Description Data Krysten rce(s) Supporting Document(s) Lipase [Enzymatic activity/volume] in Serum or Plasma 271 U/L 13 - 60 H [facility] ID Date Data Source [id number] 02/11/2020 10:36:00 PM EDT [facility] Name Value Range Interpretation Code Description Data Krysten rce(s) Supporting Document(s) COMPREHENSIVE METABOLIC PANEL [facility] COMPREHENSIVE METABOLIC PANEL Sodium [Moles/volume] in Serum or Plasma 140 mEq/L 134 - 153 [facility] Potassium [Moles/volume] in Serum or Plasma 3.8 mEq/L 3.6 - 5.0 [facility] Chloride [Moles/volume] in Serum or Plasma 104 mEq/L 98 - 107 [facility] Carbon dioxide, total [Moles/volume] in Serum or Plasma 27 MEQ/L 22 - 30 [facility] Glucose [Mass/volume] in Serum or Plasma 87 MG/DL 65 - 110 [facility] BUN 9 MG/DL 7 - 21 [facility] Creatinine [Mass/volume] in Serum or Plasma 0.5 MG/DL 0.7 - 1.5 L [facility] BUN/CREAT 18 8 - 27 [facility] Protein [Mass/volume] in Serum or Plasma 6.6 G/DL 6.3 - 8.2 [facility] Albumin [Mass/volume] in Serum or Plasma 4.3 G/DL 3.9 - 5.0 [facility] Globulin [Mass/volume] in Serum by calculation 2.3 GM/DL 2.4 - 3.2 L [facility] A/G RATIO 1.9 0.8 - 2.0 [facility] Calcium [Mass/volume] in Serum or Plasma 9.0 MG/DL 8.4 - 10.2 [facility] Bilirubin.total [Mass/volume] in Serum or Plasma <0.7 MG/DL 0.2 - 1.3 [facility] Alkaline phosphatase [Enzymatic activity/volume] in Serum or Plasma 47 U/L 38 - 126 [facility] Aspartate aminotransferase [Enzymatic activity/volume] in Serum or Plasma 13 U/L 5 - 40 [facility] Alanine aminotransferase [Enzymatic activity/volume] in Seru m or Plasma 13 U/L 7 - 56 [facility] Anion gap 3 in Serum or Plasma 9.0 mmol/L 8.0 - 16.0 [facility] AGE 34 yrs [facility] NON-AA GFR >60 mL/min [facility] ital AFR AMER GFR >60 mL/min [facility] Male GFR In terprentation 20-49 yrs >60 mL/min Normal 50-59 yrs >56 mL/min Normal 60-69 yrs >49 mL/min Normal 70-79yrs >42 mL/min Normal 80 and above >35 mL/min Normal Female GFR Interpretation 20-39 yrs >60 mL/min Normal 40-49 yrs >58 mL/min Normal 50-59 yrs >51 mL/min Normal 60-69 yrs >45 mL/min Normal 70-79 yrs >39 mL/min Normal 80 and above >32 mL/min Normal ID Date Data Source [id number] 02/11/2020 10:22:00 PM EDT [facility] Name Value Range Interpretation Code Description Data Krysten rce(s) Supporting Document(s) TROPONIN T <0.01 NG/ML 0.00 - 0.10 [facility] ospital TROPONIN T0.1 ng/ml Recommended as the c linical threshold value Jimena Echavarria. ID Date Data Source [id number] 02/11/2020 10:19:00 PM EDT [facility] Name Value Range Interpretation Code Description Data Krysten rce(s) Supporting Document(s) CBC W/AUTOMATED DIFF [facility] COMPLETE BLOOD COUNT Leukocytes [#/volume] in Blood by Automated count 5.9 10^3/uL 4.2 - 1 1.0 [facility] Erythrocytes [#/volume] in Blood by Automated count 4.01 10^6/uL 4. 20 - 5.40 L [facility] Hemoglobin [Mass/volume] in Blood 12.0 g/dL 12.0 - 16.0 [facility] Hematocrit [Volume Fraction] of Blood by Automated count 35.3 % 3 7.0 - 47.0 L [facility] Erythrocyte mean corpuscular volume [Entitic volume] by Auto mated count 88.0 fL 81.0 - 101 [facility] Erythrocyte mean corpuscular hemoglobin [Entitic mass] by Automated count 29.9 pg 27.0 - 34.0 [facility] Erythrocyte mean corpuscular hemoglobin concentration [Mass/volume] by Automated count 34.0 g/dL 31.0 - 36.0 [facility] Erythrocyte distribution width [Ratio] by Automated count 12.1 % 11.5 - 14.5 [facility] Platelets [#/volume] in Blood by Automated count 285 10^3/uL 150 - 45 0 [facility] Platelet mean volume [Entitic volume] in Blood by Automated count 8.9 fL 7.4 - 10.4 [facility] Neutrophils/100 leukocytes in Blood by Automated count 58.7 % 37. 0 - 80.0 [facility] Lymphocytes/100 leukocytes in Blood by Manual count 29.5 % 25.0 - 40.0 [facility] Monocytes/100 leukocytes in Blood by Automated count 10.0 % 3.0 - 8.0 H [facility] Eosinophils/100 leukocytes in Blood by Automated count 1.4 % 0.0 - 7.0 [facility] Basophils/100 leukocytes in Blood by Automated count 0.2 % 0.0 - 2.5 [facility] %IG 0.2 % 0.0 - 0.0 H [facility] %NRBC 0.0 % 0.0 - [facility] [#/volume] in Blood by Automated count 3.46 10^3/uL 2.00 - 6.90 [facility] Lymphocytes [#/volume] in Blood by Automated count 1.74 10^3/uL 0.60 - 3.40 [facility] Monocytes [#/volume] in Blood by Automated count 0.59 10^3/uL 0.00 - 0.90 [facility] Eosinophils [#/volume] in Blood by Automated count 0.08 10^3/uL 0.00 - 0.70 [facility] Basophils [#/volume] in Blood by Automated count 0.01 10^3/uL 0.00 - 0.20 [facility] #IG 0.01 10^3/uL 0.00 - 0.10 [facility] ospital #NRBC 0.00 10^3/uL 0.00 - 0.00 [facility]spital MANUAL DIFF NOT INDICATED [facility] RBC MORPH NOT INDICATED [facility] spital ID Date Data Source [id number] 02/11/2020 10:04:00 PM EDT [facility] Name Value Range Interpretation Code Description Data Krysten rce(s) Supporting Document(s) HCG SERUM QUAL NEGATIVE NORMAL: NEGATIVE [facility] HCG SERUM QL REENTER NEGATIVE NORMAL: NEGATIVE [facility] { KIT LOT # [id number] ){ KIT EXP DATE 05.11.21 ){ PROCEDURAL CONTROL VALID ) ID Date Data Source [id number] 01/23/2020 12:00:00 AM EDT [facility] ology Imaging Conrad Carlson MD Patient Name: MAHAD [id number] [facility] 1985[facility] [place] [address] Date of Exam: 01/23/2020#: Fax: [phone] EXAM: ARTHROCENTESIS OF LARGE JOINT W/O USLEFT HIP INJECTION:The procedure was performed by BERNICE Mercado under the generalsupervision of Dr. Lyon.The benefits and risks including, but not limited to pain, infection,bleeding, and anaphylaxis were explained to the patient and informedconsent was obtained.The left femoral neck was localized using fluoroscopic guidance. The skinwas prepped and draped in a sterile fashion. 1% Lidocaine was used as alocal anesthetic. Using fluoroscopic guidance, a #22 gauge spinal needlewas inserted and advanced to the femoral neck. 0.5 cc of Omnipaque 300 wasinjected to verify placement. 6 cc of a solution containing 5 cc of 1%Lidocaine and 1 cc of Kenalog 40 mg was injected into the joint space. Theneedle was then removed.The patient tolerated the procedure well and there were no immediatecomplications.Fluoroscopy time was 3 seconds at 3 pulses/second. This is equal to 0.75seconds continuous fluoroscopy time which is a 75% reduction in radiation.FIDELINA Britton/Aleksandr you for referring ARPITA PRYOR to our office. Electronically Signed - RICKI LYON MD 01/26/20 21:43 Name Value Range Interpretation Code Description Data Krysten rce(s) Supporting Document(s) ID Date Data Source [id number] 01/23/2020 12:00:00 AM EDT [facility] MD Patient Name: MAHAD [id number] [facility] 1985[facility] [address] Date of Exam: 01/23/2020#: Fax: [phone] EXAM: ARTHROCENTESIS OF LARGE JOINT W/O USLEFT HIP INJECTION:The procedure was performed by BERNICE Mercado under the generalsupervision of Dr. Lyon.The benefits and risks including, but not limited to pain, infection,bleeding, and anaphylaxis were explained to the patient and informedconsent was obtained.The left femoral neck was localized using fluoroscopic guidance. The skinwas prepped and draped in a sterile fashion. 1% Lidocaine was used as alocal anesthetic. Using fluoroscopic guidance, a #22 gauge spinal needlewas inserted and advanced to the femoral neck. 0.5 cc of Omnipaque 300 wasinjected to verify placement. 6 cc of a solution containing 5 cc of 1%Lidocaine and 1 cc of Kenalog 40 mg was injected into the joint space. Theneedle was then removed.The patient tolerated the procedure well and there were no immediatecomplications.Fluoroscopy time was 3 seconds at 3 pulses/second. This is equal to 0.75seconds continuous fluoroscopy time which is a 75% reduction in radiation.Ricki Lyon, FIDELINA/yusufcTzak you for referring ARPITA PRYOR to our office. Electronically Signed - RICKI LYON MD 01/26/20 21:43 Name Value Range Interpretation Code Description Data Krysten rce(s) Supporting Document(s) ID Date Data Source [id number] 12/30/2019 12:00:00 AM EDT [facility] Imaging Conrad Carlson MD Patient Name: ARPITA PRYOR [id number] [facility] 1985[facility] [place] [address] Date of Exam: 12/30/2019#: Fax: [phone] EXAM: ARTHROCENTESIS OF LARGE JOINT W/O USCLINICAL INFORMATION: Osteoarthritis of the left hip.The procedure was performed by Emerita Rojas [facility], under the directsupervision of Dr. Riggs.The benefits and risks including but not limited to pain, infection,bleeding and anaphylaxis were explained to the patient as well as thepotential therapeutic benefits of the procedure and the possibility of anunsuccessful procedure, and an informed consent was obtained. Directlyprior to the start of the procedure, a formal time-out was completed.The left femoral neck joint space was localized using fluoroscopicguidance. The skin was prepped and draped in a sterile fashion.Approximately 5 cc of 1% Lidocaine 10 mg/ml was used as a local anesthetic. Using fluoroscopic guidance, a #22 gauge spinal needle was inserted andadvanced into the left femoral neck joint space. Approximately 1 cc ofOmnipaque 300 mg/ml was injected to verify placement. A 6 cc solutioncontaining 2 cc of 1% Lidocaine 10 mg/ml, 2 cc 0.5% Bupivacaine 5 mg/ml and2 cc of DepoMedrol 80 mg/ml was injected into the joint space. The needlewas then removed.The patient tolerated the procedure well and there were no immediatecomplications.Fluoroscopic images are performed with last image hold technology. Theseimages require no additional radiation to acquire.Fluoroscopy time was 16 seconds at 3 pulses/second. This is equal to 4seconds continuous fluoroscopy time which is a 75% reduction in radiation.Dictated by BERNICE Heart, with Dr. Riggs.SUKHDEEP Valdes/Aleksandr you for referring ARPITA PRYOR to our office. Electronically Signed - TONIE RIGGS DO 12/30/19 16:32 Name Value Range Interpretation Code Description Data Krysten rce(s) Supporting Document(s) ID Date Data Source [id number] 12/30/2019 12:00:00 AM EDT [facility] Imaging Conrad Carlson MD Patient Name: ARPITA PRYOR [id number] [facility] Date of : 1985[place] [address] Date of Exam: 12/30/2019#: Fax: [phone] EXAM: ARTHROCENTESIS OF LARGE JOINT W/O USCLINICAL INFORMATION: Osteoarthritis of the left hip.The procedure was performed by [facility], under the directsupervision of Dr. Riggs.The benefits and risks including but not limited to pain, infection,bleeding and anaphylaxis were explained to the patient as well as thepotential therapeutic benefits of the procedure and the possibility of anunsuccessful procedure, and an informed consent was obtained. Directlyprior to the start of the procedure, a formal time-out was completed.The left femoral neck joint space was localized using fluoroscopicguidance. The skin was prepped and draped in a sterile fashion.Approximately 5 cc of 1% Lidocaine 10 mg/ml was used as a local anesthetic. Using fluoroscopic guidance, a #22 gauge spinal needle was inserted andadvanced into the left femoral neck joint space. Approximately 1 cc ofOmnipaque 300 mg/ml was injected to verify placement. A 6 cc solutioncontaining 2 cc of 1% Lidocaine 10 mg/ml, 2 cc 0.5% Bupivacaine 5 mg/ml and2 cc of DepoMedrol 80 mg/ml was injected into the joint space. The needlewas then removed.The patient tolerated the procedure well and there were no immediatecomplications.Fluoroscopic images are performed with last image hold technology. Theseimages require no additional radiation to acquire.Fluoroscopy time was 16 seconds at 3 pulses/second. This is equal to 4seconds continuous fluoroscopy time which is a 75% reduction in radiation.Dictated by Emerita Rojas, [facility], with Dr. Riggs.SUKHDEEP Valdes/Aleksandr you for referring ARPITA PRYOR to our office. Electronically Signed - TONIE RIGGS DO 12/30/19 16:32 Name Value Range Interpretation Code Description Data Krysten rce(s) Supporting Document(s) ID Date Data Source [id number] 12/30/2019 12:00:00 AM EDT [facility] Imaging Conrad Carlson MD Patient Name: MAHAD [id number] [facility] 1985[facility] [place] [address] Date of Exam: 12/30/2019#: Fax: [phone] EXAM: MRI HIP LEFT WITHOUT CONTRASTCLINICAL INFORMATION: Left hip pain.3T multiplanar MRI imaging of the left hip was obtained using varioussequences.Original exam date 12/30/2019. We have been waiting for prior exams forcomparison. No prior exams have been made available for comparison. Theexamination will be interpreted at this time without priors for comparison.The femoral heads are spherical in shape and symmetric in appearance.There is no hip joint effusion. No abnormal signal is seen in thetrochanteric tendinobursal region of either hip.There is bilateral subchondral acetabular cyst formation. The A9kxzlsvzifep is focal and n umberable. There is no diffuse acetabular orfemoral marrow edema. The sacroiliac joints are within normal limits. Thesignal and morphologic appearance throughout the imaged musculature iswithin normal limits. There is no evidence of a mass or mass effect.IMPRESSION:Bilateral subchondral cyst formation in the acetabulum, left greater thanright. There is a possibility of linear signal change in the labrum. Iflabral pathology is of clinical concern, consider followup with hip MRIarthrography. There is no evidence of diffuse marrow edema or avascularnecrosis.Accredited by the [employer] in MR.SUKHDEEP Valdes/Aleksandr you for referring ARPITA PRYOR to our office. Electronically Signed - TONIE RIGGS DO 01/21/20 15:40 Name Value Range Interpretation Code Description Data Krysten rce(s) Supporting Document(s) ID Date Data Source [id number] 10/15/2019 12:00:00 AM EDT [facility] Imaging Kurt Holloway MD Patient Name: KIKI PRYOR8 [facility] Date [place] : 1985[place] [address] Date of Exam: 10/15/2019PH#: Fax: [phone] EXAM: FOREARM LEFT X-RAYCLINICAL INFORMATION: Disability determination.Two views.There is no acute fracture or destructive osseous lesion.SUKHDEEP Valdes/Aleksandr you for referring ARPITA PRYOR to our office. Electronically Signed - TONIE RIGGS DO 10/15/19 15:20 Name Value Range Interpretation Code Description Data Krysten rce(s) Supporting Document(s) ID Date Data Source [id number] 10/15/2019 12:00:00 AM EDT [facility] Imaging Kurt Holloway MD Patient Name: [place] PRYOR [facility] Date of : 1985[place] [address] Date of Exam: 10/15/2019#: Fax: [phone] EXAM: ELBOW LEFT COMPLETE X-RAYCLINICAL INFORMATION: Disability determination.Four views.Comparison 04/22/11.Multiple views of the left elbow show no fracture, dislocation, or jointeffusion.There is a tiny smoothly marginated ossific density just distal to thelateral humeral epicondyle and two ossific densities are seen adjacent to arather small radial head. These findings are likely secondary to chronicchanges from old injury. When compared to the prior exam of 04/22/11, therehas been no significant change in the appearance of these findings.SUKHDEEP Valdes/Aleksandr you for referring ARPITA PRYOR to our office. Electronically Signed - TONIE RIGGS DO 10/15/19 15:20 Name Value Range Interpretation Code Description Data Krysten rce(s) Supporting Document(s) ID Date Data Source [id number] 10/15/2019 12:00:00 AM EDT [facility] Imaging Kurt Holloway MD Patient Name: ARPITA PRYOR518 [facility] [place] [address] Date of Exam: 10/15/2019#: Fax: [phone] EXAM: ANKLE COMPLETE LEFT (MIN 3 VIEWS) X-RAYCLINICAL INFORMATION: Disability determination.Four views.There are no prior left ankle xrays for comparison.There is no evidence of an acute fracture or destructive osseous lesion.The mortise is within normal limits.SUKHDEEP Valdes/Aleksandr you for referring ARPITA PRYOR to our office. Electronically Signed - TONIE RIGGS DO 10/15/19 15:20 Name Value Range Interpretation Code Description Data Krysten rce(s) Supporting Document(s) ID Date Data Source [id number] 09/05/2019 10:14:00 AM EST [facility] ([facility]) Name Value Range Interpretation Code Description Data Krysten rce(s) Supporting Document(s) Antinuclear Antibodies Direct Laboratory test result [facility] ([facility]) Performed at: [facility] [address] [id number] Designer/Writer: Lynette Guillen MD, Phone: [phone] Performed at: [facility] [address] [id number] Designer/Writer: Nilam Sandoval MD, Phone: [phone] ID Date Data Source [id number] 09/05/2019 10:14:00 AM EST [facility] ([facility]) Name Value Range Interpretation Code Description Data Krysten rce(s) Supporting Document(s) Pyridoxine [Mass/volume] in Serum or Plasma 21.2 ug/L 2.0-32.8 [facility] ([facility]) Specimen Comment: Test(s) 851732-Sryfkfu E(Alpha Tocopherol); 787967- Specimen Comment: Vitamin E(Gamma Tocopherol); 408274-Csbbfkt B6; 644638- Specimen Comment: Vit. B1, Whole Blood Specimen Comment: was developed and its performance characteristics Specimen Comment: determined by [facility]. It has not been cleared or approved Specimen Comment: by the Food and Drug Administration. Thiamine [Mass/volume] in Blood 154.5 nmol/L 66.5-200.0 [facility] ([facility] ) Specimen Comment: Test(s) 902587-Pvlrmim E(Alpha Tocopherol); 757274- Specimen Comment: Vitamin E(Gamma Tocopherol); 808775-Eoagxoe B6; 396854- Specimen Comment: Vit. B1, Whole Blood Specimen Comment: was developed and its performance characteristics Specimen Comment: determined by [facility]. It has not been cleared or approved Specimen Comment: by the Food and Drug Administration. ID Date Data Source [id number] 09/05/2019 10:14:00 AM EST [facility] ([facility]) Name Value Range Interpretation Code Description Data Krysten rce(s) Supporting Document(s) Vitamin E(Alpha Tocopherol) 12.0 mg/L 5.9-19.4 [facility] ([facility]) Vitamin E(Gamma Tocopherol) 0.8 mg/L 0.7-4.9 [facility] ([facility] ) Reference intervals for alpha and gamma- tocopherol determined from National Health and Nutrition Examination Survey, 7912-5762. Individuals with alpha-tocopherol levels less than 5.0 mg/L are considered vitamin E deficient. ID Date Data Source [id number] 09/05/2019 10:14:00 AM EST [facility] ([facility] ) Name Value Range Interpretation Code Description Data Krysten rce(s) Supporting Document(s) Rheumatoid factor [Units/volume] in Serum or Plasma Laboratory test result [facility] ([facility]) ID Date Data Source [id number] 09/05/2019 10:14:00 AM EST [facility] ([facility]) Name Value Range Interpretation Code Description Data Krysten rce(s) Supporting Document(s) Folate 16.3 ng/mL [facility] ([facility], ) FOLATE NORMAL RANGE NORMAL GREATER THAN 5.4 NG/ML INDETERMINATE 3.4-5.4 NG/ML DEFICIENT LESS THAN 3.4 NG/ML Vitamin B12 Level 460 pg/mL [facility] ([facility], ) VITAMIN B12 NORMAL RANGE NORMAL 247 - 911 PG/ML INDETERMINATE 211 - 246 PG/ML DEFICIENT LESS THAN 211 PG/ML ID Date Data Source [id number] 09/05/2019 10:14:00 AM EST [facility] ([facility] ) Name Value Range Interpretation Code Description Data Krysten rce(s) Supporting Document(s) Thyroid Stimulating Hormone 2.110 uIU/ML 0.358-3.740 [facility] ([facility]) Free T4 1.05 ng/dL 0.76-1.46 [facility] ([facility], ) ID Date Data Source [id number] 09/05/2019 10:14:00 AM EST [facility] ([facility]) Name Value Range Interpretation Code Description Data Krysten rce(s) Supporting Document(s) Albumin % 63.7 % 55.8-66.1 [facility] ([facility] ) Yefag-9-Vmirrqmr % 3.7 % 2.9-4.9 [facility] ([facility], ) Woou-7-Orhcdrqsl % 5.9 % 4.7-7.2 [facility] ([facility], ) Saofm-0-Bmfieiltd % 8.3 % 7.1-11.8 [facility] ([facility], ) Gamma Globulin % 14.7 % 11.1-18.8 [facility] ([facility], ) Vsor-7-Cjhfzmsij % 3.7 % 3.2-6.5 [facility] ([facility]) Albumin 4.78 GM/DL 3.29-5.55 [facility] Bdsui-4-Ezhhcxyqe 0.28 GM/DL 0.17-0.41 [facility] ([facility]) Jjgig-9-Udrbtnizf 0.62 GM/DL 0.42-0.99 [facility] ([facility]) Jlde-1-Jepbcvmin 0.28 GM/DL 0.19-0.55 [facility] ([facility]) Qmgu-8-Cwpvcqtmd 0.44 GM/DL 0.28-0.60 [facility] ([facility]) Gamma Globulins 1.10 GM/DL 0.65-1.58 [facility] ([facility]) Total Protein 7.5 GM/DL 6.4-8.2 [facility] Spep Interpretation Laboratory test result [facility] ([facility]) NO M-SPIKE(S)NOTED. Laboratory test finding (navigational concept) Laboratory test result [facility] ([facility]) REV'D BY Lili MCGRATH ID Date Data Source [id number] 09/05/2019 10:14:00 AM EST [facility] Name Value Range Interpretation Code Description Data Krysten rce(s) Supporting Document(s) PTT Lupus Type Anticoag Screen 0.8 0-1.2 [facility] ([facility]) RESULT IS LESS THAN 1.2, NO FURTHER TEST ING INDICATED. INTERPRETATION This test is to screen those individuals that may have a circulating lupus anticoagulant. If the LA Screen test is normal, and/or the LA Confirm test is normal, the presence of a Lupus Anticoagulant (LA) is unlikely, but does not completely exclude LA-like activity. If both tests or the LA Confirm test are elevated, the specimen will be reflexed to a hexagonal phase phospholipid test through our reference laboratory for confirmation. A positive hexagonal phase phospholipid is indicative of LA. A negative hexagonal phase phospholipid test may indicate a coagulation factor deficiency or a specific inhibitor. ID Date Data Source [id number] 09/05/2019 10:14:00 AM EST [facility] ([facility]) Name Value Range Interpretation Code Description Data Krysten rce(s) Supporting Document(s) Hemoglobin A1c 4.8 % [facility] ([facility]) REFERENCE RANGES: 4.5-5.6% NORMAL 5.7-6.4% SUGGESTS IMPAIRED GLUCOSE META BOLISM >= 6.5% ABNORMAL Estimated Average Glucose 91 mg/dL 60-110 [facility] ([facility]) ID Date Data Source [id number] 09/05/2019 10:14:00 AM EST [facility] ([facility]) Name Value Range Interpretation Code Description Data Krysten rce(s) Supporting Document(s) Erythrocyte sedimentation rate by 2H Westergren method 3 mm/hr 0-2 0 [facility] ([facility]) Procedure Social History Code Duration Value Status Description Data Source(s ) Smoking 08/10/2020 12:00:00 AM EST Former Smoker completed [facility] Smoking 06/15/2020 12:00:00 AM EST Former Smoker completed Former Smoker [facility]) Smoking 06/15/2020 12:00:00 AM EST Former Smoker completed Former Smoker [facility] ([facility]) Smoking 06/15/2020 12:00:00 AM EST Former Smoker completed Former Smoker [facility]) Smoking 06/14/2020 12:00:00 AM EST Patient is a former smoker completed Patient is a former smoker [facility] ([facility]) Smoking 05/12/2020 12:00:00 AM EDT Former Smoker completed Former Smoker [facility] Smoking 05/12/2020 12:00:00 AM EDT Former Smoker completed Former Smoker [facility] ([facility]) Smoking 05/12/2020 12:00:00 AM EDT Former Smoker completed Former Smoker [facility] ([facility]) Smoking 05/06/2020 12:00:00 AM EDT Former Smoker completed Former Smoker [facility] ([facility]) Smoking 05/05/2020 12:00:00 AM EDT Former Smoker completed Former Smoker [facility]) Vital Signs ID Date Data Source [id number] Name Value Range Interpretation Code Description Data Source(s) Diastolic blood pressure 80 mm[Hg] 80 mm[Hg] [facility]) Systolic blood pressure 113 mm[Hg] 113 mm[Hg] e CW1 ([facility]) Body mass index (BMI) [Ratio] 25.53 kg/m2 25.53 kg/m2 [facility] ([facility]) Body height 67 [in_i] 67 [in_i] [facility] ([facility]) Body weight 73.94 kg 73.94 kg [facility]CW1 ([facility]) Body weight 163 [lb_av] 163 [lb_av] eCW1 ([facility]) Diastolic blood pressure 67 mm[Hg] 67 mm[Hg] [facility]) Systolic blood pressure 125 mm[Hg] 125 mm[Hg] e CW1 ([facility]) Body temperature 97.3 [degF] 97.3 [degF] [facility] ( [facility]) Respiratory rate 18 /min 18 /min eCW1 ([facility]) Heart rate 73 /min 73 /min eCW1 ([facility]) Body mass index (BMI) [Ratio] 25.37 kg/m2 25.37 kg/m2 [facility]CW1 ([facility]) Body height 67 [in_i] 67 [in_i] eCW1 ([facility]) Body weight 162.0 [lb_av] 162.0 [lb_av] eCW1 ([facility]) Body mass index (BMI) [Ratio] 24.6 kg/m2 24.6 k g/m2 [facility] ([facility]) Body height 67 [in_i] 67 [in_i] [facility] ([facility]) 5'7" Body weight 157.00 [lb_av] 157.00 [lb_av] [facility] T ([facility], [facility]) Body temperature 98.3 [degF] 98.3 [degF] [facility] ([facility], [facility]) Oxygen saturation in Arterial blood by Pulse oximetry 98 % 98 % [facility] ([facility]) Respiratory rate 14 /min 14 /min [facility] ( [facility], [facility]) Heart rate 52 /min 52 /min MEDENT ([facility], [facility]) Diastolic blood pressure 72 mm[Hg] 72 mm[Hg] MEDENT ([facility], [facility]) Systolic blood pressure 110 mm[Hg] 110 mm[Hg] M EDENT ([facility], [facility]) Diastolic blood pressure 70 mm[Hg] 70 mm[Hg] eCW[facility] Systolic blood pressure 116 mm[Hg] 116 mm[Hg] e CW1 ([facility]) Body mass index (BMI) [Ratio] 26.9 kg/m2 26.9 k g/m2 eCW1 ([facility]) Body height 67 [in_i] 67 [in_i] eCW1 ([facility]) Body weight 77.93 kg 77.93 kg eCW1 ([facility]) Body weight 171.8 [lb_av] 171.8 [lb_av] eCW1 ([facility]) Diastolic blood pressure 66 mm[Hg] 66 mm[Hg] eCW1 ([facility]) Systolic blood pressure 113 mm[Hg] 113 mm[Hg] e CW1 ([facility]) Body temperature 97.0 [degF] 97.0 [degF] eCW1 ( [facility]) Respiratory rate 18 /min 18 /min eCW1 ([facility]) Heart rate 56 /min 56 /min eCW1 ([facility]) Body mass index (BMI) [Ratio] 26.56 kg/m2 26.56 kg/m2 eCW1 ([facility]) Body height 67 [in_i] 67 [in_i] eCW1 ([facility]) Body weight 169.6 [lb_av] 169.6 [lb_av] eCW1 ([facility]) Body mass index (BMI) [Ratio] 25.0 kg/m2 25.0 k g/m2 MEDENT ([facility]) Body weight 155.00 [lb_av] 155.00 [lb_av] MEDEN T ([facility]) Body height 66 [in_i] 66 [in_i] MEDENT ([facility]) 5'6" Body temperature 96.0 [degF] 96.0 [degF] MEDENT ([facility]) Diastolic blood pressure 60 mm[Hg] 60 mm[Hg] eCW1 ([facility]) Systolic blood pressure 110 mm[Hg] 110 mm[Hg] e CW1 ([facility]) Body mass index (BMI) [Ratio] 25.06 kg/m2 25.06 kg/m2 eCW1 ([facility]) Body height 67 [in_us] 67 [in_us] eCW1 ([facility]) Body weight Measured 160 [lb_av] 160 [lb_av] eC W1 ([facility]) Patient Treatment Plan of Care Planned Activity Planned Date Details Description Data Source (s) cetirizine hydrochloride 10 MG Oral Tablet [Zyrtec] 06/16/20 12:00:00 AM EST eCW1 ([facility]) cetirizine hydrochloride 10 MG Oral Tablet [Zyrtec] 06/16/20 12:00:00 AM EST eCW1 ([facility]) cetirizine hydrochloride 10 MG Oral Tablet [Zyrtec] 06/16/20 12:00:00 AM EST eCW1 ([facility]) Phentermine Hydrochloride 37.5 MG Oral Capsule 05/12/2020 12:00:00 AM EDT eCW1 ([facility]) medroxyprogesterone acetate 10 MG Oral Tablet [Provera ] 05/12/2020 12:00:00 AM EDT eCW1 ([facility]) Phentermine Hydrochloride 37.5 MG Oral Capsule 05/12/2020 12:00:00 AM EDT eCW1 ([facility]) medroxyprogesterone acetate 10 MG Oral Tablet [Provera ] 05/12/2020 12:00:00 AM EDT eCW1 ([facility]) Phentermine Hydrochloride 37.5 MG Oral Capsule 05/12/2020 12:00:00 AM EDT eCW1 ([facility]) medroxyprogesterone acetate 10 MG Oral Tablet [Provera ] 05/12/2020 12:00:00 AM EDT eCW1 ([facility]) Diclofenac Sodium 0.01 MG/MG Topical Gel [Voltaren] 05/06/20 12:00:00 AM EDT eCW1 ([facility]) medroxyprogesterone acetate 10 MG Oral Tablet [Provera ] 09/22/2019 12:00:00 AM EST eCW1 ([facility]) Phentermine Hydrochloride 37.5 MG Oral Capsule 09/22/2019 12:00:00 AM EST eCW1 ([facility]
[2020-09-22] MEDS ORDERED: NS 1,000 ML IV ONE (03:00)
--- OUTSIDE RECORDS SUMMARY | 2020-09-22 03:19 | CCD ---
Author Author [facility] Organization [facility] Address Unknown Phone Unavailable Support Name Relationship Address Phone GENA PENNINGTON Next Of Kin [address] [place] [address] Eladia Man Next Of Kin [address] [place] [address] Cami Rueda Next Of Kin [address] [place], [place] [id number] Lorraine Dasilva MD Next Of [address] [id number] [facility] [place] [address] ARTURO ESPAÑA Next Of Kin [address] [place] [address] L[place] [address] CONVERGYS Next Of Kin [address] [place] [address] STREAM Next Of Kin [address] [place] [address] RCIO Next Of Kin [address] [place] [address] UNEMPLOYED Next Of Kin [address] [place] [address] NO REG CNTR FOR INDEP LIVING Next Of Kin [address] [place] [address] RCIL Next [place] [address] UNK SSV* Next Of Kin [address] [place] [address] SKH* Next Of Kin [address] [place] [address] [place] [address] UN UE Next Of Kin Unknown Unavailable SELF EMPLOYED Next Of Kin [address] [place] [address] [facility] Next Of Kin Unknown Unavaila ble [place] LULU Next Of Kin [address] [facility] [address] [place] [address] SMC* Next Of Kin [address] [place] [address] KYA MARTE Next Of Kin [address] [place] [address] LESLEY PRYOR Next Of Kin [address] [place] [address] LESLEY PRYOR [facility] [address] [place] [address] Unavailable Care Team Providers Care Pie Maker Machine Name Role Phone Matilda Allen Unavailable Unavailable [...] Carlos MD Unavailable Unavailable Kervin Graves Unavailable [phone] Kervin Graves Unavailable [phone] Alex Graveson Unavailable [phone] Ely, Kervin Unavailable [phone] Kervin Graves Unavailable [phone] Scozzari, K Demetra PA Unavailable Unavailable Scozzari, [...] Conrad LEE Unavailable Unavailable Jefferson, Maria Luz VISUALIZATION DEVELOPER Unavailable Unavailable Jefferson, Maria Luz VISUALIZATION DEVELOPER Unavailable Unavailable Jefferson, Maria Luz VISUALIZATION DEVELOPER Unavailable Unavailable Jefferson, Maria Luz VISUALIZATION DEVELOPER Unavailable Unavailable Jefferson, Maria Luz VISUALIZATION DEVELOPER Unavailable Unavailable Jefferson, Maria Luz VISUALIZATION DEVELOPER Unavailable Unavailable Jefferson, Maria Luz VISUALIZATION DEVELOPER Unavailable Unavailable Jefferson, Maria Luz VISUALIZATION DEVELOPER Unavailable Unavailable Jefferson, Maria Luz VISUALIZATION DEVELOPER Unavailable Unavailable Jefferson, Maria Luz VISUALIZATION DEVELOPER Unavailable Unavailable Jefferson, Maria Luz VISUALIZATION DEVELOPER Unavailable Unavailable Fish, B Conrad LEE Unavailable [...] Unavailable TURRIN, MARLON Unavailable Unavailable Gokey, Brittney SHEET CUTTER Unavailable Unavailable Gokey, Brittney SHEET CUTTER Unavailable Unavailable Gokey, Brittney SHEET CUTTER Unavailable Unavailable Gokey, Brittney SHEET CUTTER Unavailable Unavailable Gokey, Brittney SHEET CUTTER Unavailable Unavailable Gokey, Brittney SHEET CUTTER Unavailable Unavailable Gokey, Brittney SHEET CUTTER Unavailable Unavailable Gokey, Brittney SHEET CUTTER Unavailable Unavailable Gokey, Brittney SHEET CUTTER Unavailable Unavailable Gokey, Brittnye SHEET CUTTER Unavailable Unavailable Gokey, Brittney SHEET CUTTER Unavailable Unavailable Gokey, Brittney SHEET CUTTER Unavailable Unavailable Gokey, Brittney SHEET CUTTER Unavailable Unavailable Gokey, Brittney SHEET CUTTER Unavailable Unavailable Gokey, Brittney SHEET CUTTER Unavailable Unavailable Gokey, Brittney SHEET CUTTER Unavailable Unavailable Gokey, Brittney SHEET CUTTER Unavailable Unavailable Gokey, Brittney SHEET CUTTER Unavailable Unavailable Gokey, Brittney SHEET CUTTER Unavailable Unavailable DIBBEN, S WENDY PA Unavailable Unavailable DIBBEN, S WENDY PA Unavailable Unavailable DIBBEN, S WENDY PA Unavailable Unavailable DIBBEN, S WENDY PA Unavailable Unavailable DIBBEN, S WENDY PA Unavailable Unavailable DIBBEN, S WENDY PA Unavailable Unavailable DIBBEN, S WENDY PA Unavailable Unavailable DIBBEN, S WENDY PA Unavailable Unavailable DIBBEN, S WENDY PA Unavailable Unavailable DIBBEN, S WEDNY PA Unavailable Unavailable DIBBEN, S WENDY PA [...] Unavailable ROSAMARIA, Sylvia THOMAS MD Unavailable Unavailable Rick ANAND MD Unavailable Unavailable ARACELI B YADIRA MD Unavailable Unavailable ARACELI B YADIRA MD Unavailable Unavailable ARACELI B YADIRA MD Unavailable Unavailable ARACELI B YADIRA MD Unavailable Unavailable GREENONDINA B YADIRA MD Unavailable Unavailable GREENKY B YADIRA MD Unavailable Unavailable GREENKY B YADIRA MD Unavailable Unavailable GREENONDINA B YADIRA MD Unavailable Unavailable GREENONDINA B YADIRA MD Unavailable Unavailable ARACELI B YADIRA MD Unavailable Unavailable ARACELI B YADIRA MD Unavailable Unavailable GREENONDINA B YADIRA MD Unavailable Unavailable GREENKY, B [...] B YADIRA MD Unavailable Unavailable Eladia Jin SHEET CUTTER SHEET CUTTER Unavailable Unavailable Amie, Gloria Hicks MD Unavailable [...] Amie, Gloria Hicks MD Unavailable Unavailable Amie, C Kurt LEE Unavailable Unavailable NO, PCP Unavailable Unavailable Re-disclosure [...] is protected by Article 27-F of the [place] State Public Health law. If you continue you may have access to information: Regarding HIV / AIDS; Provided by facilities licensed or operated by the [facility] Office of Mental Health; or Provided by the [facility] Office for People With Developmental Disabilities. If such information is present, then the following [facility] mandated warning applies: This information has been [...] law may result in a fine or penitentiary sentence or both. A general authorization for the release of medical or other information is NOT sufficient authorization for further disc losure. Allergies and Adverse Reactions Type Description Substance Reaction Status Data Source(s ) Latex (for allergy use only) Latex (for allergy use only) La debbi (for allergy use only) rash/breathing Active eCW1 ([facility]) Drug Allergy Drug Allergy NKDA MEDENT (No [facility] ) Family History Family Member Name Family Member Gender Family Member Status Date o f Status Description Data Source(s) Unknown Unknown Problem MEDENT ([facility] ) Encounters Encounter Providers Location Date Indications Data Source(s ) Recurring Patient Attender: LEESA VILLA MDReferrer: Conrad nelson MD 08/30/2020 10:32:03 AM EST [facility] Outpatient Attender: eKrvin Graves 08/20 04:44:57 PM EST - 08/20/2020 06:40:52 PM EST DocuTap ([facility] ) Outpatient Attender: Demetra Kowalski PAReferrer: Brittney Singh SHEET CUTTER 08/16/2020 08:48:39 AM EST [facility] [place] [address] [facility] [facility] [facility] [address] 08/10/2020 12:00:00 AM EST eCW1 ([facility]) Outpatient Attender: GERMAN SMITH MDReferrer: Brittney Stapleton VISUALIZATION DEVELOPER 07/20/2020 02:15:40 PM EST [facility] [place] [address] [facility] [facility] [facility] [address] 06/15/2020 12:00:00 AM EST [facility] Outpatient [address] [facility] [place] [address] 06/15/2020 12:00:00 AM EST [facility] Outpatient Attender: Maria Luz Jefferson NP Minna Cox Jaed lopez 06/14/2020 09:30:00 AM EST MEDENT ([facility]) Unknown [address] [facility] [place] [address] 06/11/2020 12:00:00 AM EST [facility]CW1 [facility]) Outpatient Attender: LEESA VILLA MDReferrer: Brittney CARLTON 06/03/2020 08:01:23 AM EST [facility] Outpatient Attender: LEESA VILLA MDReferrer: Brittney CARLTON 05/21/2020 08:20:34 AM EDT [facility] Recurring Patient Attender: LEESA VILLA MDReferrer: Conrad nelson MD 05/18/2020 09:03:52 AM EDT [facility] Outpatient [address] [facility] [address] 05/12/2020 12:00:00 AM EDT [facility]CW1 [facility]) Unknown [address] [facility] [address] 05/11/2020 12:00:00 AM EDT [facility] Unknown [address] [facility] [address] 05/06/2020 12:00:00 AM EDT eCW1 [facility] Outpatient [address] [facility] [place] [address] 05/06/2020 12:00:00 AM EDT eCW1 [facility] Unknown [address] [facility] [place] [address] 05/05/2020 12:00:00 AM EDT [facility]CW1 [facility] Recurring Patient Referrer: Conrad Carlson MD 04/08/2020 04:0 5:02 PM EDT [facility] Recurring Patient Referrer: Conrad Carlson MD 04/08/2020 03:5 0:53 PM EDT [facility] Recurring Patient Referrer: Conrad Carlson MD 03/22/2020 04:1 2:53 PM EDT [facility] Outpatient Attender: YADIRA ANAND MDReferrer: Brittneymoe Singh SHEET CUTTER 03/09/2020 12:24:42 PM EDT [facility] Recurring Patient Referrer: Conrad Carlson MD 03/05/2020 01:5 3:53 PM EDT [facility] Recurring Patient Referrer: Conrad Carlson MD 03/05/2020 01:4 3:36 PM EDT [facility] Outpatient Attender: Conrad Carlson MD Physical Therapy 02/18/2020 0 1:45:00 PM EDT MEDENT ([facility]) Emergency Attender: MARLON ANGELESConsultant: PCP NO 02/11/2020 09:01:00 PM EDT - 02/12/2020 12:37:00 AM EDT [facility] Patient discharged. Recurring Patient Referrer: Conrda Carlson MD 01/28/2020 12:3 7:55 PM EDT [facility] Outpatient Referrer: Conrad Carlson MD 01/28/2020 04:56:00 AM EDT [facility] Outpatient Referrer: Conrad Carslon MD 01/22/2020 02:09:00 PM EDT [facility] Therapy 01/14/2020 1 0:30:00 AM EDT MEDENT ([facility]) Outpatient Attender: Jose Carlos Allen MD Main office - [place] 01/12/2020 11:00:00 AM EDT MEDENT ([facility]) Outpatient Attender: BIANKA CARLTON FP 01/06/2020 07:42:01 P M EDT [facility] Outpatient Referrer: Conrad Carlson MD 12/30/2019 12:36:00 [...] [facility] Outpatient Attender: BIANKA CARLTON 12/27/2019 12:12:53 A M EDT [facility] Outpatient Referrer: Conrad Carlson MD 12/18/2019 09:41:00 AM EDT [facility] Outpatient Referrer: Kurt Holloway MD 12/18/2019 09:39:00 A M EDT [facility] Outpatient Referrer: Kurt Holloway MD 12/18/2019 09:35:00 A M EDT [facility] OFFICE OUTPATIENT NEW 30 MINUTES Attender: Conrad Carlson MD Physic al Therapy 12/10/2019 10:45:00 AM EDT MEDENT ([facility]) Outpatient Attender: Jose Carlos Allen MD Main office - [place] 12/08/2019 12:15:00 PM EDT MEDENT ([facility]) Outpatient Referrer: [...] 10/01/2019 06:28:00 PM EST [facility] [address] [place] [address] 09/22/2019 12:00:00 AM EST eCW1 ([facility]) Outpatient Attender: WENDY ROLDAN CPSCAORT-CPSCNAFT 04/18 04:22:00 PM EDT - 04/18/2019 04:23:00 PM EDT [facility] Patient discharged. Medications Medication Brand Name Start Date Product Form Dose Route Admi nistrative Instructions Pharmacy Instructions Status Indications Reaction Description Data Source(s) cetirizine hydrochloride 10 MG Oral Tablet [Zyrtec] Zy rtec Allergy 10 MG Zyrtec Allergy 10 MG 06/16/2020 12:00:00 AM EST 1.0 {tablet} active Zyrtec Allergy 10 MG eCW1 ([facility]) cetirizine hydrochloride 10 MG Oral Tablet [Zyrtec] Zy rtec Allergy 10 MG Zyrtec Allergy 10 MG 06/16/2020 12:00:00 AM EST 1.0 {tablet} active Zyrtec Allergy 10 MG eCW1 ([facility]) cetirizine hydrochloride 10 MG Oral Tablet [Zyrtec] Zy rtec Allergy 10 MG Zyrtec Allergy 10 MG 06/16/2020 12:00:00 AM EST 1.0 {tablet} active Zyrtec Allergy 10 MG eCW1 ([facility]) cetirizine hydrochloride 10 MG Oral Tablet [Zyrtec] Zy rtec Allergy 10 MG Zyrtec Allergy 10 MG 06/16/2020 12:00:00 AM EST 1.0 {tablet} active Zyrtec Allergy 10 MG eCW1 ([facility]) Phentermine Hydrochloride 37.5 MG Oral Capsule Phenter mine HCl 37.5 MG Phentermine HCl 37.5 MG 05/12/2020 12:00:00 AM EDT 1.0 {capsule} active Phentermine HCl 37.5 MG eCW1 ([facility]) medroxyprogesterone acetate 10 MG Oral Tablet [Provera ] Provera 10 MG Provera 10 MG 05/12/2020 12:00:00 AM EDT 1.0 {tablet_with_food} active Provera 10 MG eCW1 ([facility]) medroxyprogesterone acetate 10 MG Oral Tablet [Provera ] Provera 10 MG Provera 10 MG 05/12/2020 12:00:00 AM EDT 1.0 {tablet_with_food} active Provera 10 MG eCW1 ([facility]) medroxyprogesterone acetate 10 MG Oral Tablet [Provera ] Provera 10 MG Provera 10 MG 05/12/2020 12:00:00 AM EDT 1.0 {tablet_with_food} active Provera 10 MG eCW1 ([facility]) medroxyprogesterone acetate 10 MG Oral Tablet [Provera ] Provera 10 MG Provera 10 MG 05/12/2020 12:00:00 AM EDT 1.0 {tablet_with_food} active Provera 10 MG eCW1 ([facility]) medroxyprogesterone acetate 10 MG Oral Tablet [Provera ] Provera 10 MG Provera 10 MG 05/12/2020 12:00:00 AM EDT 1.0 {tablet_with_food} suspended Provera 10 MG eCW1 ([facility]) Phentermine Hydrochloride 37.5 MG Oral Capsule Phenter mine HCl 37.5 MG Phentermine HCl 37.5 MG 05/12/2020 12:00:00 AM EDT 1.0 {capsule} active Phentermine HCl 37.5 MG eCW1 ([facility]) medroxyprogesterone acetate 10 MG Oral Tablet [Provera ] Provera 10 MG Provera 10 MG 05/12/2020 12:00:00 AM EDT 1.0 {tablet_with_food} active Provera 10 MG eCW1 ([facility]) Phentermine Hydrochloride 37.5 MG Oral Capsule Phenter mine HCl 37.5 MG Phentermine HCl 37.5 MG 05/12/2020 12:00:00 AM EDT 1.0 {capsule} active Phentermine HCl 37.5 MG eCW1 ([facility]) Phentermine Hydrochloride 37.5 MG Oral Capsule Phenter mine HCl 37.5 MG Phentermine HCl 37.5 MG 05/12/2020 12:00:00 AM EDT 1.0 {capsule} active Phentermine HCl 37.5 MG eCW1 ([facility]) Phentermine Hydrochloride 37.5 MG Oral Capsule Phenter mine HCl 37.5 MG Phentermine HCl 37.5 MG 05/12/2020 12:00:00 AM EDT 1.0 {capsule} suspended Phentermine HCl 37.5 MG eCW1 ([facility]) Phentermine Hydrochloride 37.5 MG Oral Capsule Phenter mine HCl 37.5 MG Phentermine HCl 37.5 MG 05/12/2020 12:00:00 AM EDT 1.0 {capsule} active Phentermine HCl 37.5 MG eCW1 ([facility]) Phentermine Hydrochloride 37.5 MG Oral Capsule Phenter mine HCl 37.5 MG Phentermine HCl 37.5 MG 05/12/2020 12:00:00 AM EDT 1.0 {capsule} active Phentermine HCl 37.5 MG eCW1 ([facility]) medroxyprogesterone acetate 10 MG Oral Tablet [Provera ] Provera 10 MG Provera 10 MG 05/12/2020 12:00:00 AM EDT 1.0 {tablet_with_food} active Provera 10 MG eCW1 ([facility]) Diclofenac Sodium 0.01 MG/MG Topical Gel [Voltaren] Voltaren 1 % Voltaren 1 % 05/06/2020 12:00:00 AM EDT active Voltaren 1 % eCW1 ([facility]) Diclofenac Sodium 0.01 MG/MG Topical Gel [Voltaren] Voltaren 1 % Voltaren 1 % 05/06/2020 12:00:00 AM EDT active Voltaren 1 % eCW1 ([facility]) Diclofenac Sodium 0.01 MG/MG Topical Gel [Voltaren] Voltaren 1 % Voltaren 1 % 05/06/2020 12:00:00 AM EDT active Voltaren 1 % eCW1 ([facility]) Diclofenac Sodium 0.01 MG/MG Topical Gel [Voltaren] Voltaren 1 % Voltaren 1 % 05/06/2020 12:00:00 AM EDT active Voltaren 1 % eCW1 ([facility]) tizanidine 2 MG Oral Capsule Tizanidine HCL 01/23/2020 12:00:00 AM EDT ORAL active MEDENT ([facility]) Lidocaine Lidocaine 01/23/2020 12:00:00 AM EDT act prashant MEDENT ([facility]) Cyclobenzaprine hydrochloride 10 MG Oral Tablet Cyclobenzapr ine HCL 01/14/2020 12:00:00 AM EDT ORAL active M EDENT ([facility]) No Active Medications 12/10/2019 12:00:00 AM EDT completed MEDENT ([facility]) Methocarbamol 500 MG Oral Tablet Methocarbamol 12/08/2019 12:00:00 AM EDT ORAL active MEDENT ([facility]) zonisamide 50 MG Oral Capsule Zonisamide 12/08/2019 12:00:00 AM EDT ORAL active MEDENT ([facility]) medroxyprogesterone acetate 10 MG Oral Tablet [Provera ] Provera 10 MG Provera 10 MG 09/22/2019 12:00:00 AM EST 1.0 {tablet_with_food} active Provera 10 MG eCW1 ([facility]) medroxyprogesterone acetate 10 MG Oral Tablet [Provera ] Provera 10 MG Provera 10 MG 09/22/2019 12:00:00 AM EST 1.0 {tablet_with_food} active Provera 10 MG eCW1 ([facility]) medroxyprogesterone acetate 10 MG Oral Tablet [Provera ] Provera 10 MG Provera 10 MG 09/22/2019 12:00:00 AM EST 1.0 {tablet_with_food} suspended Provera 10 MG eCW1 ([facility]) Phentermine Hydrochloride 37.5 MG Oral Capsule Phenter mine HCl 37.5 MG Phentermine HCl 37.5 MG 09/22/2019 12:00:00 AM EST 1.0 {capsule} suspended Phentermine HCl 37.5 MG eCW1 ([facility]) Phentermine Hydrochloride 37.5 MG Oral Capsule Phenter mine HCl 37.5 MG Phentermine HCl 37.5 MG 09/22/2019 12:00:00 AM EST 1.0 {capsule} suspended Phentermine HCl 37.5 MG eCW1 ([facility]) medroxyprogesterone acetate 10 MG Oral Tablet [Provera ] Provera 10 MG Provera 10 MG 09/22/2019 12:00:00 AM EST 1.0 {tablet_with_food} suspended Provera 10 MG eCW1 ([facility]) medroxyprogesterone acetate 10 MG Oral Tablet [Provera ] Provera 10 MG Provera 10 MG 09/22/2019 12:00:00 AM EST 1.0 {tablet_with_food} suspended Provera 10 MG eCW1 ([facility]) Phentermine Hydrochloride 37.5 MG Oral Capsule Phenter mine HCl 37.5 MG Phentermine HCl 37.5 MG 09/22/2019 12:00:00 AM EST 1.0 {capsule} suspended Phentermine HCl 37.5 MG eCW1 ([facility]) medroxyprogesterone acetate 10 MG Oral Tablet [Provera ] Provera 10 MG Provera 10 MG 09/22/2019 12:00:00 AM EST 1.0 {tablet_with_food} suspended Provera 10 MG eCW1 ([facility]) Phentermine Hydrochloride 37.5 MG Oral Capsule Phenter mine HCl 37.5 MG Phentermine HCl 37.5 MG 09/22/2019 12:00:00 AM EST 1.0 {capsule} suspended Phentermine HCl 37.5 MG eCW1 ([facility]) Phentermine Hydrochloride 37.5 MG Oral Capsule Phenter mine HCl 37.5 MG Phentermine HCl 37.5 MG 09/22/2019 12:00:00 AM EST 1.0 {capsule} suspended Phentermine HCl 37.5 MG eCW1 ([facility]) Phentermine Hydrochloride 37.5 MG Oral Capsule Phenter mine HCl 37.5 MG Phentermine HCl 37.5 MG 09/22/2019 12:00:00 AM EST 1.0 {capsule} active Phentermine HCl 37.5 MG eCW1 ([facility]) medroxyprogesterone acetate 10 MG Oral Tablet [Provera ] Provera 10 MG Provera 10 MG 09/22/2019 12:00:00 AM EST active 1 tablet with food eCW1 ([facility]) Phentermine Hydrochloride 37.5 MG Oral Capsule Phenter mine HCl 37.5 MG Phentermine HCl 37.5 MG 09/22/2019 12:00:00 AM EST 1.0 {capsule} active Phentermine HCl 37.5 MG eCW1 ([facility]) Phentermine Hydrochloride 37.5 MG Oral Capsule Phenter mine HCl 37.5 MG Phentermine HCl 37.5 MG 09/22/2019 12:00:00 AM EST 1.0 {capsule} suspended Phentermine HCl 37.5 MG eCW1 ([facility]) medroxyprogesterone acetate 10 MG Oral Tablet [Provera ] Provera 10 MG Provera 10 MG 09/22/2019 12:00:00 AM EST 1.0 {tablet_with_food} active Provera 10 MG eCW1 ([facility]) medroxyprogesterone acetate 10 MG Oral Tablet [Provera ] Provera 10 MG Provera 10 MG 09/22/2019 12:00:00 AM EST 1.0 {tablet_with_food} suspended Provera 10 MG eCW1 ([facility]) medroxyprogesterone acetate 10 MG Oral Tablet [Provera ] Provera 10 MG Provera 10 MG 09/22/2019 12:00:00 AM EST 1.0 {tablet_with_food} suspended Provera 10 MG eCW1 ([facility]) Phentermine Hydrochloride 37.5 MG Oral Capsule Phenter mine HCl 37.5 MG Phentermine HCl 37.5 MG 09/22/2019 12:00:00 AM EST 1.0 {capsule} active Phentermine HCl 37.5 MG eCW1 ([facility]) Phentermine Hydrochloride 37.5 MG Oral Capsule Phenter mine HCl 37.5 MG Phentermine HCl 37.5 MG 09/22/2019 12:00:00 AM EST active 1 capsule eCW1 ([facility]) Insurance Providers Payer name Policy type / Coverage type Policy ID Covered republican ID Covered republican's relationship to estrada Policy Estrada Plan Information [employer] COMMUNITY PLAN MCDO [id number] SP [id number] [facility] Comm Plan Medicaid F [id number] SELF [id number] [facility] Commercial Insurance Co. [id number] Self [id number] [facility](MCAID) O [id number] S [id number] [facility] Comm Plan Medicaid F [id number] SELF [id number] [facility] Commercial F [id number] SELF [id number] UN AMERICHOICE XIX -HMO [id number] [id number] [facility](MCAID) O [id number] S [id number] Managed Care - [facility] Community Plan P [id number] S [id number] Medicaid S [id number] S [id number] [facility] COMMUNITY PL [id number] Unemploye d [id number] UN COMMUNITY PLAN MCDO [id number] SP [id number] [facility] COMMUNITY PL [id number] Unemploye d [id number] [facility] DEZ [id number] S [id number] [facility] [id number] Unemployed [id number] Managed Care - Community Plan [facility] P [id number] S [id number] UN COMMUNITY PLAN MCDO [id number] SP [id number] [facility] Health Maintenance Organization (HMO) [id number] Self [id number] Managed Care - Community Plan [employer] P [id number] S [id number] UN COMMUNITY PLAN [facility] [id number] SP [id number] Managed Care - Community Plan United [employer] P [id number] S [id number] Managed Care - Community Plan [facility] P [id number] S [id number] ANSI-Medicaid [id number] Medicaid S [id number] S [id number] [facility] Dez/MCR Health Maintenance Organization (HMO) [id number] Self [id number] [employer]HC COMMUNITY PLAN MCDO [id number] SP [id number] Medicaid [place] [id number] Self [id number] MEDICAID M [id number] UNHC AMERICHOICE XIX -HMO [id number] 18 [id number] UNHC COMMUNITY PLAN XIX [id number] 18 [id number] MEDICAID [id number] SP [id number] Medicaid [place] [id number] Self [id number] [place] Medigap Part B [id number] Self [id number] [employer] Dez/MCR Medigap Part B [id number] Self [id number] [employer] [facility] Dez/MCR Health Maintenance Organization (HMO) [id number] Self [id number] [facility](MCAID) O [id number] S [id number] Medicaid [place] Medigap Part B [id number] Self [id number] [place] Medigap Part [place] [id number] Self [id number] UNHC COMMUNITY PLAN MCDHMO [id number] SP [id number] D [employer] CHP/Essential Plan P [id number] S [id number] Medicaid Dental S [id number] S [id number] [employer] P [id number] S [id number] UNHC COMMUNITY PLAN MCDHMO [id number] SP [id number] SELF PAY ONLY UNAVAILABLE SP UNAV AILABLE MEDICAID [id number] SP [id number] Medicaid [place] Medigap Part B Self [facility] Dez/MCR Health Maintenance Organization (HMO) Self [facility] Dez/MCR Health Maintenance Organization (HMO) [id number] Self [id number] UNHC COMMUNITY PLAN MCDHMO UNHC COMMUNITY PLAN MCDO Self [place] UNHC COMMUNITY PLAN MCDHMO SELF PAY UNAVAILABLE SP UNAVAILA BLE [facility] Hmo Commercial Self MEDICAID [id number] Estee [id number] [facility] MEDICAID [id number] Estee [id number] [employer] [facility](MCAID) O [id number] S [id number] UNHC COMMUNITY PLAN MCDHMO [id number] SP [id number] SELF PAY ONLY [id number] SP [id number] UNHC COMMUNITY PLAN MCDHMO [id number] SP [id number] UnitedHealth Care Hmo Commercial Self Unitedhealthcare Medicaid Medicaid Self D Managed Care United Healthcare P [id number] S [id number] MEDICAID UNAVAILABLE UNAVAILA BLE N REGION CNTR/INDEP LIVING [id number] SP [id number] OTHER WORKERS COMPENSATION [id number] SP [id number] [facility] [id number] SP [id number] [place]BS [place] PPO [id number]/[phone] [id number] SP [id number] HMO BLUE [id number] SP [id number] Problems, Conditions, and Diagnoses Code Display Name Description Problem Type Effective Dates Data Source(s) N91.2 Amenorrhea Amenorrhea Problem 05/12/2020 12:00:00 AM ED T eCW1 ([facility]) U42610 Latex allergy status Latex allergy status Diagnosis 02/11/2020 09:01:00 PM EDT [facility] H07634 Personal history of urinary (tract) infe ctions Personal history of urinary (tract) infections Diagnosis 02/11/2020 09:01:00 PM EDT [facility] R1084 Generalized abdominal pain Generalized abdominal pain Diagnosis 02/11/2020 09:01:00 PM EDT [facility] Surgeries/Procedures Procedure Description Date Indications Data Source(s) X-Ray Hip Unilateral With Pelvis 2-3 Views 02/18/2020 12:00:00 AM EDT [facility] ([facility]) ELECTROENCEPHALOGRAM W/REC AWAKE&ASLEEP 01/02/2020 12: 00:00 AM EDT [facility] ([facility]) ELECTROENCEPHALOGRAM W/REC AWAKE&ASLEEP 01/02/2020 12: 00:00 AM EDT [facility] ([facility] ) Magnetic Resonance Angiogtaphy Head W/O Contrast Material(S) 12/10/2019 12:00:00 AM EDT [facility] ([facility]) Magnetic Resonance Angiogtaphy Head W/O Contrast Material(S) 12/10/2019 12:00:00 AM EDT [facility] ([facility]) MRI BRAIN BRAIN STEM W/O CONTRAST MATERIAL 12/10/2019 12:00:00 AM EDT [facility] ([facility]) MRI BRAIN BRAIN STEM W/O CONTRAST MATERIAL 12/10/2019 12:00:00 AM EDT [facility] ([facility] ) MRI SPINAL CANAL LUMBAR W/O CONTRAST MATERIAL 09/18/19 12:00:00 AM EST [facility] ([facility] ) MRI SPINAL CANAL LUMBAR W/O CONTRAST MATERIAL 09/18/19 12:00:00 AM EST [facility] ([facility] MRI SPINAL CANAL CERVICAL W/O CONTRAST MATRL 0 12:00:00 AM EST [facility] ([facility] ) MRI SPINAL CANAL CERVICAL W/O CONTRAST MATRL 0 12:00:00 AM EST [facility] ([facility] ) Needle electromyography, each extremity, with related paraspinal areas, when performed, done with nerve conduction, amplitude and latency/velocity study; complete, five or more muscles studied, innervated by three or more nerves or four or more spinal levels (list separately in addition to the code for primary procedure). 09/04/2019 12:00:00 AM EST MEDEN T ([facility] ) Needle electromyography, each extremity, with related paraspinal areas, when performed, done with nerve conduction, amplitude and latency/velocity study; complete, five or more muscles studied, innervated by three or more nerves or four or more spinal levels (list separately in addition to the code for primary procedure). 09/04/2019 12:00:00 AM EST MEDEN T ([facility] ) 87254 Nerve conduction studies 13 or more studies NEW 201209/04/2019 12:00:00 AM EST [facility] ([facility] ) Needle electromyography, each extremity, with related paraspinal areas, when performed, done with nerve conduction, amplitude and latency/velocity study; complete, five or more muscles studied, innervated by three or more nerves or four or more spinal levels (list separately in addition to the code for primary procedure). 09/02/2019 12:00:00 AM EST MEDEN T ([facility] ) Needle electromyography, each extremity, with related paraspinal areas, when performed, done with nerve conduction, amplitude and latency/velocity study; complete, five or more muscles studied, innervated by three or more nerves or four or more spinal levels (list separately in addition to the code for primary procedure). 09/02/2019 12:00:00 AM EST MEDEN T ([facility] ) Needle Electromyography Non Extremity Done With Nerve Conduc tion 09/02/2019 12:00:00 AM EST [facility] ([facility]) 78257 Nerve conduction studies 13 or more studies NEW 201209/02/2019 12:00:00 AM EST [facility] ([facility]) Results ID Date Data Source [id number] 08/20/2020 12:00:00 AM EST [facility] Name Value Range Interpretation Code Description Data Krysten rce(s) Supporting Document(s) SARS coronavirus 2 RNA [Presence] in Res piratory specimen by HEENA with probe detection NEGATIVE [facility] This lab was ordered by Lavern Arce and reported by [facility]. ID Date Data Source [id number] 08/20/2020 12:00:00 AM EST [facility] Name Value Range Interpretation Code Description Data Krysten rce(s) Supporting Document(s) Carestart Rapid COVID Antigen Test Negative [facility] This lab was reported by Lavern mendoza. ID Date Data Source [id number] 08/16/2020 08:48:39 AM EST [facility]Name: Arpita PryorDOB: 1985Provider: RobertgeraldojulioDemetra [...] document was dictated and electronically signed using Selleration software. A reasonable attempt at proof reading has been made to minimize errors. Please call with any questions. Signatures Electronically signed by : Demetra Kowalski PA-C; Aug 13 2020 11:24AM EST (Author) Electronically signed by : Leesa Villa M.D.; Aug 16 2020 8:48AM EST (Author) Name Value Range Interpretation Code Description Data Krysten rce(s) Supporting Document(s) ID Date Data Source [id number] 07/20/2020 02:19:42 PM EST [facility] PCName: Arpita PryorDOB: 1985Provider: Geetha Smith: 07/20/2020 Reason For VisitArpita Pryor is here today for lumbar spine. Patient is seen at the request of Yadira Anand MD. Arpita Pryor is a new patient. LSP XRay 03/05/20 @ [facility]. Patient ambulates with one crutch. Other DOI/DOO: 2018. Patient states the injury occurred while running. The patient has not had a course of physical therapy for greater than 4 weeks. The patient has not had a course of NSAIDs for greater than 4 weeks. 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 Results/DataLumbar MRI date of exam September 18, [...] hercules(s) Supporting Document(s) ID Date Data Source [id number] 06/03/2020 08:01:23 AM EST [facility] PCName: Arpita PryorDOB: 1985Provider: Chucky [...] pain; JOCE = N; [facility]ified [facility] to [facility]; Last Updated By: Zachary James; 06/01/2020 [...] rce(s) Supporting Document(s) ID Date Data Source [id number] 05/21/2020 08:20:34 AM EDT [facility] PCName: Arpita rPyorDOB: 1985Provider: Chucky Villa: 05/18/2020 Reason For VisitSOS Patient Intake: Arpita rPyor is here today for Left hip. Arpita [...] with primary osteoarthritis and left hip bursal bursitisArptia is a 34-year-old lade here for another opinion on her left hip. She has seen a couple of other physicians in the past. Pain is mainly on the left side for at least one year. When she was in [place], she had a cortisone shot on about three separate occasions. The first went well and the second two were in [place] that did not do quite as well. She has some some PT and has been on Meloxicam but it gave her ankle swelling so she gave up and is leery going on nonsteroidals. 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 She used [...] panel test as she has multiple joint [id number] but I do not believe her condition is related to an inflammatory etiology.The risks, benefits and lack of guarantees of hip replacement were discussed but ultimately this is the way she will need to go and there is no huynh.She is considering having another cortisone injection but was not happy with the ones in [place] so she will come back to me to have one done here. Signatures Electronically signed by : Aleah Lenz, ; May 19 2020 10:49AM EST Electronically signed by : Leesa Villa M.D.; May 21 2020 8:20AM EST (Author) Name Value Range Interpretation Code Description Data Krysten rce(s) Supporting Document(s) ID Date Data Source [id number] 03/09/2020 12:24:42 PM EDT [facility] PCName: Arpita BallDOB: 1985Provider: Tiana [...] hard on her groin. She is from [place] and has been seen by [facility]. They worked her [...] scan. I have a note from [facility] but I do [...] hip; JOCE = N; [facility]; Last Updated By: Zachary James; 03/05/2020 3:31:39 PM X-Ray I Hip Pelvis - 1 view (XRays were ordered, obtained and interpreted today in theoffice. Indication: pain/dysfunction.); Status:Complete; Done: 95Nde0083 Perform:SOS29; Due:37Csx3376; Last Updated By:Leigha Batista; 03/05/2020 3:09:29 PM;Ordered; For:Pain of left hip; Ordered By:Yadira Anand;Weight Bearing Status : Weight bearingLaterality: : Left X- Ray I Lumbosacral - 2 views (XRays were ordered, obtained and interpreted today inthe office. Indication: pain/dysfunction.); Status:Complete; Done: 01Ohm1292 Perform:SOS29; Due:21Rbm3118; Last Updated By:Leigha Batista; 03/05/2020 3:09:29 PM;Ordered; For:Pain of left hip; Ordered By:Yadira Anand; Signatures Electronically signed by : Francoise Quinonez, ; Mar 08 2020 12:05PM EST Electronically signed by : Yadira Anand M.D.; Mar 09 2020 12:24PM EST Name Value Range Interpretation Code Description Data Krysten rce(s) Supporting Document(s) ID Date Data Source [id number] 02/13/2020 02:20:00 AM EDT [facility] [address] [place] [address] PHONE: [phone] FAX: [phone] Name ..............: KONSTANTIN Castro Acct Number ...........................: [id number] ROOM. ............: TR-07 Number ............................: [id number] Stay type.........: E/R Discharge Date...............:02/12/20 Admit Date .....: 02/11/20 Admit Phys .............................: BRIDGETTE BIANCHI Date of ..: 1985 Family Phys ...........................: NO PCP Phone..............: [phone] Age.................................:34 Film# ...............:[id number] Sex.................................:F Unsigned transcriptions are preliminary reports and do not represent a medical or legal document EKG 11428 COMPLETE:02/12/20 04:08 VMT [id number] Please See Scanned Results. Name Value Range Interpretation Code Description Data Krysten rce(s) Supporting Document(s) ID Date Data Source [id number] 02/11/2020 09:01:00 PM EDT [facility] 1 OrderSheet [facility] Emergency Department [address] [place] [address] Phone #: ext- [phone] 02/11/2020 20:30 Patient: ARPITA PRYOR Sex: F : 1985 Age: 34yWEIGHT:70.3 kg (S) HEIGHT:67 inches (S) BMI:24.3ALLERGIES: Adhesive, Latex, Metal, Morphine and Related, NSAIDsCHIEF COMPLAINT: abdominal painDIAGNOSIS: Abdominal painLAB ORDERSOrder Description Priority Entered Acknowledged InitialedCBC w Diff STAT 21:13 02/11/2020 21:36 Lior CastellanoNJose Antonio P.A.-C;CMP STAT 21:02/11/2020 21:36 Lior Castellano.N. P.A.-C;Lipase STAT 21:02/11/2020 21:36 Lior Castellano.N. P.A.-C;Urinalysis (Clean STAT 21:02/11/2020 23:26 [facility] Lior HernandezN. P.A.-C;HCG Serum Qual STAT 21:02/11/2020 21:36 Lior [...] N/D. hx of d- itits/osis 2 OrderSheet [facility] Emergency Department [address] [place] [address] Phone #: ext- [phone] 02/11/2020 20:30 Patient: ARPITA PRYOR Sex: F : 1985 Age: 34yMEDICATION/IV/DRIP/FLUID ORDERSOrder Description Priority Entered Acknowledged InitialedNS IV : B olus 500 21:02/11/2020 21:37 Gray,mL, then 100 mL/hr Lior HernandezN. P.A.-C;Zofran IVP 4 mg 21:02/11/2020 21:37 Lior CastellanoN. P.A.-C;Ativan IVP 1 mg 21:02/11/2020 21:37 Gray(HIGH ALERT Lior Orta.GaloMEDICATION) P.A.-C;GENERAL ORDERSOrder Description Priority Entered Acknowledged InitialedNPO 21:02/11/2020 21:36 Lior Castellano R.N. P.A.-C;Saline Lock 21:02/11/2020 21:36 Lior Castellano R.N. P.A.-C;EKG 21:02/11/2020 21:36 Lior Castellano R.N. P.A.-C;Java Application Engineer 21:17 02/11/2020 21:36 Gray,(continuous) Lior Griffin R.N., P.A.-C;Pulse Oximetry 21:17 02/11/2020 21:36 Gray,Continuous Lior Griffin R.N., P.A.-C;[Electronically signed by Kimmie Matos R.N. (00:37 02/12/2020)][Electronically signed by Lior Murray P.A.-C (00:54 02/12/2020)][Electronically locked by Kimmie Matos R.N. (00:37 02/12/2020)] Name Value Range Interpretation Code Description Data Krysten rce(s) Supporting Document(s) ID Date Data Source [id number] 02/11/2020 09:01:00 PM EDT [facility] 1 Medication Reconciliation Report [facility] Emergency Department [address] [place] [address] Phone #: ext- [phone] 02/11/2020 20:30 Patient: [...] 10 packet. Refills: 0. Substitution permitted.Pharmacy - [facility] - [address] ; [place] [address]. FaxNumber: . -- Lior Murray P.A.-C 2 Medication Reconciliation Report [facility] Emergency Department [address] [place] [address] Phone #: ext- [phone] 02/11/2020 20:30 Patient: ARPITA PRYOR Sex: F : 1985 Age: 34y Name Value Range Interpretation Code Description Data Krysten rce(s) Supporting Document(s) ID Date Data Source [id number] 02/11/2020 09:01:00 PM EDT [facility] 1 Medication Administration Record [facility] Emergency Department [address] [place] [address] Phone #: ext- [phone] 02/11/2020 20:30 Patient: ARPITA PRYOR Sex: F : 1985 Age: 34yWeight: 70.3 kgHeight/Length: 67 inBMI: 24.3ALLERGIES: Adhesive, Metal, Latex, Morphine and Related, NSAIDs Date/Time Medication Administered Medication OrderedStart NS [IV] NS IV : Bolus 500 mL, then 50526:37 02/11/2020 Dose: IV Fluids mL/hrMaGaby augillon R.N. Bolus: 500 mL wide open---- Dispensed: 1000 mL bagStop Site: #1 left AC22:36 02/11/2020Kimmie Matos R.N.Given ZOFRAN [IVP] (ONDANSETRON HCL) Zofran IVP 4 mg21:37 02/11/2020 Dose: 4 mg IVPMattGaby mclean R.N. Site: #1 left ACGiven ATIVAN [IVP] (LORAZEPAM) Ativan IVP 1 mg (HIGH ALERT21:32 02/11/2020 Dose: 1 mg IVP MEDICATION)Gaby Castellano R.N. Site: #1 Name Value Range Interpretation Code Description Data Krysten rce(s) Supporting Document(s) ID Date Data Source [id number] 02/11/2020 09:01:00 PM EDT [facility] 1 General Instructions [facility] Emergency Department [address] [place] [address] Phone #: ext- [phone] 02/11/2020 20:30 Patient: [...] 10 packet. Refills: 0. Substitution permitted.Pharmacy - [facility] - [address] ; [place] [address]. .Follow-up:Return to the emergency department as needed. Follow up with your healthcare provider in about twodays if not better. Call for an appointment.Understanding of the discharge instructions verbalized by patient.Follow-up with: Mega Vasquez MD, Gastroenterology, [phone], [facility],[address], [address], [place], [place], [facility] [place] Follow up. Call for the next available appoi ntment. Reason for referral: evaluation and treatment. 2 General Instructions [facility] Emergency Department [address] [place] [address] Phone #: ext- [phone] 02/11/2020 20:30 [id number] Sex: F : 1985 Age: 34y ADDITIONAL [...] may also be needed. 3 General Instructions [facility] Emergency Department [address] [place] [address] Phone #: ext- [phone] 02/11/2020 20:30 Patient: ARPITA PRYOR Sex: F : 1985 [facility] 34[facility] provider may prescribe medicine for pain, [...] begin to improve in thenext 24 hours.Call [phone] if any of these occur: Trouble breathing Confusion 4 General Instructions [facility] Emergency Department [address] [place] [address] Phone #: ext- [phone] 02/11/2020 20:30 Patient: [...] or water and you are getting dehydrated [id number] [employer]. [address] [place] [address]. All rights reserved. This information is not intended as asubstitute for professional medical care. Always follow your healthcare professional's instructions. You have been given the following additional information: Abdominal Pain, Unknown Cause, (Female) Do not work for two days.(Electronically signed by Lior Murray P.A.-C 02/12/2020 00:54) Name Value Range Interpretation Code Description Data Krysten rce(s) Supporting Document(s) ID Date Data Source [id number] 02/11/2020 09:01:00 PM EDT [facility] 1 Clinical Report - Nurses [facility] Emergency Department [address] [place] [address] Phone #: ext- [phone] 02/11/2020 20:30 Patient: [...] --20:35 02/11/20October, R.N. Cyclobenzaprine HCl Oral. --20:35 02/11/20, October, R.N. Xanax Oral. --20:35 02/11/20October, R.N.AllergiesLatex. --20:35 02/11/20October, R.N.Metal. --20:35 02/11/20October, R.N.Adhesive. --20:35 02/11/20October, R.N.NSAIDs. --21:13 02/11/20 Lizbeth Chavarria-CMorphine and Related. Mild(jittery) --21:14 02/11/20 Joey ChavarriaC.PROBLEMS:Labral tear.Major depressive disorder.Ptsd.abral tear.Diverticulosis. --20:38 02/11/20October, RJose AntonioN. 2 Clinical Report - Nurses [facility] Emergency Department [address] [place] [address] Phone #: ext- [phone] 02/11/2020 20:30 Patient: [...] No skin integrity risk identified. --20:40 02/11/20 Kimmie Matos, R.N. Interventions To treatment room. --20:40 02/11/20 Shawna Kimmie, R.N.NURSING PROGRESS NOTESPatient gowned. Head of bed elevated. Reassurance given. Two patient identifiers checked. Bedplaced in lowest position. Brakes of bed on. Patient ready for evaluation- ED physician and PA notified.--20:40 02/11/20 Shawna Kimmie, R.N. 3 Clinical Report - Nurses [facility] Emergency Department [address] [place] [address] Phone #: ext- [phone] 02/11/2020 20:30 Patient: ARPITA PRYOR Sex: F [...] nurse and shown to the PA. --22:02/11/20 Shawna October RLobo ( pt feeling better, IVF infused, pt up to restroom to obtain urine sample). --23:02/11/20 Shawna October RLobo 23:02/11/20. BP: 112/80. MAP: 90. HR: 50. RR: 18. O2 saturation: 100%. Pain level now: 5/10. --23:02/11/20 Kimmie Matos RLobo Patient ID band checked for patient name and birthdate: patient confirmed. Instructions provided to collect clean catch urine and patient verbalized understanding. Clean catch urine collected with return of yellow-colored clear urine; sample sent to lab for urinalysis. Specimen labeled in the presence of the patient. --23:26 02/11/20 Kimmie Matos R.N.DISPOSITION / DISCHARGE 22:36 02/11/2020 IV Fluids NS via IV site #1 Discontinued: bag #1 infused. Total amount infused: 1000 mL. IV patency established. IV site checked: no pain, redness, or swelling. IV flushed thoroughly. --00:36 02/12/20 Shawna OctoberDerrick 00:36 02/12/2020 Site #1 removed upon discharge. Catheter intact. Bandaid applied. --00:36 02/12/20 Kimmie Matos R.N. Condition at departure: improved and stable. No learning barriers present. Discharge instructions provided and reviewed with the patient. Reviewed medication(s). Treatments reviewed. Work note given. Patient verbalized understanding. Written instructions provided in Kyrgyz. The patient was discharged by the physician doctor's assistant. She was discharged home and accompanied by airplane rental clerk. She 4 Clinical Report - Nurses [facility] Emergency Department [address] [place] [address] Phone #: ext- [phone] 02/11/2020 20:30 Patient: ARPITA PRYOR Sex: F : 1985 Age: 34y left ambulatory and via private vehicle. Resin Mixer driving. --00:37 02/12/20 Shawna KimmieDerrick 00:36 02/12/20. BP: 108/80. MAP: 89. HR: 54. RR: 16. O2 saturation: 100%. Temp: 97.1 F. Pain level now: 0/10. --00:37 02/12/20 Kimmie Matos R.N.Locked/Released at 02/12/2020 00:37 by Kimmie Matos R.N. Name Value Range Interpretation Code Description Data Krysten rce(s) Supporting Document(s) ID Date Data Source [id number] 02/11/2020 09:01:00 PM EDT [facility] 1 Clinical Report - Physicians/Mid Levels [facility] Emergency Department [address] [place] [address] Phone #: ext- [phone] 02/11/2020 20:30 Patient: ARPITA PRYOR Sex: F [...] Cyst. 2 Clinical Report - Physicians/Mid Levels [facility] Emergency Department [address] [place] [address] Phone #: ext- [phone] 02/11/2020 20:30 Patient: [...] normal. 3 Clinical Report - Physicians/Mid Levels [facility] Emergency Department [address] [place] [address] Phone #: ext- [phone] 02/11/2020 20:30 Patient: [...] d-itits/osis. Accumulated DLP- 647.5 mGy*cm, Estimated DLP-636. AFP104, 75mL, [id number], 09/21. BUN-9, Createnine- .5, GFR >60. Neg [...] pneumatosis. 4 Clinical Report - Physicians/Mid Levels [facility] Emergency Department [address] [place] [address] Phone #: ext- [phone] 02/11/2020 20:30 Patient: [...] 12, 2020 12:10:45 AM EDT by:Annalisa Champagne, [employer]. The study was interpreted [...] CT ABD //T// PELVIS W/ [place] [address] ---------NAME--------- NUMBER SEX AGE ADMIT DISC. XRAY# F/C TYPE KONSTANTIN Castro [id number] F 34 02/11/20 [id number] X6B E/R DATE OF : 1985 M/R# [id number] #: [id number] TR-07 LOCATION: EMERGENCY DEPT TRANSCRIBED: 02/12/[address] ABD //T// PELVIS W/ IV ONLY [id number] COMPLETED:02/11/20 23:35 RLB [id number] Reason(s): NO CONTRAST: Pending CMP and HCG: abd pain, N/D. hx of d-itits PHYSICIAN: BRIDGETTE MURRAY CH 5 Clinical Report - Physicians/Mid Levels [facility] Emergency Department [address] [place] [address] Phone #: ext- [phone] 02/11/2020 20:30 Patient: ARPITA PRYOR Sex: F : 1985 Age: 34y ======== R A D I O L O G Y R E P O R T PATIENT HISTORY:abd pain, N/D. hx of d-itits/osis. Accumulated DLP-647.5 mGy*cm, EstimatedDLP-636. HPQ336, 75mL, [id number], 09/21. BUN-9, Createnine-.5, GFR >60. Neg BetaTime Out performed. Correct patient with 2 identifiers, type and amount ofcontrast used, correct body part and side all verified prior to examination. - RLB / CORONAL (DICOM Hx)CT Abdomen/PelvisHistory:abd pain, N/D. hx of d- itits/osis. Accumulated DLP-647.5 mGy*cm, EstimatedDLP-636. WSB602, 75mL, [id number], 09/21. BUN-9, Createnine-.5, GFR >60. Neg BetaTime [...] reconstructivetechniques. 6 Clinical Report - Physicians/Mid Levels [facility] Emergency Department [address] [place] [address] Phone #: ext- [phone] 02/11/2020 20:30 Patient: ARPITA PRYOR Sex: F : 1985 Age: 34y Electronically Signed By: Gerson Valentino M.D. , Radiologist Date/Time: 02/12/20 00:.0011.RLB.to EMERGENCY via [facility] w Diff: (CATHERINE: 02/11/2020 21:23) ( MsgRcvd [...] 126) 7 Clinical Report - Physicians/Mid Levels [facility] Emergency Department [address] [place] [address] Phone #: ext- [phone] 02/11/2020 20:30 [id number] Sex: F : 1985 Age: 34y SGOT/AST [...] mL/min Normal Lipase: (CATHERINE: 02/11/2020 21:23) ( [facility] 02/11/[place] 22:36) Final results Test Result Flag Units (Reference) LIPASE 271 H U/L (13 - 60) Urinalysis: (CATHERINE: 02/11/2020 23:25) ( [facility] 02/11/2020 23:56) Final results Test Result Flag [...] NEGATIVE (NORMAL: NEGAT { KIT LOT # [id number] ){ KIT EXP DATE 05.11.21 ){ PROCEDURAL CONTROL VALID ).PROGRESS AND PROCEDURESCourse of Care: NAD, AOx3, interacting well and appropriately, no use of accessory muscle, able tospeak full sentences, stable, non-toxic looking. Noted raad, but asymptomatic. Normal BP. Will monitor. 8 Clinical Report - Physicians/Mid Levels [facility] Emergency Department [address] [place] [address] Phone #: [phone]- [phone] 02/11/2020 20:30 Patient: ARPITA PRYOR Sex: F [...] peacefully in bed in NAD. Pending results.Reviewed OIL G[employer] AND PIPE TESTER.This report was requested by: Lior Murray Reference #: [id number]' PrescriptionsPatient Name: Arpita PryorBirth Date: 1985Address[address], [place] [address]Sex: FemaleRx Written Rx Dispensed Drug Quantity Days Supply Prescriber Name Payment Method Rwtckeaft92/25/2019 04/24/2019 hydrocodone-acetaminophen 5-325 mg tablet 15 5 Jamia Grissom [facility] #16[facility]/18/2019 04/21/2019 hydrocodone-acetaminophen 5-325 mg tablet 6 2 David Demarco)Medicaid [facility] #16004/18/2019 04/19/2019 hydrocodone-acetaminophen 5-325 mg tablet 12 3 Wendy Merchant (YULI) [facility] #16003/27/2019 03/27/2019 tramadol hcl 50 mg tablet 15 3 Paul Jin [facility] Medicaid [facility] #03/09/2019 phentermine 37.5 mg tablet 30 30 Jersey Jack MD [facility] #16Patient Name: Arpita PryorBirth Date: 1985Address: [address] [place], [place] [address]Dtq: FemaleRx Written Rx Dispensed Drug Quantity Days Supply Prescriber Name Payment Method Pzvsxsvoz81/08/2020 01/10/2020 alprazolam 0.5 mg tablet 10 30 Phinney, Erin Medicaid [facility] Icsrrbfm22-5840 #32774412/09/2019 alprazolam 0.5 mg tablet 10 30 Phinney, Erin Medicaid [facility] Bvclmedg15-7753 #82914810/17/2019 alprazolam 0.5 mg tablet 10 10 Phinney, Erin Medicaid [facility] Pgrlzjhz68-4761 #01232309/22/2019 phentermine 37.5 mg capsule 30 30 Jersey Jack MD [facility] Qtxquknn30-6869 #[id number] resutls. Discussed with attendign.Enter room and patient lying peacefully in bed in NAD. Patient stable. Denies any new issues, concerns,or complaints. 9 Clinical Report - Physicians/Mid Levels [facility] Emergency Department [address] [place] [address] Phone #: [phone] 02/11/2020 20:30 Patient: ARPITA PRYOR Sex: F [...] Refills: 0. Substitution permitted. Pharmacy - [facility] - [address] [facility] ; [place] [address]. Phone: [phone] Clinical Report - Physicians/Mid Levels [facility] Emergency Department [address] [place] [address] Phone #: ext- [phone] 02/11/2020 20:30 Patient: ARPITA PRYOR Sex: F : 1985 Age: 34y [phone] . Follow-up: Return to the emergency department as needed. Follow up with your healthcare provider in about two days if not better. Call for an appointment. Understanding of the discharge instructions verbalized by patient. Follow-up with: Mega Vasquez MD, Gastroenterology, [id number], [facility], [address] [place] [address], [address], [place], [facility] [place] Follow up. Call for the next available appointment. Reason for referral: evaluation and treatment.(Electronically signed by Lior Murray P.A.-C 02/12/2020 00:54) Name Value Range Interpretation Code Description Data Krysten rce(s) Supporting Document(s) ID Date Data Source [id number] 02/12/2020 12:10:00 [place] [address] ---------NAME--------- NUMBER SEX AGE ADMIT DISC. XRAY# F/C TYPE KONSTANTIN Castro [id number] F 34 02/11/20 [id number] X6B E/R DATE OF : 1985 M/R# [id number] #: [id number] TR-07 LOCATION: EMERGENCY DEPT TRANSCRIBED: 02/12/[address] ABD //T// PELVIS W/ IV ONLY [id number] COMPLETED:02/11/20 23:35 RLB [id number] Reason(s): NO CONTRAST: Pending CMP and HCG: abd pain, N/D. hx of d-itits PHYSICIAN: BRIDGETTE MURRAY CH = R A D I O L O G Y R E P O R T PATIENT HISTORY:abd pain, N/D. hx of d-itits/osis. Accumulated DLP-647.5 mGy*cm, EstimatedDLP-636. TFT825, 75mL, [id number], 09/21. BUN-9, Createnine-.5, GFR >60. Neg BetaTime Out performed. Correct patient with 2 identifiers, type and amount ofcontrast used, correct body part and side all verified prior to examination. -RLB / CORONAL (DICOM Hx)CT Abdomen/PelvisHistory:abd pain, N/D. hx of d-itits/osis. Accumulated DLP-647.5 mGy*cm, EstimatedDLP-636. WKY399, 75mL, [id number], 09/21. BUN-9, Createnine-.5, GFR >60. Neg BetaTime [...] rce(s) Supporting Document(s) ID Date Data Source [id number] 02/15/2020 03:09:00 PM EDT [facility] Name Value Range Interpretation Code Description Data Krysten rce(s) Supporting Document(s) CULTURE URINE [facility] spital _CULTURE URINE_$$[id number]$$[id number]$$319947$$557278$$967059$$400342$$530089$$533350$$323527$$ 576231$$499306$$233549$$663608$$744159$$477841$$955455$$867795$$136068$$140246$$ 628697$$092771$$565522$$335402$$888483$$529529$$172129$$210385 -- Continued on next page --Patient: KONSTANTIN Castro Order: [id number] Page 2Culture: CULTURE URINE Status: Final ==== -- Continued on next page --Patient: KONSTANTIN Castro Order: [id number] Page 2Culture: CULTURE URINE Status: Prelim =====$$[id number]$$[id number] DATE/TIME: 02/15/2020 14:06Culture: CULTURE URINE Status: FinalUrine Culture,Comprehensive: P1No growth in 36 - 48 hours. Previous result entered on 02/14/2020 06:41 ET Specimen has been received and testing has been initiated.P1 Test performed by: [facility] #: [id number] [address] [place] [address] [id number] [facility] [id number] Director : Jaime Cabrera MD NPI #:[employer] : 02/14/20.1215.XMT.SENT REF 02/15/20.1510.XMT.SENT REF ID Date Data Source [id number] 02/11/2020 11:53:00 PM EDT [facility] Name Value Range Interpretation Code Description Data Krysten rce(s) Supporting Document(s) [facility]IS [facility] URINALYSIS SOURCE Clean Catch [facility] COLOR yellow NORMAL: Yellow [facility] CLARITY cloudy NORMAL: Clear [facility] Specific gravity of Urine by Test strip 1.010 1.001 - 1.030 [facility] pH 8 5 - 9 [facility] Glucose [Mass/volume] in Urine by Test strip NORM NORMAL: Negat prashant [facility] Bilirubin.total [Presence] in Urine by Test strip NEG NORMAL: Negative [facility] Ketones [Presence] in Urine by Test strip NEG NORMAL: Negative [facility] Protein [Mass/volume] in Urine by Test strip NEG NORMAL: Negat prashant [facility] Nitrite [Presence] in Urine by Test strip NEG NORMAL: Negative [facility] BLOOD NEG NORMAL: Negative [facility] Leukocyte esterase [Presence] in Urine by Test strip NEG ADOLFO L: Negative [facility] Urobilinogen [Mass/volume] in Urine by Test strip NOR less millicent n 1.0 mg/dL [facility] MICROSCOPIC See Below [facility] ital EPITHELIAL FEW NORMAL: NONE SEEN [facility] Mucus [Presence] in Urine sediment by Light microscopy Trace NORMAL: NONE SEEN [facility] Amorphous sediment [Presence] in Urine sediment by Light julia roscopy 1+ NORMAL: NONE SEEN [facility] ID Date Data Source [id number] 02/11/2020 10:36:00 PM EDT [facility] Name Value Range Interpretation Code Description Data Krysten rce(s) Supporting Document(s) Lipase [Enzymatic activity/volume] in Serum or Plasma 271 U/L 13 - 60 H [facility] ID Date Data Source [id number] 02/11/2020 10:36:00 PM EDT [facility] Name Value Range Interpretation Code Description Data Krysten rce(s) Supporting Document(s) COMPREHENSIVE METABOLIC PANEL [facility] COMPREHENSIVE METABOLIC PANEL Sodium [Moles/volume] in Serum or Plasma 140 mEq/L 134 - 153 [facility] Potassium [Moles/volume] in Serum or Plasma 3.8 mEq/L 3.6 - 5.0 [facility] Chloride [Moles/volume] in Serum or Plasma 104 mEq/L 98 - 107 [facility] Carbon dioxide, total [Moles/volume] in Serum or Plasma 27 MEQ/L 22 - 30 [facility] Glucose [Mass/volume] in Serum or Plasma 87 MG/DL 65 - 110 [facility] BUN 9 MG/DL 7 - 21 [facility] Creatinine [Mass/volume] in Serum or Plasma 0.5 MG/DL 0.7 - 1.5 L [facility] BUN/CREAT 18 8 - 27 [facility] Protein [Mass/volume] in Serum or Plasma 6.6 G/DL 6.3 - 8.2 [facility] Albumin [Mass/volume] in Serum or Plasma 4.3 G/DL 3.9 - 5.0 [facility] Globulin [Mass/volume] in Serum by calculation 2.3 GM/DL 2.4 - 3.2 L [facility] A/G RATIO 1.9 0.8 - 2.0 [facility] Calcium [Mass/volume] in Serum or Plasma 9.0 MG/DL 8.4 - 10.2 [facility] Bilirubin.total [Mass/volume] in Serum or Plasma <0.7 MG/DL 0.2 - 1.3 [facility] Alkaline phosphatase [Enzymatic activity/volume] in Serum or Plasma 47 U/L 38 - 126 [facility] Aspartate aminotransferase [Enzymatic activity/volume] in Serum or Plasma 13 U/L 5 - 40 [facility] Alanine aminotransferase [Enzymatic activity/volume] in Seru m or Plasma 13 U/L 7 - 56 [facility] Anion gap 3 in Serum or Plasma 9.0 mmol/L 8.0 - 16.0 [facility] AGE 34 yrs [facility] al NON-AA GFR >60 mL/min [facility] ital AFR AMER GFR >60 mL/min [facility] Male GFR In terprentation [...] >32 mL/min Normal ID Date Data Source [id number] 02/11/2020 10:22:00 PM EDT [facility] Name Value Range Interpretation Code Description Data Krysten rce(s) Supporting Document(s) TROPONIN T <0.01 NG/ML 0.00 - 0.10 [facility] ospital TROPONIN T0.1 ng/ml Recommended as the c linical threshold value Jimena Echavarria. ID Date Data Source [id number] 02/11/2020 10:19:00 PM EDT [facility] Name Value Range Interpretation Code Description Data Krysten rce(s) Supporting Document(s) CBC W/AUTOMATED DIFF [facility] COMPLETE BLOOD COUNT Leukocytes [#/volume] in Blood by Automated count 5.9 10^3/uL 4.2 - 1 1.0 [facility] Erythrocytes [#/volume] in Blood by Automated count 4.01 10^6/uL 4. 20 - 5.40 L [facility] Hemoglobin [Mass/volume] in Blood 12.0 g/dL 12.0 - 16.0 [facility] Hematocrit [Volume Fraction] of Blood by Automated count 35.3 % 3 7.0 - 47.0 L [facility] Erythrocyte mean corpuscular volume [Entitic volume] by Auto mated count 88.0 fL 81.0 - 101 [facility] Erythrocyte mean corpuscular hemoglobin [Entitic mass] by Automated count 29.9 pg 27.0 - 34.0 [facility] Erythrocyte mean corpuscular hemoglobin concentration [Mass/volume] by Automated count 34.0 g/dL 31.0 - 36.0 [facility] Erythrocyte distribution width [Ratio] by Automated count 12.1 % 11.5 - 14.5 [facility] Platelets [#/volume] in Blood by Automated count 285 10^3/uL 150 - 45 0 [facility] Platelet mean volume [Entitic volume] in Blood by Automated count 8.9 fL 7.4 - 10.4 [facility] Neutrophils/100 leukocytes in Blood by Automated count 58.7 % 37. 0 - 80.0 [facility] Lymphocytes/100 leukocytes in Blood by Manual count 29.5 % 25.0 - 40.0 [facility] Monocytes/100 leukocytes in Blood by Automated count 10.0 % 3.0 - 8.0 H [facility] Eosinophils/100 leukocytes in Blood by Automated count 1.4 % 0.0 - 7.0 [facility] Basophils/100 leukocytes in Blood by Automated count 0.2 % 0.0 - 2.5 [facility] %IG 0.2 % 0.0 - 0.0 H [facility] %NRBC 0.0 % 0.0 - 0.0 [facility] Neutrophils [#/volume] in Blood by Automated count 3.46 10^3/uL 2.00 - 6.90 [facility] Lymphocytes [#/volume] in Blood by Automated count 1.74 10^3/uL 0.60 - 3.40 [facility] Monocytes [#/volume] in Blood by Automated count 0.59 10^3/uL 0.00 - 0.90 [facility] Eosinophils [#/volume] in Blood by Automated count 0.08 10^3/uL 0.00 - 0.70 [facility] Basophils [#/volume] in Blood by Automated count 0.01 10^3/uL 0.00 - 0.20 [facility] #IG 0.01 10^3/uL 0.00 - 0.10 [facility] #NRBC 0.00 10^3/uL 0.00 - 0.00 [facility] MANUAL DIFF NOT INDICATED [facility] RBC MORPH NOT INDICATED [facility] ID Date Data Source [id number] 02/11/2020 10:04:00 PM EDT [facility] Name Value Range Interpretation Code Description Data Krysten rce(s) Supporting Document(s) HCG SERUM QUAL NEGATIVE NORMAL: NEGATIVE [facility] HCG SERUM QL REENTER NEGATIVE NORMAL: NEGATIVE [facility] { KIT LOT # [id number] ){ KIT EXP DATE 05.11.21 ){ PROCEDURAL CONTROL VALID ) ID Date Data Source [id number] 01/23/2020 12:00:00 AM EDT [facility] ology Imaging Conrad Carlson MD Patient Name: MAHAD PRYORL[address] [facility] 1985[facility] [place] [address] Date of Exam: 01/23/2020#: Fax: [phone] EXAM: [...] rce(s) Supporting Document(s) ID Date Data Source [id number] 01/23/2020 12:00:00 AM EDT [facility] MD Patient Name: MAHAD PRYORL[address] [facility] Date [facility] : 1985[facility] [facility] [place] [address] Date of Exam: 01/23/2020#: Fax: [phone] EXAM: [...] rce(s) Supporting Document(s) ID Date Data Source [id number] 12/30/2019 12:00:00 AM EDT [facility] Imaging Conrad Carlson MD Patient Name: ARPITA PRYOR [address] [facility] Date of : 1985[place] [address] Date of Exam: 12/30/2019#: Fax: [phone] EXAM: ARTHROCENTESIS OF LARGE JOINT W/O USCLINICAL INFORMATION: Osteoarthritis of the left hip.The procedure was performed by Emerita Rojas [facility], under the directsupervision of Dr. Riggs.The benefits [...] radiation.Dictated by BERNICE Heart, with Dr. Riggs.SUKHDEEP Valdes/jmcTzak you for referring ARPITA PRYOR to our office. Electronically Signed - TONIE RIGGS DO 12/30/19 16:32 Name Value Range Interpretation Code Description Data Krysten rce(s) Supporting Document(s) ID Date Data Source [id number] 12/30/2019 12:00:00 AM EDT [facility] Imaging Conrad Carlson MD Patient Name: ARPITA PRYOR [id number] [facility] Date of : 1985[place] [address] Date of Exam: 12/30/2019#: Fax: [phone] EXAM: [...] 75% reduction in radiation.Dictated by Emerita Rojas, [facility], with Dr. Riggs.SUKHDEEP Valdes/Aleksandr you for referring ARPITA PRYOR to our office. Electronically Signed - TONIE RIGGS DO 12/30/19 16:32 Name Value Range Interpretation Code Description Data Krysten rce(s) Supporting Document(s) ID Date Data Source [id number] 12/30/2019 12:00:00 AM EDT [facility] Imaging Conrad Carlson MD Patient Name: MAHAD [id number] [facility] Date of : 1985[place] [address] Date of Exam: 12/30/2019#: Fax: [phone] EXAM: [...] is bilateral subchondral acetabular cyst formation. The W4xltxnvhrdvx is focal and n umberable. There is [...] diffuse marrow edema or avascularnecrosis.Accredited by the [employer] in [place].SUKHDEEP Valdes/Aleksandr you for referring ARPITA PRYOR to our office. Electronically Signed - TONIE RIGGS DO 01/21/20 15:40 Name Value Range Interpretation Code Description Data Krysten rce(s) Supporting Document(s) ID Date Data Source [id number] 10/15/2019 12:00:00 AM EDT [facility] Imaging Kurt Holloway MD Patient Name: KIKI PRYOR8 [facility] Date of : 1985[place] [address] Date of Exam: 10/15/2019PH#: Fax: [phone] EXAM: FOREARM LEFT X-RAYCLINICAL INFORMATION: Disability determination.Two views.There is no acute fracture or destructive osseous lesion.SUKHDEEP Valdes/Aleksandr you for referring ARPITA PRYOR to our office. Electronically Signed - TONIE RIGGS DO 10/15/19 15:20 Name Value Range Interpretation Code Description Data Krysten rce(s) Supporting Document(s) ID Date Data Source [id number] 10/15/2019 12:00:00 AM EDT [facility] Imaging Kurt Holloway MD Patient Name: [place] PRYOR [facility] Date [place] : 1985[place] [address] Date of Exam: 10/15/2019PH#: Fax: [phone] EXAM: ELBOW LEFT COMPLETE X-RAYCLINICAL [...] rce(s) Supporting Document(s) ID Date Data Source [id number] 10/15/2019 12:00:00 AM EDT [facility] oly Imaging Kurt Holloway MD Patient Name: ARPITA PRYOR518 [facility] Date of : 1985[place] [address] Date of Exam: 10/15/2019PH#: Fax: [phone] EXAM: ANKLE COMPLETE LEFT (MIN [...] rce(s) Supporting Document(s) ID Date Data Source [id number] 09/05/2019 10:14:00 AM EST [facility] ([facility]) Name Value Range Interpretation Code Description Data Krysten rce(s) Supporting Document(s) Antinuclear Antibodies Direct Laboratory test result [facility] ([facility]) Performed at: [facility] [address] [id number] [employer]: Lynette Guillen MD, Phone: [phone] Performed at: [facility] [address] [id number] [employer]: Nilam Sandoval MD, Phone: [phone] ID Date Data Source [id number] 09/05/2019 10:14:00 AM EST [facility] ([facility]) Name Value Range Interpretation Code Description Data Krysten rce(s) Supporting Document(s) Pyridoxine [Mass/volume] in Serum or Plasma 21.2 ug/L 2.0-32.8 [facility] ([facility]) Specimen Comment: Test(s) 374010-Idtyjqx E(Alpha Tocopherol); 343400- Specimen Comment: Vitamin E(Gamma Tocopherol); 107286-Jlhlzkt B6; 000858- Specimen Comment: Vit. B1, Whole Blood Specimen Comment: was developed and its performance characteristics Specimen Comment: determined by [facility]. It has not been cleared or approved Specimen Comment: by the Food and Drug Administration. Thiamine [Mass/volume] in Blood 154.5 nmol/L 66.5-200.0 [facility] ([facility]) Specimen Comment: Test(s) 905991-Oxwstwp E(Alpha Tocopherol); 312006- Specimen Comment: Vitamin E(Gamma Tocopherol); 207639-Zampcin B6; 154060- Specimen Comment: Vit. B1, Whole Blood Specimen Comment: was developed and its performance characteristics Specimen Comment: determined by [facility]. It has not been cleared or approved Specimen Comment: by the Food and Drug Administration. ID Date Data Source [id number] 09/05/2019 10:14:00 AM EST [facility] ([facility]) Name Value Range Interpretation Code Description Data Krysten rce(s) Supporting Document(s) Vitamin E(Alpha Tocopherol) 12.0 mg/L 5.9-19.4 [facility] ([facility]) Vitamin E(Gamma Tocopherol) 0.8 mg/L 0.7-4.9 [facility] ([facility]) Reference intervals for alpha and gamma- tocopherol determined from National Health and Nutrition Examination Survey, 3360-0417. Individuals with alpha-tocopherol levels less than 5.0 mg/L are considered vitamin E deficient. ID Date Data Source [id number] 09/05/2019 10:14:00 AM EST [facility] ([facility] ) Name Value Range Interpretation Code Description Data Krysten rce(s) Supporting Document(s) Rheumatoid factor [Units/volume] in Serum or Plasma Laboratory test result [facility] ([facility]) ID Date Data Source [id number] 09/05/2019 10:14:00 AM EST [facility] ([facility]) Name Value Range Interpretation Code Description Data Krysten rce(s) Supporting Document(s) Folate 16.3 ng/mL [facility] ([facility]) FOLATE NORMAL RANGE NORMAL GREATER THAN 5.4 NG/ML INDETERMINATE 3.4-5.4 NG/ML DEFICIENT LESS THAN 3.4 NG/ML Vitamin B12 Level 460 pg/mL [facility] ([facility]) VITAMIN B12 NORMAL RANGE NORMAL 247 - 911 PG/ML INDETERMINATE 211 - 246 PG/ML DEFICIENT LESS THAN 211 PG/ML ID Date Data Source [id number] 09/05/2019 10:14:00 AM EST [facility] ([facility]) Name Value Range Interpretation Code Description Data Krysten rce(s) Supporting Document(s) Thyroid Stimulating Hormone 2.110 uIU/ML 0.358-3.740 [facility] ([facility]) Free T4 1.05 ng/dL 0.76-1.46 [facility] ([facility], ) ID Date Data Source [id number] 09/05/2019 10:14:00 AM EST [facility] ([facility]) Name Value Range Interpretation Code Description Data Krysten rce(s) Supporting Document(s) Albumin % 63.7 % 55.8-66.1 [facility] ([facility] ) Acucl-2-Slnwxymz % 3.7 % 2.9-4.9 [facility] ([facility], ) Oycg-8-Snmhljxem % 5.9 % 4.7-7.2 [facility] Ipovl-4-Hsjubyagq % 8.3 % 7.1-11.8 [facility] ([facility] ) Gamma Globulin % 14.7 % 11.1-18.8 [facility] Tysb-2-Kvjjjtvfo % 3.7 % 3.2-6.5 [facility] ([facility]) Albumin 4.78 GM/DL 3.29-5.55 [facility] ([facility]) Rgloe-1-Rxkcnsoki 0.28 GM/DL 0.17-0.41 [facility] ([facility]) Qrmbj-8-Deylfeuuj 0.62 GM/DL 0.42-0.99 [facility] ([facility]) Nglo-5-Tueonzbbm 0.28 GM/DL 0.19-0.55 [facility] ([facility]) Lzyn-7-Jdvfwguov 0.44 GM/DL 0.28-0.60 [facility] ([facility]) Gamma Globulins 1.10 GM/DL 0.65-1.58 [facility] ([facility]) Total Protein 7.5 GM/DL 6.4-8.2 [facility] ([facility]) Spep Interpretation Laboratory test result [facility] ([facility]) NO M-SPIKE(S)NOTED. Laboratory test finding (navigational concept) Laboratory test result [facility] ([facility]) REV'D BY Lili MCGRATH ID Date Data Source [id number] 09/05/2019 10:14:00 AM EST [facility] Name Value Range Interpretation Code Description Data Krysten rce(s) Supporting Document(s) PTT Lupus Type Anticoag Screen 0.8 0-1.2 [facility] ([facility]) RESULT IS LESS THAN 1.2, [...] a specific inhibitor. ID Date Data Source [id number] 09/05/2019 10:14:00 AM EST [facility] ([facility]) Name Value Range Interpretation Code Description Data Krysten rce(s) Supporting Document(s) Hemoglobin A1c 4.8 % [facility] ([facility], ) REFERENCE RANGES: 4.5-5.6% NORMAL 5.7-6.4% SUGGESTS IMPAIRED GLUCOSE META BOLISM >= 6.5% ABNORMAL Estimated Average Glucose 91 mg/dL 60-110 [facility] ([facility], ) ID Date Data Source [id number] 09/05/2019 10:14:00 AM EST [facility] ([facility], ) Name Value Range Interpretation Code Description Data Krysten rce(s) Supporting Document(s) Erythrocyte sedimentation rate by 2H Westergren method 3 mm/hr 0-2 0 [facility] ([facility], ) Procedure Social History Code Duration Value Status Description Data Source(s ) Smoking 08/10/2020 12:00:00 AM EST Former Smoker completed Former Smoker [facility] ([facility]) Smoking 06/15/2020 12:00:00 AM EST Former Smoker completed Former Smoker eCW1 ([facility]) Smoking 06/15/2020 12:00:00 AM EST Former Smoker completed Former Smoker eCW1 ([facility]) Smoking 06/15/2020 12:00:00 AM EST Former Smoker completed Former Smoker eCW1 ([facility]) Smoking 06/14/2020 12:00:00 AM EST Patient is a former smoker completed Patient is a former smoker [facility] ([facility]) Smoking 05/12/2020 12:00:00 AM EDT Former Smoker completed Former Smoker eCW1 ([facility]) Smoking 05/12/2020 12:00:00 AM EDT Former Smoker completed Former Smoker eCW1 ([facility]) Smoking 05/12/2020 12:00:00 AM EDT Former Smoker completed Former Smoker eCW1 ([facility]) Smoking 05/06/2020 12:00:00 AM EDT Former Smoker completed Former Smoker eCW1 ([facility]) Smoking 05/05/2020 12:00:00 AM EDT Former Smoker completed Former Smoker [facility] [facility] Vital Signs ID Date Data Source UNK Name Value Range Interpretation Code Description Data Source(s) Diastolic blood pressure 80 mm[Hg] 80 mm[Hg] eCW1 ([facility]) Systolic blood pressure 113 mm[Hg] 113 mm[Hg] e CW1 ([facility]) Body mass index (BMI) [Ratio] 25.53 kg/m2 25.53 kg/m2 eCW1 ([facility]) Body height 67 [in_i] 67 [in_i] eCW1 ([facility]) Body weight 73.94 kg 73.94 kg eCW1 ([facility]) Body weight 163 [lb_av] 163 [lb_av] eCW1 ([facility]) Diastolic blood pressure 67 mm[Hg] 67 mm[Hg] eCW1 ([facility]) Systolic blood pressure 125 mm[Hg] 125 mm[Hg] e CW1 ([facility]) Body temperature 97.3 [degF] 97.3 [degF] eCW1 ( [facility]) Respiratory rate 18 /min 18 /min eCW1 ([facility]) Heart rate 73 /min 73 /min eCW1 ([facility]) Body mass index (BMI) [Ratio] 25.37 kg/m2 25.37 kg/m2 eCW1 ([facility]) Body height 67 [in_i] 67 [in_i] eCW1 ([facility]) Body weight 162.0 [lb_av] 162.0 [lb_av] eCW1 ([facility]) Body mass index (BMI) [Ratio] 24.6 kg/m2 24.6 k g/m2 MEDENT ([facility], [facility]) Body height 67 [in_i] 67 [in_i] MEDENT ([facility]) 5'7" Body weight 157.00 [lb_av] 157.00 [lb_av] MEDEN T ([facility], [facility]) Body temperature 98.3 [degF] 98.3 [degF] MEDENT ([facility], [facility]) Oxygen saturation in Arterial blood by Pulse oximetry 98 % 98 % MEDENT ([facility]) Respiratory rate 14 /min 14 /min MEDENT ( [facility], [facility]) Heart rate 52 /min 52 /min MEDENT ([facility], [facility]) Diastolic blood pressure 72 mm[Hg] 72 mm[Hg] MEDENT ([facility], [facility]) Systolic blood pressure 110 mm[Hg] 110 mm[Hg] M EDENT ([facility], [facility]) Diastolic blood pressure 70 mm[Hg] 70 mm[Hg] eCW1 ([facility]) Systolic blood pressure 116 mm[Hg] 116 mm[Hg] e CW1 ([facility]) Body mass index (BMI) [Ratio] 26.9 kg/m2 26.9 k g/m2 eCW1 ([facility]) Body height 67 [in_i] 67 [in_i] eCW1 ([facility]) Body weight 77.93 kg 77.93 kg eCW1 ([facility]) Body weight 171.8 [lb_av] 171.8 [lb_av] eCW1 ([facility]) Diastolic blood pressure 66 mm[Hg] 66 mm[Hg] eCW1 ([facility]) Systolic blood pressure 113 mm[Hg] 113 mm[Hg] e CW1 ([facility]) Body temperature 97.0 [degF] 97.0 [degF] eCW1 ( [facility]) Respiratory rate 18 /min 18 /min eCW1 ([facility]) Heart rate 56 /min 56 /min eCW1 ([facility]) Body mass index (BMI) [Ratio] 26.56 kg/m2 26.56 kg/m2 eCW1 ([facility]) Body height 67 [in_i] 67 [in_i] eCW1 ([facility]) Body weight 169.6 [lb_av] 169.6 [lb_av] eCW1 ([facility]) Body mass index (BMI) [Ratio] 25.0 kg/m2 25.0 k g/m2 MEDENT ([facility]) Body weight 155.00 [lb_av] 155.00 [lb_av] MEDEN T ([facility]) Body height 66 [in_i] 66 [in_i] MEDENT ([facility]) 5'6" Body temperature 96.0 [degF] 96.0 [degF] MEDENT ([facility]) Diastolic blood pressure 60 mm[Hg] 60 mm[Hg] eCW1 ([facility]) Systolic blood pressure 110 mm[Hg] 110 mm[Hg] e CW1 ([facility]) Body mass index (BMI) [Ratio] 25.06 kg/m2 25.06 kg/m2 eCW1 ([facility]) Body height 67 [in_us] 67 [in_us] eCW1 ([facility]) Body weight Measured 160 [lb_av] 160 [lb_av] eC W1 ([facility]) Patient Treatment Plan of Care Planned Activity Planned Date Details Description Data Source (s) cetirizine hydrochloride 10 MG Oral Tablet [Zyrtec] 06/16/20 12:00:00 AM EST eCW1 ([facility]) cetirizine hydrochloride 10 MG Oral Tablet [Zyrtec] 06/16/20 12:00:00 AM EST eCW1 ([facility]) cetirizine hydrochloride 10 MG Oral Tablet [Zyrtec] 06/16/20 12:00:00 AM EST eCW1 ([facility]) Phentermine Hydrochloride 37.5 MG Oral Capsule 05/12/2020 12:00:00 AM EDT eCW1 ([facility]) medroxyprogesterone acetate 10 MG Oral Tablet [Provera ] 05/12/2020 12:00:00 AM EDT eCW1 ([facility]) Phentermine Hydrochloride 37.5 MG Oral Capsule 05/12/2020 12:00:00 AM EDT eCW1 ([facility]) medroxyprogesterone acetate 10 MG Oral Tablet [Provera ] 05/12/2020 12:00:00 AM EDT eCW1 ([facility]) Phentermine Hydrochloride 37.5 MG Oral Capsule 05/12/2020 12:00:00 AM EDT eCW1 ([facility]) medroxyprogesterone acetate 10 MG Oral Tablet [Provera ] 05/12/2020 12:00:00 AM EDT eCW1 ([facility]) Diclofenac Sodium 0.01 MG/MG Topical Gel [Voltaren] 05/06/20 12:00:00 AM EDT eCW1 ([facility]) medroxyprogesterone acetate 10 MG Oral Tablet [Provera ] 09/22/2019 12:00:00 AM EST eCW1 ([facility]) Phentermine Hydrochloride 37.5 MG Oral Capsule 09/22/2019 12:00:00 AM EST eCW1 ([facility])
[2020-09-22 03:45] LABS: BASO % 0.4 % (0.0-1.0); EOS # 0.1 10^3/uL (0.0-0.5); EOS % 1.5 % (0.0-3.0); HEMATOCRIT 38.6 % (36.0-47.0); HEMOGLOBIN 12.4 g/dl (12.0-15.5); LYMPH # 2.7 10^3/uL (1.5-5.0); LYMPH % 29.2 % (24.0-44.0); MEAN CORPUSCULAR HEMOGLOBIN 29.4 pg (27.0-33.0); MEAN CORPUSCULAR HGB CONC 32.1 g/dl (32.0-36.5); MEAN CORPUSCULAR VOLUME 91.5 fl (80.0-96.0); MONO # 1.1 10^3/uL (0.0-0.8); MONO % 11.3 % (2.0-8.0); NEUTROPHILS # 5.3 10^3/uL (1.5-8.5); NEUTROPHILS % 57.3 % (36.0-66.0); PLATELET COUNT, AUTOMATED 321 10^3/uL (150-450); RED BLOOD COUNT 4.22 10^6/uL (4.00-5.40); WHITE BLOOD COUNT 9.3 10^3/uL (4.0-10.0)
[2020-09-22 04:12] LABS: ALBUMIN 3.7 GM/DL (3.2-5.2); ALT/SGPT 16 U/L (12-78); BILIRUBIN,DIRECT < 0.1 MG/DL (0.0-0.2); BILIRUBIN,TOTAL 0.2 MG/DL (0.2-1.0); BLOOD UREA NITROGEN 8 MG/DL (7-18); CALCIUM LEVEL 8.1 MG/DL (8.5-10.1); CARBON DIOXIDE LEVEL 29 MEQ/L (21-32); CHLORIDE LEVEL 108 MEQ/L (98-107); CK-MB VALUE MASS < 1.0 NG/ML (<3.6); CPK CREATINE PHOSPHOKINASE 55 U/L (26-192); CREATININE FOR GFR 0.54 MG/DL (0.55-1.30); GLOMERULAR FILTRATION RATE > 60.0 (>60); GLUCOSE, FASTING 87 MG/DL (70-100); HCG, SERUM QUALITATIVE NEGATIVE (NEGATIVE); LIPASE 107 U/L (73-393); MB/CK RELATIVE INDEX 1.82 (< OR =4); POTASSIUM SERUM 4.1 MEQ/L (3.5-5.1); SODIUM LEVEL 140 MEQ/L (136-145); TOTAL PROTEIN 6.6 GM/DL (6.4-8.2); TROPONIN I < 0.02 NG/ML (< 0.10)
[2020-09-22 04:17] LABS: ERYTHROCYTE SEDIMENTATION RATE 3 mm/hr (0-20)
--- NOTE | 2020-09-22 04:41 | REPVR ---
PROCEDURE INFORMATION: Exam: XR Chest, 1 View Exam date and time: 09/22/20 (4:22am) Age: 34 years old Clinical indication: Chest pain TECHNIQUE: Imaging protocol: Portable CXR Views: 1 view COMPARISON: No relevant prior studies available FINDINGS: Lungs: Unremarkable. No consolidation. Pleural spaces: Unremarkable. No pleural effusions. No pneumothorax. Heart/Mediastinum: Unremarkable. No cardiomegaly. Bones/joints: Unremarkable. IMPRESSION: No acute findings. Clear lung barbosa. Electronically signed by: Emerita Reynolds On 09/22/2020 04:41:43 AM
[2020-09-22] MEDS ORDERED: KETOROLAC 30 MG/ML 1ML VIAL IV ONE (04:45)
[2020-09-22 04:57] LABS: AMPHETAMINES LEVEL URINE NEGATIVE (NEGATIVE); BARBITURATES URINE NEGATIVE (NEGATIVE); BENZODIAZEPINES URINE POSITIVE (NEGATIVE); CANNABINOIDS URINE POSITIVE (NEGATIVE); COCAINE METABOLITE URINE NEGATIVE (NEGATIVE); METHADONE URINE NEGATIVE (NEGATIVE); OPIATES URINE NEGATIVE (NEGATIVE)
[2020-09-22 05:00] LABS: PHENCYCLIDINE URINE NEGATIVE (NEGATIVE)
[2020-09-22] MEDS ORDERED: ISOVUE-370 76% 100ML VIAL As Ordered ONE (05:27)
--- NOTE | 2020-09-22 06:12 | REPVR ---
PROCEDURE INFORMATION: Exam: CT Angiography Chest with Contrast Exam date and time: 09/22/20 (5:38am) Age: 34 years old Clinical indication: Back pain TECHNIQUE: Imaging protocol: Computed tomographic angiography of the chest with contrast. 3D rendering (Not supervised by radiologist): MIP and/or 3D reconstructed images were created by the technologist. Radiation optimization: All CT scans at this facility use at least one of these dose optimization techniques: automated exposure control; mA and/or kV adjustment per patient size (includes targeted exams where dose is matched to clinical indication); or iterative reconstruction. Contrast material: Iso Contrast volume: 100 ml Contrast route: IV COMPARISON: Portable CXR of 09/22/20 FINDINGS: Pulmonary arteries: Normal. No pulmonary emboli. Aorta: Unremarkable. No aortic aneurysm. No aortic dissection. Lungs: Unremarkable. No consolidation. No masses. Pleural spaces: Unremarkable. No pneumothorax. No pleural effusions. Heart: Unremarkable. No cardiomegaly. No pericardial effusion. Lymph nodes: Unremarkable. No enlarged lymph nodes. Bones/joints: Unremarkable. No acute fracture. Soft tissues: Unremarkable. IMPRESSION: No acute findings. No filling defects suspicious for pulmonary emboli are seen. There is no CT evidence of aortic dissection nor leakage. No aortic aneurysm is appreciated. Electronically signed by: Emerita Reynolds On 09/22/2020 06:13:11 AM
--- NOTE | 2020-09-22 06:24 | REPVR ---
PROCEDURE INFORMATION: Exam: CT Abdomen and Pelvis with Contrast Exam date and time: 09/22/20 (5:38am) Age: 34 years old Clinical indication: Back pain TECHNIQUE: Imaging protocol: Computed tomography of the abdomen and pelvis with contrast. Radiation optimization: All CT scans at this facility use at least one of these dose optimization techniques: automated exposure control; mA and/or kV adjustment per patient size (includes targeted exams where dose is matched to clinical indication); or iterative reconstruction. Contrast material: Iso Contrast volume: 100 ml Contrast route: IV COMPARISON: CT ABDOMEN PELVIS of 09/12/19 FINDINGS: Liver: Normal. No solid mass. Gallbladder and bile ducts: S/P cholecystectomy. No ductal dilatat are ion. Pancreas: Normal. No ductal dilatation. Spleen: Normal. No splenomegaly. Adrenal glands: Normal. No mass. Kidneys and ureters: Normal. No hydronephrosis. Stomach and bowel: Unremarkable. No bowel obstruction. No mucosal thickening. Appendix: No evidence of appendicitis. Intraperitoneal space: Unremarkable. No free air. No significant fluid collection. Vasculature: Unremarkable. No abdominal aortic aneurysm. No acute aortic pathology. Lymph nodes: Unremarkable. No enlarged lymph nodes. Urinary bladder: Unremarkable as visualized. Reproductive: Unremarkable as visualized. The uterus tilts to the right of midline. Bones/joints: Unremarkable. No acute fracture. Soft tissues: Unremarkable. IMPRESSION: No acute findings. No acute aortic pathology. No evidence of aortic dissection. Electronically signed by: Emerita Reynolds On 09/22/2020 06:24:37 AM
[2020-09-22 07:15] VITALS: BP 118/79
--- NOTE | 2020-09-22 07:51 | ECGEPIP ---
[facility] - ED Test Date: 2020-09-22 Pat Name: DREA PRYOR Department: Room: - Gender: Female [employer]: kristian : 1985 Requested By: KURT Dotson Order Number: [id number] Reading MD: Kurt Mena Measurements Intervals Brandt Rate: 57 P: 50 AK: 162 QRS: 57 QRSD: 80 T: 49 QT: 430 QTc: 418 Interpretive Statements Sinus bradycardia Less ectopy than tracing done 07-26-20 Electronically Signed on 09-22-2020 7:51:02 EST by Kurt Mena
== END 2020-09-22 07:38 | disposition home or self-care (01) ==
LOC: M ED 23:35
DX: R10.84 Generalized abdominal pain (principal); R00.1 Bradycardia, unspecified; K21.9 Gastro-esophageal reflux disease without esophagitis; F90.9 Attention-deficit hyperactivity disorder, unspecified type; M48.00 Spinal stenosis, site unspecified; Z79.899 Other long term (current) drug therapy; Z88.6 Allergy status to analgesic agent; Z88.5 Allergy status to narcotic agent; Z91.89 Other specified personal risk factors, not elsewhere classified; Z91.040 Latex allergy status
CPT/HCPCS: 36415; 71045; 71275; 74177; 80048; 80076; 80307; 81001; 82550; 82553; 83690; 84703; 85025; 85652; 86140; 93005; 93041; 96361; 96374; 99285; J1885; Q9967

== ENCOUNTER → 2020-09-24 | Outpatient (REF) | payer OTHER ==
[~2020-09-24] MED LIST changes: +BUPR150T12; -BUPR150T4
[2020-09-24 18:31] LABS: BASO % 0.4 % (0.0-1.0); EOS # 0.1 10^3/uL (0.0-0.5); EOS % 1.5 % (0.0-3.0); HEMATOCRIT 37.7 % (36.0-47.0); HEMOGLOBIN 12.3 g/dl (12.0-15.5); LYMPH # 1.4 10^3/uL (1.5-5.0); LYMPH % 19.8 % (24.0-44.0); MEAN CORPUSCULAR HEMOGLOBIN 29.9 pg (27.0-33.0); MEAN CORPUSCULAR HGB CONC 32.6 g/dl (32.0-36.5); MEAN CORPUSCULAR VOLUME 91.7 fl (80.0-96.0); MONO # 0.9 10^3/uL (0.0-0.8); MONO % 12.1 % (2.0-8.0); NEUTROPHILS # 4.8 10^3/uL (1.5-8.5); NEUTROPHILS % 66.1 % (36.0-66.0); PLATELET COUNT, AUTOMATED 316 10^3/uL (150-450); RED BLOOD COUNT 4.11 10^6/uL (4.00-5.40); WHITE BLOOD COUNT 7.3 10^3/uL (4.0-10.0)
[2020-09-24 18:59] LABS: ALBUMIN 3.7 GM/DL (3.2-5.2); ALT/SGPT 19 U/L (12-78); BILIRUBIN,TOTAL 0.3 MG/DL (0.2-1.0); BLOOD UREA NITROGEN 14 MG/DL (7-18); CALCIUM LEVEL 8.4 MG/DL (8.5-10.1); CARBON DIOXIDE LEVEL 29 MEQ/L (21-32); CHLORIDE LEVEL 106 MEQ/L (98-107); CHOLESTEROL LEVEL 151 MG/DL (<200); CHOLESTEROL RISK RATIO 3.145 (<5); CREATININE FOR GFR 0.56 MG/DL (0.55-1.30); GLOMERULAR FILTRATION RATE > 60.0 (>60); GLUCOSE, FASTING 85 MG/DL (70-100); HDL CHOLESTEROL 48 MG/DL (>40); LDL CHOLESTEROL 73 MG/DL (<100); NON-HDL-C 103 MG/DL; POTASSIUM SERUM 4.1 MEQ/L (3.5-5.1); SODIUM LEVEL 141 MEQ/L (136-145); THYROID STIMULATING HORMONE 0.945 uIU/ML (0.358-3.740); TOTAL 25(OH) VITAMIN D 26.2 NG/ML (30.0-100.0); TOTAL PROTEIN 6.4 GM/DL (6.4-8.2); TRIGLYCERIDES LEVEL 149 MG/DL (<150)
== END ==
LOC: M LAB REF 17:12
PROVIDERS: ATTEND Pediatrics
DX: Z76.89 Persons encountering health services in other specified circumstances (principal)

== ENCOUNTER → 2020-10-07 | Outpatient (REF) | payer OTHER | LOC: M LAB REF 16:29 | PROVIDERS: ATTEND Pediatrics | DX: Z33.2 Encounter for elective termination of pregnancy (principal) ==

== ENCOUNTER 2021-02-17 20:57 | Emergency (ER) | payer OTHER ==
[~2021-02-17] VITALS: Ht 170.2 cm; Wt 73.5 kg
[~2021-02-17 20:57] MED LIST changes: +CYCL-707; +TRIA1CR80; +TRIA1CR80 TOP
[2021-02-17] MEDS ORDERED: DULO1CAP6 PO (21:05)
[2021-02-17 22:07] LABS: BASO % 0.3 % (0.0-1.0); EOS # 0.1 10^3/uL (0.0-0.5); EOS % 0.7 % (0.0-3.0); HEMATOCRIT 38.4 % (36.0-47.0); LYMPH # 1.9 10^3/uL (1.5-5.0); LYMPH % 27.2 % (24.0-44.0); MEAN CORPUSCULAR HGB CONC 33.9 g/dl (32.0-36.5); MEAN CORPUSCULAR VOLUME 88.5 fl (80.0-96.0); MONO # 0.7 10^3/uL (0.0-0.8); MONO % 9.5 % (2.0-8.0); NEUTROPHILS # 4.3 10^3/uL (1.5-8.5); PLATELET COUNT, AUTOMATED 343 10^3/uL (150-450); RED BLOOD COUNT 4.34 10^6/uL (4.00-5.40)
[2021-02-17 22:25] LABS: ALBUMIN 4.1 GM/DL (3.2-5.2); BILIRUBIN,DIRECT 0.1 MG/DL (0.0-0.2); BILIRUBIN,TOTAL 0.3 MG/DL (0.2-1.0); TOTAL PROTEIN 7.1 GM/DL (6.4-8.2)
[2021-02-17] MEDS ORDERED: LIDOCAINE 5% (LIDODERM) PATCH TD ONE (22:40)
[2021-02-17] MEDS ORDERED: ONDANSETRON 4 MG ORAL DISINTEGRATING TAB PO ONE (23:30)
[2021-02-18 00:19] VITALS: BP 131/75
[2021-02-18] MEDS ORDERED: ONDA4TAB6 PO (00:28)
[2021-02-18] MEDS ORDERED: **NOTE PATIENT COMMENT** MISC XX SCH (09:00)
== END 2021-02-18 00:38 | disposition home or self-care (01) ==
LOC: M ED 20:57
DX: R11.0 Nausea (principal); R10.9 Unspecified abdominal pain; Z88.5 Allergy status to narcotic agent; Z88.8 Allergy status to other drugs, medicaments and biological substances; Z91.040 Latex allergy status; Z91.048 Other nonmedicinal substance allergy status
CPT/HCPCS: 36415; 80047; 80076; 81001; 83690; 84702; 85025; 99284; Q0162

== ENCOUNTER 2021-03-21 16:08 | Emergency (ER) | payer OTHER ==
[~2021-03-21] VITALS: Ht 170.2 cm; Wt 72.9 kg
[2021-03-21 16:08] VITALS: BP 112/85
[~2021-03-21 16:08] MED LIST changes: +DULO1CAP6 PO; +HYDR-4571; +ONDA4TAB6 PO
[2021-03-21] MEDS ORDERED: BUPR1TAB52 (16:35)
== END 2021-03-21 19:04 | disposition left against medical advice (07) ==
LOC: M ED 16:08
DX: Z53.29 Procedure and treatment not carried out because of patient's decision for other reasons (principal)

== ENCOUNTER 2021-09-16 21:50 | Emergency (ER) | payer MEDICAID, OTHER ==
[~2021-09-16] VITALS: Ht 172.7 cm; Wt 78.2 kg
[~2021-09-16 21:50] MED LIST changes: +BUPR1TAB52; +GABA-1171
[2021-09-16 21:59] VITALS: BP 129/78
[2021-09-16] MEDS ORDERED: ACETAMINOPHEN TAB 650MG DOSE (2X325MG) PO ONE (22:30)
[2021-09-16] MEDS ORDERED: hydrOXYzine 25 MG TAB PO ONE (22:30)
== END 2021-09-16 23:19 | disposition home or self-care (01) ==
LOC: M ED 21:50
DX: F41.9 Anxiety disorder, unspecified (principal); E28.2 Polycystic ovarian syndrome; F32.A Depression, unspecified; Z88.5 Allergy status to narcotic agent; Z88.6 Allergy status to analgesic agent; Z91.040 Latex allergy status; Z79.899 Other long term (current) drug therapy

== ENCOUNTER → 2021-10-04 | Outpatient (REF) | payer MEDICAID, OTHER ==
[2021-10-04 23:42] LABS: APPEARANCE, URINE HAZY (CLEAR); BACTERIA, URINE AUTO 1+ (NEGATIVE); BILIRUBIN, URINE AUTO NEGATIVE (NEGATIVE); BLOOD, URINE BLOOD NEGATIVE (NEGATIVE); CALCIUM OXALATE CRYSTALS MODERATE; COLOR, URINE YELLOW (YELLOW); GLUCOSE, URINE (UA) AUTO NEGATIVE (NEGATIVE); KETONE, URINE AUTO TRACE mg/dL (NEGATIVE); LEUKOCYTE ESTERASE, URINE AUTO 2+ (NEGATIVE); MUCUS, URINE MODERATE (NEGATIVE); NITRITE, URINE AUTO NEGATIVE (NEGATIVE); PROTEIN, URINE AUTO NEGATIVE (NEGATIVE); RBC, URINE AUTO 12 /HPF (0-3); SPECIFIC GRAVITY URINE AUTO 1.027 (1.002-1.035); SQUAMOUS EPITHELIAL CELL UR AU 4 /HPF (0-6); WBC, URINE AUTO 49 /HPF (0-3)
== END ==
LOC: M LAB REF 23:02
PROVIDERS: ATTEND Physician Assistant Medical
DX: N39.0 Urinary tract infection, site not specified (principal)

== ENCOUNTER → 2021-10-12 | Outpatient (CLI) | payer OTHER ==
[2021-10-12 17:37] LABS: BASO % 0.2 % (0.0-1.0); EOS % 0.5 % (0.0-3.0); HEMATOCRIT 40.8 % (36.0-47.0); HEMOGLOBIN 13.4 g/dl (12.0-15.5); LYMPH # 1.6 10^3/uL (1.5-5.0); LYMPH % 24.8 % (24.0-44.0); MEAN CORPUSCULAR HEMOGLOBIN 29.3 pg (27.0-33.0); MEAN CORPUSCULAR HGB CONC 32.8 g/dl (32.0-36.5); MEAN CORPUSCULAR VOLUME 89.1 fl (80.0-96.0); MONO # 0.6 10^3/uL (0.0-0.8); NEUTROPHILS # 4.2 10^3/uL (1.5-8.5); NEUTROPHILS % 65.2 % (36.0-66.0); PLATELET COUNT, AUTOMATED 321 10^3/uL (150-450); RED BLOOD COUNT 4.58 10^6/uL (4.00-5.40); WHITE BLOOD COUNT 6.4 10^3/uL (4.0-10.0)
[2021-10-12 18:26] LABS: ALT/SGPT 22 U/L (12-78); BILIRUBIN,TOTAL 0.7 MG/DL (0.2-1.0); BLOOD UREA NITROGEN 8 MG/DL (7-18); CALCIUM LEVEL 8.7 MG/DL (8.5-10.1); CARBON DIOXIDE LEVEL 27 MEQ/L (21-32); CHLORIDE LEVEL 108 MEQ/L (98-107); CREATININE FOR GFR 0.67 MG/DL (0.55-1.30); GLOMERULAR FILTRATION RATE > 60.0 (>60); GLUCOSE, FASTING 64 MG/DL (70-100); POTASSIUM SERUM 3.7 MEQ/L (3.5-5.1); SODIUM LEVEL 140 MEQ/L (136-145); TOTAL PROTEIN 7.1 GM/DL (6.4-8.2)
[2021-10-12 18:49] LABS: ERYTHROCYTE SEDIMENTATION RATE 4 mm/hr (0-20)
== END ==
LOC: M RAD 15:08
PROVIDERS: ATTEND Internal Medicine Rheumatology
DX: M79.671 Pain in right foot (principal); M79.672 Pain in left foot; M79.641 Pain in right hand; M79.642 Pain in left hand; M54.50 Low back pain, unspecified

== ENCOUNTER 2021-10-20 17:46 | Emergency (ER) | payer OTHER ==
[~2021-10-20] VITALS: Ht 170.2 cm; Wt 75.0 kg
[2021-10-20 17:47] VITALS: BP 114/74
[2021-10-20] MEDS ORDERED: diphenhydrAMINE 50MG/ML VIAL (J1200) IV STA (21:04)
[2021-10-20] MEDS ORDERED: NS 1,000 ML IV ONE (21:05)
[2021-10-20] MEDS ORDERED: METOCLOPRAMIDE INJ 10MG/2ML VIAL (J2765 PER 1) IV ONE (21:05)
[2021-10-20 21:30] LABS: BASO % 0.5 % (0.0-1.0); EOS # 0.1 10^3/uL (0.0-0.5); EOS % 1.4 % (0.0-3.0); HEMATOCRIT 36.7 % (36.0-47.0); HEMOGLOBIN 12.6 g/dl (12.0-15.5); LYMPH % 35.9 % (24.0-44.0); MEAN CORPUSCULAR HEMOGLOBIN 29.8 pg (27.0-33.0); MEAN CORPUSCULAR HGB CONC 34.3 g/dl (32.0-36.5); MEAN CORPUSCULAR VOLUME 86.8 fl (80.0-96.0); MONO # 0.6 10^3/uL (0.0-0.8); MONO % 10.5 % (2.0-8.0); NEUTROPHILS # 2.9 10^3/uL (1.5-8.5); NEUTROPHILS % 51.5 % (36.0-66.0); PLATELET COUNT, AUTOMATED 272 10^3/uL (150-450); RED BLOOD COUNT 4.23 10^6/uL (4.00-5.40); WHITE BLOOD COUNT 5.7 10^3/uL (4.0-10.0)
[2021-10-20 22:06] LABS: ALBUMIN 3.6 GM/DL (3.2-5.2); ALT/SGPT 21 U/L (12-78); BILIRUBIN,DIRECT < 0.1 MG/DL (0.0-0.2); BILIRUBIN,TOTAL 0.2 MG/DL (0.2-1.0); LIPASE 77 U/L (73-393); TOTAL PROTEIN 6.6 GM/DL (6.4-8.2)
[2021-10-20 22:58] LABS: CK-MB VALUE MASS < 1.0 NG/ML (<3.6); CPK CREATINE PHOSPHOKINASE 63 U/L (26-192); MB/CK RELATIVE INDEX 1.59 (< OR =4)
== END 2021-10-20 23:36 | disposition home or self-care (01) ==
LOC: M ED 17:46
DX: G43.909 Migraine, unspecified, not intractable, without status migrainosus (principal); E86.0 Dehydration; M79.10 Myalgia, unspecified site; E28.2 Polycystic ovarian syndrome; N80.9 Endometriosis, unspecified; F32.A Depression, unspecified; F41.9 Anxiety disorder, unspecified; Z88.6 Allergy status to analgesic agent; Z88.8 Allergy status to other drugs, medicaments and biological substances
CPT/HCPCS: 80047; 80076; 81001; 82550; 82553; 83690; 85025; 93005; 96361; 96374; 96375; 99284; J1200; J2765

== ENCOUNTER → 2021-10-25 | Outpatient (REF) | payer OTHER ==
[2021-10-26 11:47] LABS: GC DNA AMPLIFICATION NEGATIVE (NEGATIVE)
== END ==
LOC: M PLALAB 12:12
PROVIDERS: ATTEND Specialist
DX: Z01.419 Encounter for gynecological examination (general) (routine) without abnormal findings (principal)

== ENCOUNTER → 2021-10-27 | Outpatient (CLI) | payer OTHER ==
[2021-10-27 17:59] LABS: HEMOGLOBIN A1c 4.8 %
== END ==
LOC: M LAB 17:03
PROVIDERS: ATTEND Internal Medicine Cardiovascular Disease
DX: I49.3 Ventricular premature depolarization (principal); E66.3 Overweight

== ENCOUNTER 2021-11-17 16:54 | Emergency (ER) | payer OTHER ==
[2021-11-17] MEDS ORDERED: EUCR2OIN (17:11)
[2021-11-17] MEDS ORDERED: PHEN-239 (17:11)
[2021-11-17 18:17] VITALS: BP 120/73
== END 2021-11-17 19:12 | disposition left against medical advice (07) ==
LOC: M ED 16:54 → EDBD 16:54 → M ED 19:12
DX: Z53.21 Procedure and treatment not carried out due to patient leaving prior to being seen by health care provider (principal)

== ENCOUNTER → 2021-12-13 | Outpatient (CLI) | payer OTHER ==
[~2021-12-13] MED LIST changes: +EUCR2OIN; +PHEN-239
== END ==
LOC: M PLALAB 14:09
PROVIDERS: ATTEND Specialist
DX: Q96.9 Turner's syndrome, unspecified (principal)

== ENCOUNTER 2022-01-16 00:57 | Emergency (ER) | payer MEDICARE, OTHER ==
[~2022-01-16] VITALS: Ht 170.2 cm; Wt 70.5 kg
[2022-01-16 01:01] VITALS: BP 123/78
[2022-01-16] MEDS ORDERED: VALI2TAB PO (06:31)
== END 2022-01-16 01:45 | disposition left against medical advice (07) ==
LOC: M ED 00:57
DX: Z53.21 Procedure and treatment not carried out due to patient leaving prior to being seen by health care provider (principal)

== ENCOUNTER 2022-01-16 02:48 | Emergency (ER) | payer MEDICARE, OTHER ==
[2022-01-16] MEDS ORDERED: diazePAM 10MG/2ML SYRINGE (J3360 PER 5MG) IM ONE (04:05)
[2022-01-16 05:00] LABS: BASO % 0.2 % (0.0-1.0); EOS % 0.5 % (0.0-3.0); HEMATOCRIT 41.3 % (36.0-47.0); HEMOGLOBIN 14.4 g/dl (12.0-15.5); LYMPH # 2.6 10^3/uL (1.5-5.0); LYMPH % 31.5 % (24.0-44.0); MEAN CORPUSCULAR HEMOGLOBIN 29.8 pg (27.0-33.0); MEAN CORPUSCULAR HGB CONC 34.9 g/dl (32.0-36.5); MEAN CORPUSCULAR VOLUME 85.3 fl (80.0-96.0); MONO # 0.9 10^3/uL (0.0-0.8); MONO % 10.3 % (2.0-8.0); NEUTROPHILS # 4.7 10^3/uL (1.5-8.5); NEUTROPHILS % 57.3 % (36.0-66.0); PLATELET COUNT, AUTOMATED 334 10^3/uL (150-450); RED BLOOD COUNT 4.84 10^6/uL (4.00-5.40); WHITE BLOOD COUNT 8.2 10^3/uL (4.0-10.0)
[2022-01-16 05:19] LABS: ERYTHROCYTE SEDIMENTATION RATE 9 mm/hr (0-20)
[2022-01-16] MEDS ORDERED: VALI2TAB PO (06:31)
[2022-01-16 07:17] VITALS: BP 128/89
== END 2022-01-16 07:22 | disposition home or self-care (01) ==
LOC: M ED 02:48
DX: M62.838 Other muscle spasm (principal); Q79.60 Ehlers-Danlos syndrome, unspecified; R51.9 Headache, unspecified; Z90.49 Acquired absence of other specified parts of digestive tract; Z88.6 Allergy status to analgesic agent; Z88.5 Allergy status to narcotic agent; Z91.048 Other nonmedicinal substance allergy status; Z79.899 Other long term (current) drug therapy
CPT/HCPCS: 36415; 71045; 80047; 83735; 85025; 85652; 96372; 99284; J3360

== ENCOUNTER → 2022-01-23 | Outpatient (REF) | payer MEDICARE, OTHER ==
[~2022-01-23] MED LIST changes: +VALI2TAB PO
== END ==
LOC: M LAB REF 17:03
PROVIDERS: ATTEND Nurse Practitioner Family
DX: R30.0 Dysuria (principal)

== ENCOUNTER 2022-02-22 00:24 | Emergency (ER) | payer MEDICARE, OTHER ==
[~2022-02-22] VITALS: Ht 170.2 cm; Wt 70.5 kg
[2022-02-22] MEDS ORDERED: CYCLOBENZAPRINE 5MG TABLET PO ONE (03:55)
[2022-02-22] MEDS ORDERED: CYCL5TAB PO (04:00)
[2022-02-22 04:15] VITALS: BP 116/66
== END 2022-02-22 04:56 | disposition home or self-care (01) ==
LOC: M ED 00:24 → EDBD 00:24 → M ED 04:56
DX: M54.2 Cervicalgia (principal); Q79.60 Ehlers-Danlos syndrome, unspecified; R56.9 Unspecified convulsions; Z88.6 Allergy status to analgesic agent; Z88.5 Allergy status to narcotic agent; Z91.048 Other nonmedicinal substance allergy status; Z91.040 Latex allergy status; Z79.899 Other long term (current) drug therapy

== ENCOUNTER → 2022-03-21 | Outpatient (CLI) | payer MEDICARE, OTHER ==
[~2022-03-21] MED LIST changes: +FISH10005 PO; -FISH7.5C PO
== END ==
LOC: M LAB 17:05
PROVIDERS: ATTEND Internal Medicine Hematology & Oncology
DX: E34.50 Androgen insensitivity syndrome, unspecified (principal)

== ENCOUNTER → 2022-04-28 | Outpatient (CLI) | payer MEDICAID, MEDICARE, OTHER ==
[~2022-04-28] MED LIST changes: +ISOVUE-370 76% 100ML VIAL As Ordered ONE
== END ==
LOC: M RAD 11:56
PROVIDERS: ATTEND Otolaryngology
DX: M54.2 Cervicalgia (principal)
CPT/HCPCS: 70491; Q9967

== ENCOUNTER 2022-09-10 00:31 | Inpatient (IN) | payer MEDICARE, OTHER ==
[~2022-09-10] VITALS: Ht 170.2 cm; Wt 71.2 kg
[~2022-09-10 00:31] MED LIST changes: -ISOVUE-370 76% 100ML VIAL As Ordered ONE
[2022-09-10 01:12] LABS: HEMATOCRIT 41.7 % (36.0-47.0); HEMOGLOBIN 14.4 g/dl (12.0-15.5); MEAN CORPUSCULAR HEMOGLOBIN 29.6 pg (27.0-33.0); MEAN CORPUSCULAR HGB CONC 34.5 g/dl (32.0-36.5); MEAN CORPUSCULAR VOLUME 85.8 fl (80.0-96.0); PLATELET COUNT, AUTOMATED 372 10^3/uL (150-450); RED BLOOD COUNT 4.86 10^6/uL (4.00-5.40); WHITE BLOOD COUNT 8.5 10^3/uL (4.0-10.0)
[2022-09-10 01:36] LABS: ETHYL ALCOHOL (ETHANOL) < 0.003 % (0.000-0.010)
[2022-09-10 01:38] LABS: ACETAMINOPHEN LEVEL < 2.0 UG/ML (10.0-20.0); ALBUMIN 4.7 G/DL (3.2-5.2); ALKALINE PHOSPHATASE 77 U/L (46-116); ALT/SGPT 19 U/L (7.0-40); AST/SGOT < 8 U/L (<34); BILIRUBIN,DIRECT 0.3 MG/DL (<0.4); BILIRUBIN,TOTAL 0.7 MG/DL (0.3-1.2); BLOOD UREA NITROGEN 8 MG/DL (9-23); CALCIUM LEVEL 9.2 MG/DL (8.5-10.1); CARBON DIOXIDE LEVEL 25 MMOL/L (20-31); CHLORIDE LEVEL 103 MMOL/L (98-107); CREATININE FOR GFR 0.51 MG/DL (0.55-1.30); GLOMERULAR FILTRATION RATE > 60.0 (>60); GLUCOSE, FASTING 116 MG/DL (60-100); POTASSIUM SERUM 3.3 MMOL/L (3.5-5.1); SALICYLATE LEVEL < 3.0 MG/DL (<30); SODIUM LEVEL 137 MMOL/L (136-145); TOTAL PROTEIN 7.8 G/DL (5.7-8.2)
[2022-09-10 01:40] LABS: THYROID STIMULATING HORMONE 1.423 uIU/ML (0.55-4.78)
[2022-09-10 01:47] LABS: HCG, SERUM QUALITATIVE NEGATIVE (NEGATIVE)
[2022-09-10] MEDS ORDERED: HALOPERIDOL 5MG/ML 1ML VIAL IM ONE (03:25)
[2022-09-10] MEDS ORDERED: MIDAZOLAM INJ 2MG/2ML VIAL IM ONE (03:25)
[2022-09-10] MEDS ORDERED: diphenhydrAMINE 50MG/ML VIAL IM ONE (03:25)
[2022-09-10 07:08] LABS: AMPHETAMINES LEVEL URINE NEGATIVE (NEGATIVE); BARBITURATES URINE NEGATIVE (NEGATIVE); COCAINE METABOLITE URINE NEGATIVE (NEGATIVE); METHADONE URINE NEGATIVE (NEGATIVE); OPIATES URINE NEGATIVE (NEGATIVE)
[2022-09-10 07:09] LABS: PHENCYCLIDINE URINE NEGATIVE (NEGATIVE)
[2022-09-10 07:17] LABS: BENZODIAZEPINES URINE POSITIVE (NEGATIVE); CANNABINOIDS URINE POSITIVE (NEGATIVE)
[2022-09-10] MEDS ORDERED: ACETAMINOPHEN TAB 650MG DOSE (2X325MG) PO ONE (09:05)
[2022-09-10] MEDS ORDERED: LORazepam 2 MG TAB PO STA (10:16)
[2022-09-10] MEDS ORDERED: diphenhydrAMINE 25MG CAP PO ONE (10:20)
[2022-09-10] MEDS ORDERED: HOME MED LIST COMPLETE! XX SCH (11:00)
[2022-09-11] MEDS ORDERED: MAALOX 30 ML SUSP *UDC PO PRN (14:40)
[2022-09-11] MEDS ORDERED: MOM 30ML SUSPENSION UDC PO PRN (14:40)
[2022-09-11] MEDS ORDERED: traZODone 50 MG TAB PO PRN (14:40)
[2022-09-11] MEDS ORDERED: ACETAMINOPHEN TAB 650MG DOSE (2X325MG) PO PRN (14:40)
[2022-09-12 06:44] VITALS: BP 138/78
[2022-09-12] MEDS: OLANZapine ORAL DISINTEGRATING TAB 5MG PO PRN ×3 (09:17→22:40)
[2022-09-12 17:14] VITALS: BP 131/83
[2022-09-12] MEDS ORDERED: ANALGESIC BALM CRM 3OZ TOP PRN (17:15)
[2022-09-12] MEDS ORDERED: KETOROLAC TROMETHAMINE 10 MG TAB PO ONE (18:00)
[2022-09-12] MEDS: LIDOCAINE 5% (LIDODERM) PATCH TD SCH (20:59)
[2022-09-12] MEDS: OLANZapine 5 MG TAB PO SCH (20:59)
[2022-09-13] MEDS ORDERED: KETOROLAC TROMETHAMINE 10 MG TAB PO PRN
[2022-09-13] MEDS: OLANZapine ORAL DISINTEGRATING TAB 5MG PO PRN ×2 (04:55→17:11)
[2022-09-13 06:52] VITALS: BP 129/69
[2022-09-13] MEDS: OLANZapine 5 MG TAB PO SCH ×2 (10:15→21:25)
[2022-09-13] MEDS: LIDOCAINE 5% (LIDODERM) PATCH TD SCH (21:25)
[2022-09-14] MEDS: OLANZapine 10 MG TAB PO SCH ×2 (08:09→21:14)
[2022-09-14] MEDS: OLANZapine ORAL DISINTEGRATING TAB 5MG PO PRN (15:17)
[2022-09-14 18:44] VITALS: BP 117/74
[2022-09-14] MEDS: traZODone 100 MG TAB PO SCH (21:00)
[2022-09-14] MEDS: LIDOCAINE 5% (LIDODERM) PATCH TD SCH ×2 (21:00→21:15)
[2022-09-15] MEDS: OLANZapine ORAL DISINTEGRATING TAB 5MG PO PRN (02:16)
[2022-09-15] MEDS: OLANZapine 10 MG TAB PO SCH ×3 (09:00→20:47)
[2022-09-15] MEDS: LIDOCAINE 5% (LIDODERM) PATCH TD SCH (20:48)
[2022-09-15] MEDS: traZODone 100 MG TAB PO SCH (21:00)
[2022-09-16] MEDS: OLANZapine 10 MG TAB PO SCH ×2 (08:18→21:24)
[2022-09-16] MEDS: OLANZapine ORAL DISINTEGRATING TAB 5MG PO PRN ×2 (08:18→17:37)
[2022-09-16] MEDS: traZODone 100 MG TAB PO SCH (21:00)
[2022-09-16] MEDS: LIDOCAINE 5% (LIDODERM) PATCH TD SCH (21:00)
[2022-09-17] MEDS: OLANZapine 10 MG TAB PO SCH ×2 (08:33→20:47)
[2022-09-17] MEDS: OLANZapine ORAL DISINTEGRATING TAB 5MG PO PRN ×2 (16:23→23:11)
[2022-09-17] MEDS: traZODone 100 MG TAB PO SCH ×2 (20:47→20:58)
[2022-09-17] MEDS: LIDOCAINE 5% (LIDODERM) PATCH TD SCH (20:48)
[2022-09-18] MEDS: OLANZapine 10 MG TAB PO SCH (10:16)
[2022-09-18 17:23] VITALS: BP 120/68
[2022-09-18] MEDS: LIDOCAINE 5% (LIDODERM) PATCH TD SCH (21:00)
[2022-09-18] MEDS: traZODone 100 MG TAB PO SCH (21:00)
[2022-09-18] MEDS ORDERED: VANICREAM MOISTURIZING SKIN CREAM 113GM TUBE TOP PRN (21:35)
[2022-09-19 16:27] VITALS: BP 126/68
[2022-09-19] MEDS: traZODone 100 MG TAB PO SCH (21:00)
[2022-09-19] MEDS: LIDOCAINE 5% (LIDODERM) PATCH TD SCH (21:00)
[2022-09-20 07:04] VITALS: BP 99/54
[2022-09-20 17:14] VITALS: BP 109/60
[2022-09-20] MEDS: traZODone 100 MG TAB PO SCH (20:35)
[2022-09-20] MEDS: LIDOCAINE 5% (LIDODERM) PATCH TD SCH (20:36)
[2022-09-21] MEDS ORDERED: HALO5TAB33 PO (11:07)
== END 2022-09-21 14:07 | disposition home or self-care (01) | DRG 885 ==
LOC: M ED 00:31 → M ED INP 09-11 14:37 → M PSY 09-11 14:38
PROVIDERS: ADMIT Psychiatry & Neurology Psychiatry; ATTEND Psychiatry & Neurology Psychiatry
DX: F29 Unspecified psychosis not due to a substance or known physiological condition (principal); F12.10 Cannabis abuse, uncomplicated; M51.36 Other intervertebral disc degeneration, lumbar region; M47.812 Spondylosis without myelopathy or radiculopathy, cervical region; G43.909 Migraine, unspecified, not intractable, without status migrainosus; F19.159 Other psychoactive substance abuse with psychoactive substance-induced psychotic disorder, unspecified; Z88.5 Allergy status to narcotic agent; Z88.6 Allergy status to analgesic agent; Z91.040 Latex allergy status; Z91.048 Other nonmedicinal substance allergy status

== ENCOUNTER → 2023-01-18 | Outpatient (CLI) | payer OTHER ==
[~2023-01-18] MED LIST changes: +HALO5TAB33 PO
[2023-01-18 16:00] LABS: HEPATITIS B SURFACE ANTIGEN NEGATIVE (NEGATIVE)
[2023-01-18 16:13] LABS: HIV 1&2 SCREEN NEGATIVE (NEGATIVE)
[2023-01-18 16:21] LABS: HEPATITIS C VIRUS ABY INDEX 0.09 INDEX (<0.8)
[2023-01-18 16:22] LABS: HEPATITIS B CORE ANTIBODY IGM NEGATIVE (NEGATIVE)
[2023-01-18 17:17] LABS: GC DNA AMPLIFICATION NEGATIVE (NEGATIVE)
[2023-01-18 19:40] LABS: GC DNA AMPLIFICATION NEGATIVE (NEGATIVE)
== END ==
LOC: M PLALAB 13:01
PROVIDERS: ATTEND Nurse Practitioner Family
DX: Z12.4 Encounter for screening for malignant neoplasm of cervix (principal); Z11.3 Encounter for screening for infections with a predominantly sexual mode of transmission
CPT/HCPCS: 36415; 86705; 86780; 86803; 87340; 87389; 87624; 87661; 87810; 87850; G0123

== ENCOUNTER 2023-02-04 02:10 | Emergency (ER) | payer OTHER ==
[2023-02-04 02:10] VITALS: BP 150/92; TEMP 98.4; O2SAT 98
[2023-02-05] MEDS ORDERED: EUCR2OIN TOP (17:35)
[2023-02-05] MEDS ORDERED: RISP-8 PO (17:35)
[2023-02-05] MEDS ORDERED: CYCL-707 PO (17:35)
[2023-02-05] MEDS ORDERED: PHEN-239 PO (17:35)
[2023-02-05] MEDS ORDERED: GABA-1171 PO (17:35)
[2023-02-05] MEDS ORDERED: DULO1CAP5 PO (17:38)
[2023-02-05] MEDS ORDERED: DULO1CAP6 PO (17:38)
== END 2023-02-04 04:22 | disposition left against medical advice (07) ==
LOC: M ED 02:10
DX: Z53.21 Procedure and treatment not carried out due to patient leaving prior to being seen by health care provider (principal)

== ENCOUNTER 2023-02-04 22:47 | Inpatient (IN) | payer OTHER ==
[~2023-02-04] VITALS: Ht 170.2 cm; Wt 74.5 kg
[2023-02-04 23:11] LABS: HEMATOCRIT 37.5 % (36.0-47.0); HEMOGLOBIN 12.8 g/dl (12.0-15.5); MEAN CORPUSCULAR HEMOGLOBIN 29.8 pg (27.0-33.0); MEAN CORPUSCULAR HGB CONC 34.1 g/dl (32.0-36.5); MEAN CORPUSCULAR VOLUME 87.2 fl (80.0-96.0); PLATELET COUNT, AUTOMATED 346 10^3/uL (150-450); WHITE BLOOD COUNT 11.3 10^3/uL (4.0-10.0)
[2023-02-04 23:26] LABS: ETHYL ALCOHOL (ETHANOL) < 0.003 % (0.000-0.010)
[2023-02-04 23:28] LABS: ACETAMINOPHEN LEVEL < 2.0 UG/ML (10.0-20.0); SALICYLATE LEVEL < 3.0 MG/DL (<30)
[2023-02-04 23:29] LABS: ALBUMIN 4.4 G/DL (3.2-5.2); ALKALINE PHOSPHATASE 74 U/L (46-116); ALT/SGPT < 9 U/L (7.0-40); AST/SGOT < 8 U/L (<34); BILIRUBIN,DIRECT 0.2 MG/DL (<0.4); BILIRUBIN,TOTAL 0.7 MG/DL (0.3-1.2); BLOOD UREA NITROGEN 13 MG/DL (9-23); CALCIUM LEVEL 8.7 MG/DL (8.5-10.1); CARBON DIOXIDE LEVEL 22 MMOL/L (20-31); CHLORIDE LEVEL 105 MMOL/L (98-107); CREATININE FOR GFR 0.51 MG/DL (0.55-1.30); GLOMERULAR FILTRATION RATE > 60.0 (>60); GLUCOSE, FASTING 94 MG/DL (60-100); POTASSIUM SERUM 3.2 MMOL/L (3.5-5.1); SODIUM LEVEL 138 MMOL/L (136-145); TOTAL PROTEIN 7.2 G/DL (5.7-8.2)
[2023-02-04 23:31] LABS: THYROID STIMULATING HORMONE 1.792 uIU/ML (0.55-4.78)
[2023-02-05 03:19] LABS: BARBITURATES URINE NEGATIVE (NEGATIVE); BENZODIAZEPINES URINE NEGATIVE (NEGATIVE); COCAINE METABOLITE URINE NEGATIVE (NEGATIVE); METHADONE URINE NEGATIVE (NEGATIVE); OPIATES URINE NEGATIVE (NEGATIVE); PHENCYCLIDINE URINE NEGATIVE (NEGATIVE)
[2023-02-05 03:21] LABS: AMPHETAMINES LEVEL URINE POSITIVE (NEGATIVE); CANNABINOIDS URINE POSITIVE (NEGATIVE)
[2023-02-05] MEDS ORDERED: LORazepam 2 MG TAB PO ONE (04:35)
[2023-02-05] MEDS ORDERED: ISOVUE-370 76% 100ML VIAL As Ordered ONE (07:15)
[2023-02-05 07:55] LABS: HCG, SERUM QUALITATIVE NEGATIVE (NEGATIVE)
[2023-02-05] MEDS ORDERED: POTASSIUM CHLORIDE 10MEQ SR TABLET PO ONE (08:15)
[2023-02-05] MEDS: NICOTINE 14 MG/24 HR TRANSDERMAL TD SCH (09:00)
[2023-02-05] MEDS ORDERED: MAALOX 30 ML SUSP *UDC PO PRN (14:40)
[2023-02-05] MEDS ORDERED: ACETAMINOPHEN TAB 650MG DOSE (2X325MG) PO PRN (14:40)
[2023-02-05] MEDS ORDERED: MOM 30ML SUSPENSION UDC PO PRN (14:40)
[2023-02-05] MEDS ORDERED: MED REC IN PROGRESS XX SCH (16:05)
[2023-02-05 17:32] VITALS: BP 133/88; TEMP 98; O2SAT 100
[2023-02-05] MEDS ORDERED: EUCR2OIN TOP (17:35)
[2023-02-05] MEDS ORDERED: CYCL-707 PO (17:35)
[2023-02-05] MEDS ORDERED: RISP-8 PO (17:35)
[2023-02-05] MEDS ORDERED: GABA-1171 PO (17:35)
[2023-02-05] MEDS ORDERED: PHEN-239 PO (17:35)
[2023-02-05] MEDS ORDERED: DULO1CAP5 PO (17:38)
[2023-02-05] MEDS ORDERED: DULO1CAP6 PO (17:38)
[2023-02-05] MEDS ORDERED: HOME MED LIST COMPLETE! XX SCH (17:40)
[2023-02-05] MEDS: diphenhydrAMINE 25MG CAP PO PRN (17:54)
[2023-02-05] MEDS: OLANZapine ORAL DISINTEGRATING TAB 5MG PO PRN (17:54)
[2023-02-05] MEDS: traZODone 50 MG TAB PO PRN (21:52)
[2023-02-06] MEDS: OLANZapine ORAL DISINTEGRATING TAB 5MG PO PRN ×2 (03:41→21:40)
[2023-02-06 06:16] VITALS: BP 135/83; TEMP 98.7; O2SAT 100
[2023-02-06] MEDS ORDERED: POTASSIUM CHLORIDE 10MEQ SR TABLET PO ONE (08:15)
[2023-02-06] MEDS ORDERED: OLANZapine 5 MG TAB PO SCH (09:00)
[2023-02-06] MEDS: NICOTINE 14 MG/24 HR TRANSDERMAL TD SCH (09:00)
[2023-02-06] MEDS: PALIPERIDONE 6MG ER TAB (INVEGA) PO SCH (09:30)
[2023-02-06 18:53] VITALS: BP 111/67; TEMP 97.7
[2023-02-06] MEDS: traZODone 50 MG TAB PO PRN (21:40)
[2023-02-07 06:09] VITALS: BP 107/57; TEMP 97.9; O2SAT 97
[2023-02-07] MEDS: PALIPERIDONE 6MG ER TAB (INVEGA) PO SCH (09:43)
[2023-02-07 12:29] LABS: CHOLESTEROL RISK RATIO 2.47 (<5); HDL CHOLESTEROL 48.1 MG/DL (>40); LDL CHOLESTEROL 58.3 MG/DL (<100); NON-HDL-C 70.9 MG/DL
[2023-02-07] MEDS: NICOTINE 14 MG/24 HR TRANSDERMAL TD SCH (16:02)
[2023-02-07] MEDS: OLANZapine ORAL DISINTEGRATING TAB 5MG PO PRN (17:31)
[2023-02-07 18:30] VITALS: BP 113/66; TEMP 98.1
[2023-02-07] MEDS: traZODone 50 MG TAB PO PRN (22:22)
[2023-02-07] MEDS: diphenhydrAMINE 25MG CAP PO PRN (22:23)
[2023-02-08] MEDS: diphenhydrAMINE 25MG CAP PO PRN ×2 (05:28→14:59)
[2023-02-08] MEDS: OLANZapine ORAL DISINTEGRATING TAB 5MG PO PRN ×3 (05:28→20:44)
[2023-02-08 06:45] VITALS: BP 107/56; TEMP 98.1; O2SAT 98
[2023-02-08] MEDS: PALIPERIDONE 3MG ER TAB (INVEGA) PO SCH (09:56)
[2023-02-08] MEDS: NICOTINE 14 MG/24 HR TRANSDERMAL TD SCH ×3 (09:57→13:42)
[2023-02-08] MEDS ORDERED: PALIPERIDONE PAL 234MG/1.5ML INJ (INVEGA)(FREE PSY INPT ONLY) IM ONE (11:00)
[2023-02-08 18:16] VITALS: BP 144/84; TEMP 97
[2023-02-08] MEDS: traZODone 50 MG TAB PO PRN (20:44)
[2023-02-09 06:40] VITALS: BP 154/72; TEMP 97.8; O2SAT 98
[2023-02-09] MEDS: PALIPERIDONE 3MG ER TAB (INVEGA) PO SCH (07:16)
[2023-02-09] MEDS: OLANZapine ORAL DISINTEGRATING TAB 5MG PO PRN ×2 (07:18→15:18)
[2023-02-09] MEDS: NICOTINE 14 MG/24 HR TRANSDERMAL TD SCH (07:19)
[2023-02-09] MEDS ORDERED: TRAZ-252 PO (13:48)
[2023-02-09] MEDS ORDERED: OLAN5ZYD PO (13:48)
[2023-02-09] MEDS ORDERED: PALI1TAB4 PO (13:48)
[2023-02-09] MEDS ORDERED: INVE156I IM (13:48)
[2023-02-09] MEDS ORDERED: NICO14PA TD (13:48)
== END 2023-02-09 15:24 | disposition home or self-care (01) | DRG 897 ==
LOC: M ED 22:47 → M ED INP 02-05 14:39 → M PSY 02-05 17:07
PROVIDERS: ADMIT Student in an Organized Health Care Education/Training Program; ATTEND Student in an Organized Health Care Education/Training Program
DX: F15.151 Other stimulant abuse with stimulant-induced psychotic disorder with hallucinations (principal); F12.151 Cannabis abuse with psychotic disorder with hallucinations; F17.200 Nicotine dependence, unspecified, uncomplicated; Q99.1 46, XX true hermaphrodite; E28.2 Polycystic ovarian syndrome; E87.6 Hypokalemia; M21.42 Flat foot [pes planus] (acquired), left foot; M21.41 Flat foot [pes planus] (acquired), right foot; Z91.048 Other nonmedicinal substance allergy status; Z88.5 Allergy status to narcotic agent; Z79.899 Other long term (current) drug therapy; Z88.6 Allergy status to analgesic agent; Z88.8 Allergy status to other drugs, medicaments and biological substances

== ENCOUNTER 2023-03-10 15:50 | Emergency (ER) | payer OTHER ==
[~2023-03-10] VITALS: Ht 170.2 cm; Wt 77.1 kg
[~2023-03-10 15:50] MED LIST changes: +CYCL-707 PO; +DULO1CAP5 PO; +EUCR2OIN TOP; +GABA-1171 PO; +INVE156I IM; +NICO14PA TD; +OLAN5ZYD PO; +PALI1TAB4 PO; +RISP-8 PO; +TRAZ-252 PO
[2023-03-10 15:52] VITALS: BP 119/79; TEMP 98.6; O2SAT 100
== END 2023-03-10 20:18 | disposition left against medical advice (07) ==
LOC: M ED 15:50
DX: Z53.21 Procedure and treatment not carried out due to patient leaving prior to being seen by health care provider (principal)

== ENCOUNTER 2023-06-11 03:05 | Emergency (ER) | payer MEDICAID, MEDICARE, OTHER ==
[~2023-06-11] VITALS: Ht 170.2 cm; Wt 72.7 kg
[~2023-06-11 03:05] MED LIST changes: +HYDR-3713 PO
[2023-06-11 03:09] VITALS: BP 105/55; TEMP 98.6; O2SAT 100
[2023-06-11] MEDS ORDERED: METAL LOCK LOOP XX ONE (06:02)
== END 2023-06-11 06:20 | disposition left against medical advice (07) ==
LOC: M ED 03:05
DX: Z53.21 Procedure and treatment not carried out due to patient leaving prior to being seen by health care provider (principal)

== ENCOUNTER 2023-06-16 12:00 | Emergency (ER) | payer OTHER ==
[~2023-06-16] VITALS: Ht 170.2 cm; Wt 77.3 kg
[2023-06-16 12:02] VITALS: BP 124/78; TEMP 98.4; O2SAT 97
== END 2023-06-16 13:56 | disposition home or self-care (01) ==
LOC: M ED 12:00
DX: F22 Delusional disorders (principal); F29 Unspecified psychosis not due to a substance or known physiological condition; F19.10 Other psychoactive substance abuse, uncomplicated; Z79.899 Other long term (current) drug therapy; Z88.8 Allergy status to other drugs, medicaments and biological substances; Z91.040 Latex allergy status; Z91.89 Other specified personal risk factors, not elsewhere classified

== ENCOUNTER 2023-06-18 15:04 | Emergency (ER) | payer OTHER ==
[~2023-06-18] VITALS: Ht 170.2 cm; Wt 78.2 kg
[2023-06-18 15:05] VITALS: TEMP 98.2
[2023-06-18] MEDS ORDERED: NAPR-885 (15:16)
[2023-06-18] MEDS ORDERED: HYDR-3363 (15:16)
[2023-06-18] MEDS ORDERED: DULO1CAP6 (15:16)
[2023-06-18 18:01] VITALS: BP 131/77; O2SAT 100
== END 2023-06-18 19:03 | disposition home or self-care (01) ==
LOC: M ED 15:04
DX: F20.9 Schizophrenia, unspecified (principal); F23 Brief psychotic disorder; Z79.899 Other long term (current) drug therapy

== ENCOUNTER 2023-06-29 22:28 | Emergency (ER) | payer OTHER ==
[~2023-06-29] VITALS: Ht 167.6 cm; Wt 76.0 kg
[2023-06-29 22:28] VITALS: BP 112/82; TEMP 98.6; O2SAT 100
[~2023-06-29 22:28] MED LIST changes: +DULO1CAP6; +NAPR-885
== END 2023-06-29 23:48 | disposition left against medical advice (07) ==
LOC: M ED 22:28
DX: Z53.21 Procedure and treatment not carried out due to patient leaving prior to being seen by health care provider (principal)

== ENCOUNTER 2023-12-26 19:31 | Emergency (ER) | payer OTHER, MEDICAID ==
[~2023-12-26] VITALS: Ht 172.7 cm; Wt 65.5 kg
[~2023-12-26 19:31] MED LIST changes: +FERR1TAB8 PO; +RISP-105 PO; -RISP-8 PO
[2023-12-26 20:44] VITALS: BP 120/64; TEMP 98.8; O2SAT 98
== END 2023-12-26 20:57 | disposition home or self-care (01) ==
LOC: M ED 19:31
DX: M99.00 Segmental and somatic dysfunction of head region (principal); Z88.8 Allergy status to other drugs, medicaments and biological substances; Z91.040 Latex allergy status; Z91.048 Other nonmedicinal substance allergy status

== ENCOUNTER 2024-01-15 15:34 | Emergency (ER) | payer OTHER, MEDICAID ==
[~2024-01-15] VITALS: Ht 170.2 cm; Wt 65.3 kg
[~2024-01-15 15:34] MED LIST changes: +ONDA-282 PO; -ONDA4TAB6 PO
[2024-01-15] MEDS ORDERED: HYDR-643 PO (15:49)
[2024-01-15] MEDS ORDERED: METH-1164 PO (18:31)
[2024-01-15 18:41] VITALS: BP 118/78; TEMP 97; O2SAT 98
== END 2024-01-15 18:42 | disposition home or self-care (01) ==
LOC: M ED 15:34
DX: R51.9 Headache, unspecified (principal); M62.838 Other muscle spasm; K21.9 Gastro-esophageal reflux disease without esophagitis; F17.290 Nicotine dependence, other tobacco product, uncomplicated; F12.10 Cannabis abuse, uncomplicated; Z88.8 Allergy status to other drugs, medicaments and biological substances; Z91.040 Latex allergy status; Z91.048 Other nonmedicinal substance allergy status; Z79.899 Other long term (current) drug therapy

== ENCOUNTER 2024-02-03 01:49 | Emergency (ER) | payer OTHER, MEDICAID ==
[~2024-02-03] VITALS: Ht 170.2 cm; Wt 64.9 kg
[~2024-02-03 01:49] MED LIST changes: +HYDR-643 PO; +METH-1164 PO
[2024-02-03 11:35] LABS: BASO % 0.2 % (0.0-1.0); EOS # 0.1 10^3/uL (0.0-0.5); EOS % 1.1 % (0.0-3.0); HEMATOCRIT 36.4 % (36.0-47.0); HEMOGLOBIN 12.1 g/dl (12.0-15.5); LYMPH # 1.2 10^3/uL (1.5-5.0); LYMPH % 22.4 % (24.0-44.0); MEAN CORPUSCULAR HEMOGLOBIN 29.1 pg (27.0-33.0); MEAN CORPUSCULAR HGB CONC 33.2 g/dl (32.0-36.5); MEAN CORPUSCULAR VOLUME 87.5 fl (80.0-96.0); MONO # 0.6 10^3/uL (0.0-0.8); MONO % 11.7 % (2.0-8.0); NEUTROPHILS # 3.5 10^3/uL (1.5-8.5); NEUTROPHILS % 64.4 % (36.0-66.0); PLATELET COUNT, AUTOMATED 249 10^3/uL (150-450); RED BLOOD COUNT 4.16 10^6/uL (4.00-5.40); WHITE BLOOD COUNT 5.4 10^3/uL (4.0-10.0)
[2024-02-03 11:57] LABS: AMPHETAMINES LEVEL URINE NEGATIVE (NEGATIVE); BARBITURATES URINE NEGATIVE (NEGATIVE); BENZODIAZEPINES URINE NEGATIVE (NEGATIVE); CANNABINOIDS URINE NEGATIVE (NEGATIVE); COCAINE METABOLITE URINE NEGATIVE (NEGATIVE); METHADONE URINE NEGATIVE (NEGATIVE); OPIATES URINE NEGATIVE (NEGATIVE); PHENCYCLIDINE URINE NEGATIVE (NEGATIVE)
[2024-02-03 11:58] LABS: ETHYL ALCOHOL (ETHANOL) < 0.003 % (0.000-0.010)
[2024-02-03 11:59] LABS: BLOOD UREA NITROGEN 10 MG/DL (9-23); CALCIUM LEVEL 8.7 MG/DL (8.5-10.1); CARBON DIOXIDE LEVEL 27 MMOL/L (20-31); CHLORIDE LEVEL 110 MMOL/L (98-107); CREATININE FOR GFR 0.48 MG/DL (0.55-1.30); GLOMERULAR FILTRATION RATE > 60.0 (>60); GLUCOSE, FASTING 71 MG/DL (60-100); POTASSIUM SERUM 3.6 MMOL/L (3.5-5.1); SALICYLATE LEVEL < 3.0 MG/DL (<30); SODIUM LEVEL 143 MMOL/L (136-145)
[2024-02-03 12:04] VITALS: BP 131/64; TEMP 98.2; O2SAT 100
[2024-02-03 13:59] LABS: Trichomonas vaginalis (AMP) NOT DETECTED (NEGATIVE)
[2024-02-03 14:22] LABS: GC DNA AMPLIFICATION NEGATIVE (NEGATIVE)
== END 2024-02-03 13:14 | disposition home or self-care (01) ==
LOC: M ED 01:49
DX: F22 Delusional disorders (principal); R20.8 Other disturbances of skin sensation; R51.9 Headache, unspecified; Z88.8 Allergy status to other drugs, medicaments and biological substances; Z91.040 Latex allergy status; Z91.048 Other nonmedicinal substance allergy status; Z79.899 Other long term (current) drug therapy

== ENCOUNTER 2024-02-12 16:51 | Emergency (ER) | payer OTHER, MEDICAID | END 2024-02-12 17:00 | disposition left against medical advice (07) | LOC: EDBD 16:51 → M ED 16:51 | DX: Z53.21 Procedure and treatment not carried out due to patient leaving prior to being seen by health care provider (principal) ==